=== PATIENT | male | born 1955 | race Caucasian/White ===

== ENCOUNTER 2016-02-27 15:15 | Emergency (ER) | payer MEDICARE ==
[~2016-02-27 15:15] MED LIST: AMN100C PO; ASPI-973 PO; ATOR20TA65 PO; BENZ1TAB7 PO; BENZ2AMP3 IJ; CARB1TAB14 PO; CHOL200025 PO; FLUO40CA12 PO; HYDR12.5 PO; LACT10SO27 PO; LORA1TAB PO; OXYB5TAB10 PO; PRAZ2CAP2 PO; PRIM50TA PO; TRAZ-118 PO; ZOLP10TA5 PO
[2016-02-27 15:24] VITALS: BP 139/80; PULSE 77; RESP 19; O2SAT 93
[2016-02-27 15:44] LABS: BASOPHILS % (AUTO) 0.6 % (0-3); EOSINOPHILS % (AUTO) 4.1 % (0-5); MONOCYTES % (AUTO) 16.5 % (4-12); Mean Corpuscular Hemoglobin 31.3 pg (27.0-35.0); NEUTROPHILS % (AUTO) 40.4 % (40-74); Platelet Count 286 bil/L (150-400)
[2016-02-27 16:57] VITALS: BP 131/79; PULSE 70; RESP 16; O2SAT 96
--- NOTE | 2016-02-27 19:01 | ED.REPORT ---
HPI-Seizure Date of Service Feb 27, 2016 ED Provider: Joey Molina MD 60 year old male with a history of seizures, Parkinson's, PTSD and bipolar disorder presents to the ER via EMS due to seizure that occurred just prior to arrival. IM Versed administered by medics in the field. Currently he states that he "feels heavy". Associated symptom of neck "tightness". Patient denies chest pain, and headache. He takes Ativan for his seizures. Nursing Notes Stated Complaint: SEIZURE Chief Complaint: Seizure Nursing Notes Reviewed: Yes Allergies: Coded Allergies: haloperidol (Verified Allergy, Severe, Extrapyramidal Symptoms, 09/08/15) diazepam (Verified Adverse Reaction, Intermediate, sedation at low doses. , 09/08/15) Scheduled Amantadine (Amantadine) 100 Mg Cap 200 MG PO DAILY Aspirin (Aspirin) 81 Mg Tabec 81 MG PO DAILY Atorvastatin Calcium (Atorvastatin Calcium) 20 Mg Tablet 20 MG PO HS Benztropine Mesylate (Benztropine Mesylate) 1 Mg Tablet 1 MG PO BID Carbidopa/Levodopa 25-100 mg (Carbidopa/Levodopa 25-100 mg) 1 Each Tablet 2 TAB PO TID Cholecalciferol (Vitamin D3) (Vitamin D3) 2,000 Unit Tablet 2,000 UNIT PO DAILY Fluoxetine (Prozac) 40 Mg Capsule 40 MG PO DAILY Hydrochlorothiazide (Hydrochlorothiazide) 12.5 Mg Capsule 12.5 MG PO DAILY Lactulose (Lactulose) 10 Gm/15 Ml Solution 10 GM PO DAILY Oxybutynin Chloride (Oxybutynin Chloride) 5 Mg Tablet 5 MG PO BID Prazosin (Prazosin) 2 Mg Capsule 6 MG PO HS Primidone (Primidone) 50 Mg Tablet 25 MG PO HS Trazodone (Trazodone) 100 Mg Tablet 200 MG PO HS Scheduled PRN Benztropine Mesylate (Cogentin Inj) 2 Mg/2 Ml Ampul 2 MG IJ BID PRN PRN For Spasm Lorazepam (Lorazepam) 1 Mg Tablet 1 MG PO BID PRN PRN For Restlessness Zolpidem (Zolpidem) 10 Mg Tablet 10 MG PO HS PRN PRN For Sleep General Time Seen by Provider: 18:44 Chief Complaint Chief Complaint: Seizure, generalized Seizure Anatomic Location: Generalized Hx Obtained From: Patient Arrived By: Ambulance Onset Occurred: Just prior to arrival Associated with: Denies: Headache Similar Sx Previous: Yes Past Medical History Past Medical History Notes: PCP: Dr. Palm Neurologist: Dr. Frazier Past Medical History Parkinson's Schizophrenia (Bipolar) PTSD Reports: COPD, Hypertension Past Surgical History Neck surgery Smoking History Former Smoker Social History Resides at the [facility] Alcohol Use: Denies alcohol use Drug Use: Denies drug use Other Social History: Local resident Ambulatory Status Independent Review of Systems Constitutional: Denies: Chills, Fever Respiratory: Denies: Non-productive cough, Shortness of breath Cardiovascular: Denies: Chest pain Musculoskeletal: Reports: Neck pain ("tightness") Neurologic: Reports: Seizure, Denies: Headache Complete sys rev & neg: except as marked. Physical Exam Initial Vital Signs Vital Signs (First) Date Time Temp Pulse Resp B/P Pulse Ox O2 Delivery O2 Flow Rate FiO2 02/27/16 15:24 36.4 77 19 139/80 93 Room Air 02/27/16 16:57 2 Initial VS: Reviewed Head / Eyes: Atraumatic, Normocephalic, PERRL (5mm) Abdomen / GI: Soft, Non-tender, No guarding, No rebound, No distention Extremities: Vascular intact, Neuro intact, No swelling, No tenderness Skin: Warm, Dry, No cyanosis General/Constitutional: Awake, Alert Neck: Supple, No meningismus, Full range of motion, No swelling, Non-tender Respiratory / Chest: Breath sounds NL, Breath sounds = bilat, No respiratory distress, No rales, No rhonchi, No wheezing Cardiovascular: Heart rate NL, Regular rhythm, Heart sounds NL, Peripheral circulation NL Neurologic: No sensory deficits Mental Status: Positive: Disoriented to place Symmetric face. Interpretation & Diagnostics Lab Results Interpretation Result Diagram: 02/27/16 1541 02/27/16 1541 Test 02/27/16 15:41 White Blood Count 10.9th/mm3 (3.8-10.1) Red Blood Count 4.86mil/mm3 (4.40-5.80) Hemoglobin 15.2g/dL (13.8-17.2) Hematocrit 44.7% (41.0-50.0) Mean Corpuscular Volume 92.0fL (81-100) Mean Corpuscular Hemoglobin 31.3pg (27.0-35.0) Mean Corpuscular Hemoglobin Concent 34.0% (32.0-37.0) Red Cell Distribution Width 14.0% (12.3-15.4) Platelet Count 286bil/L (150-400) Neutrophils (%) (Auto) 40.4% (40-74) Lymphocytes (%) (Auto) 38.0% (14-46) Monocytes (%) (Auto) 16.5% (4-12) Eosinophils (%) (Auto) 4.1% (0-5) Basophils (%) (Auto) 0.6% (0-3) Sodium Level 140mEq/L (134-144) Potassium Level 4.3mEq/L (3.5-5.2) Chloride Level 103mEq/L (97-108) Carbon Dioxide Level 20mmol/L (18-29) Blood Urea Nitrogen 10mg/dL (8-27) Creatinine 0.77mg/dL (0.76-1.27) Estimat Glomerular Filtration Rate 110mL/min (>59) Glucose Level 106mg/dL (60-99) Calcium Level 9.0mg/dL (8.5-10.1) Total Bilirubin 0.2mg/dL (0.0-1.2) Aspartate Amino Transf (AST/SGOT) 33U/L (0-50) Alanine Aminotransferase (ALT/SGPT) 20U/L (0-44) Alkaline Phosphatase 86U/L (25-160) Total Protein 7.2g/dL (6.4-8.4) Albumin 4.0g/dL (3.4-5.0) Valproic Acid (Depakene) Level 37ug/mL (50-125) Re-Eval/Medical Decision Med Decision/Clinical Course Even recent visits for abnormal movements and tardive dyskinesia, it is not clear to me that seizure is the diagnosis here. The patient does not have a seizure disorder as far as he knows nor do I find documentation of same in the chart. He was heavily medicated prior to arrival and has had no abnormal movements while here. His valproic acid level is low and therefore I have dosed him with a triple dose of Depakote ER and given 1 mg of Cogentin. I will recommend outpatient follow-up closely and more vigilant monitoring of his medication administration. Source of Hx: Old records Counseled Regarding: Diagnosis, Lab results, Need for follow-up, When/why to return to ED Discharge & Departure Impression: Primary Impression: Seizure Additional Impression: Tardive dyskinesia Disposition: Home Discharge Condition All VS Reviewed: Yes Condition: Stable Additional Instructions: No significant abnormalities are found after evaluation here in the emergency department tonight. With your history of tardive dyskinesia, I think it is exceedingly important that you take the Depakote as prescribed as well as the Cogentin prescribed. Go ahead and use the Ativan prescribed as needed. Follow up tomorrow or Thursday in the clinic for further evaluation to make sure that your medications are dosed properly. Return to the emergency department for uncontrolled symptoms. Referrals: Dayne Ayala (PCP) [place] Attestation Portions of this note were transcribed by Home Waters and Ole Tomlin. I, Dr. Molina, personally performed the history, physical exam and medical decision-making; I reviewed and confirmed the accuracy of the information in the transcribed note. Signed by: Bryson Yung, 02/26 and 20:35 copies to: Dayne Ayala Kirk H MD Feb 27, 2016 19:01 OLE TOMLIN Feb 27, 2016 20:06 Home Waters Feb 27, 2016 20:34
[2016-02-27 19:08] VITALS: BP 146/65; PULSE 72; RESP 18; O2SAT 95
[2016-02-27] MEDS ORDERED: Divalproex (QD) 250 mg ER24 Tablet PO ONE (19:10)
[2016-02-27 20:32] VITALS: BP 149/77; PULSE 94; RESP 20; O2SAT 94
== END 2016-02-27 21:00 | disposition home or self-care (01) ==
LOC: SED 15:15
DX: R56.9 Unspecified convulsions (principal); G24.01 Drug induced subacute dyskinesia; T42.4X5A Adverse effect of benzodiazepines, initial encounter; I10 Essential (primary) hypertension; G20 Parkinson's disease; F43.10 Post-traumatic stress disorder, unspecified; Z87.891 Personal history of nicotine dependence; Z79.82 Long term (current) use of aspirin; Z88.8 Allergy status to other drugs, medicaments and biological substances

== ENCOUNTER 2016-03-06 14:52 | Inpatient (IN) | payer MEDICARE ==
[~2016-03-06] VITALS: Ht 177.8 cm; Wt 96.6 kg
--- NOTE | 2016-03-06 14:57 | ED.REPORT ---
HPI-Altered Mental Status Date of Service Mar 06, 2016 ED Provider: Dr. Crabtree Pt is a 65 y/o male w/ a hx of seizures, Parkinson's, presenting to the ED via EMS due to altered mental status onset 0600 today. The [facility] and his roommate found him awake but unresponsive with seizure-like activity mumbling in bed since 0600. According to EMS, he was able to open his eyes but is not tracking and is muttering "word salad". His BP was 142 systolic , HR 96, respiration rate 20, and O2 sat 98% on room air, blood sugar 115. He appeared to be maintaining his airway. He was not given Ativan because he was intermittently responsive and medics were unsure if he was seizing. No personal history able to be obtained secondary to mental status. Nursing Notes Stated Complaint: UNRESPONSIVE Nursing Notes Reviewed: Yes Allergies: Coded Allergies: haloperidol (Verified Allergy, Severe, Extrapyramidal Symptoms, 09/08/15) diazepam (Verified Adverse Reaction, Intermediate, sedation at low doses. , 09/08/15) Scheduled Amantadine (Amantadine) 100 Mg Cap 200 MG PO DAILY Aspirin (Aspirin) 81 Mg Tabec 81 MG PO DAILY Atorvastatin Calcium (Atorvastatin Calcium) 20 Mg Tablet 20 MG PO HS Benztropine Mesylate (Benztropine Mesylate) 1 Mg Tablet 1 MG PO BID Carbidopa/Levodopa 25-100 mg (Carbidopa/Levodopa 25-100 mg) 1 Each Tablet 2 TAB PO TID Cholecalciferol (Vitamin D3) (Vitamin D3) 2,000 Unit Tablet 2,000 UNIT PO DAILY Fluoxetine (Prozac) 40 Mg Capsule 40 MG PO DAILY Hydrochlorothiazide (Hydrochlorothiazide) 12.5 Mg Capsule 12.5 MG PO DAILY Lactulose (Lactulose) 10 Gm/15 Ml Solution 10 GM PO DAILY Oxybutynin Chloride (Oxybutynin Chloride) 5 Mg Tablet 5 MG PO BID Prazosin (Prazosin) 2 Mg Capsule 6 MG PO HS Primidone (Primidone) 50 Mg Tablet 25 MG PO HS Trazodone (Trazodone) 100 Mg Tablet 200 MG PO HS Scheduled PRN Benztropine Mesylate (Cogentin Inj) 2 Mg/2 Ml Ampul 2 MG IJ BID PRN PRN For Spasm Lorazepam (Lorazepam) 1 Mg Tablet 1 MG PO BID PRN PRN For Restlessness Zolpidem (Zolpidem) 10 Mg Tablet 10 MG PO HS PRN PRN For Sleep General Time Seen by MD: 14:56 Chief Complaint Other (AMS) Hx Obtained From: EMS Unable to Obtain Hx: Patient condition, Mental status Arrived By: Ambulance Sudden in Onset?: Yes (unknown) Past Medical History Past Medical History Seizures Parkinson's Schizophrenia Bipolar disorder PTSD COPD Hypertension Past Surgical History Neck Smoking History Former Smoker Social History Resides at [facility] Alcohol Use: Denies alcohol use Drug Use: Denies drug use Other Social History: Local resident Ambulatory Status Independent Review of Systems Unable to Obtain ROS Patient condition, Mental status Physical Exam Physical Exam Notes: Exam limited due to unresponsive patient Initial Vital Signs Vital Signs (First) Date Time Temp Pulse Resp B/P Pulse Ox O2 Delivery O2 Flow Rate FiO2 03/06/16 15:18 37.1 89 19 151/103 99 Room Air Initial VS: Reviewed Extremities: Vascular intact, No swelling Skin: Warm, Dry, No cyanosis General/Constitutional: Awake Distress / Hydration: Positive: Dehydration moderate Head / Eyes: Atraumatic, Normocephalic, PERRL (4-5 mm bilat) Neck: Atraumatic, Supple, No meningismus, Full range of motion Respiratory / Chest: Atraumatic, Breath sounds NL, Breath sounds = bilat, No respiratory distress, No rales, No rhonchi, No wheezing, No retractions, No stridor, No chest tenderness, No chest wall deformity, No crepitus Cardiovascular: Regular rhythm, Heart sounds NL, No gallop, No murmurs, No rubs , Cap refill not delayed, Peripheral circulation NL Heart Rate / Rhythm: Positive: Tachycardia (mild) NEURO: Awake Tardive dyskinesia Eyes open to voice Abdomen: Atraumatic, Soft Tenderness/Guarding/Rebound: Positive: Tender diffuse Bowel Sounds / Distention: Positive: Distention mild Interpretation & Diagnostics Lab Results Interpretation Result Diagram: 03/06/16 1506 03/06/16 1506 Test 03/06/16 15:06 03/06/16 16:26 03/06/16 17:14 White Blood Count 14.2th/mm3 (3.8-10.1) Red Blood Count 5.52mil/mm3 (4.40-5.80) Hemoglobin 17.2g/dL (13.8-17.2) Hematocrit 49.0% (41.0-50.0) Mean Corpuscular Volume 88.8fL (81-100) Mean Corpuscular Hemoglobin 31.2pg (27.0-35.0) Mean Corpuscular Hemoglobin Concent 35.1% (32.0-37.0) Red Cell Distribution Width 14.3% (12.3-15.4) Platelet Count 335bil/L (150-400) Neutrophils (%) (Auto) 57.0% (40-74) Lymphocytes (%) (Auto) 24.9% (14-46) Monocytes (%) (Auto) 15.8% (4-12) Eosinophils (%) (Auto) 1.5% (0-5) Basophils (%) (Auto) 0.4% (0-3) Prothrombin Time 10.6sec (8.1-12.5) Prothromb Time International Ratio 0.99ratio Sodium Level 140mEq/L (134-144) Potassium Level 4.3mEq/L (3.5-5.2) Chloride Level 104mEq/L (97-108) Carbon Dioxide Level 20mmol/L (18-29) Blood Urea Nitrogen 10mg/dL (8-27) Creatinine 0.94mg/dL (0.76-1.27) Estimat Glomerular Filtration Rate 87mL/min (>59) Glucose Level 114mg/dL (60-99) Calcium Level 9.5mg/dL (8.5-10.1) Total Bilirubin 0.6mg/dL (0.0-1.2) Aspartate Amino Transf (AST/SGOT) 35U/L (0-50) Alanine Aminotransferase (ALT/SGPT) 22U/L (0-44) Alkaline Phosphatase 93U/L (25-160) Total Protein 7.7g/dL (6.4-8.4) Albumin 4.2g/dL (3.4-5.0) Hold Urine Received (Received) Ammonia 42ug/dL (18-53) Lab Results Interpretation: Urine tox: negative ECG Interpretation ECG Interpretation: Sinus rhythm rate 89 Abnormal R-wave progression, early transition Nonspecific T wave abnormalities, lateral leads Prolonged QT interval - QTc 558 Time: 15:12 Interpreted by: ED physician Normal ECG Interpretation: No acute ischemic changes X-Ray Chest Interpretation Chest Xray Interpretation: IMPRESSION: No acute cardiopulmonary disease. Dictated by: Markos Joseph RR Interpreted: Cecelia Billings MD on 03/06/2016 at 16:26 Transcribed by: KEITH on 03/06/2016 at 16:26 View: Portable, 1 view Interpretation / Wet Read by: Interpret - Radiologist CT Head Interpretation Impression: 1. No acute intracranial abnormality 2. Sinus disease Dictated by: Benson Plummer MD on 03/06/2016 at 15:43 Study: Head CT no contrast Interpretation / Wet Read by: Interpret - Radiologist CT Abd / Pelvis Interpretation IMPRESSION: 1. No acute intra-abdominal findings. Normal appendix. 2. Aortic atherosclerosis. Dictated by: Jeanine Pantoja M.D. on 03/06/2016 at 15:54 Approved by: Jeanine Pantoja M.D. on 03/06/2016 at 16:30 Study type: Abdominal CT IV contrast Interpretation / Wet Read by: Interpret - Radiologist Re-Eval/Medical Decision Med Decision/Clinical Course 60-year-old with seizures and tardive dyskinesia and parkinsonism presents confused and semi-responsive throughout the entire day, probably intermittently having seizures and in up postictal state. He is unable to walk and unable to care for himself at this point. I am loading him with Keppra while awaiting results of his primidone and phenobarbital levels. He is admitted to the med service observation status for further evaluation. Source of Hx: Old records, EMS, Friend Re-Evaluation/Progress : Time of Eval: 16:40 Re-Evaluation/Progress Note: Pt is sleeping comfortably. All imaging negative. Awaiting toxicology labs and UA. Counseled Regarding: Diagnosis, Lab results, Need for follow-up, When/why to return to ED Patient Discharge & Departure Impression: Primary Impression: Seizure Additional Impressions: Weakness Tardive dyskinesia Postictal state Disposition: Home Discharge Condition All VS Reviewed: Yes Condition: Stable Scribe Attestation Portions of this note were transcribed by Raul Montes. I, Dr. Crabtree personally performed the history, physical exam and medical decision-making; I reviewed and confirmed the accuracy of the information in the transcribed note. Signed by Bryson Sue, 03/06/16 - 1599 Tor Crabtree MD Mar 06, 2016 14:57 RAUL MONTES Mar 06, 2016 15:05
[2016-03-06] MEDS ORDERED: 0.9% Sodium Chloride 1,000 ML IV ONE (15:06)
[2016-03-06 15:15] LABS: BASOPHILS % (AUTO) 0.4 % (0-3); EOSINOPHILS % (AUTO) 1.5 % (0-5); MONOCYTES % (AUTO) 15.8 % (4-12); Mean Corpuscular Hemoglobin 31.2 pg (27.0-35.0); Mean Corpuscular Volume 88.8 fL (81-100); Platelet Count 335 bil/L (150-400)
[2016-03-06 15:18] VITALS: BP 151/103; PULSE 89; RESP 19; O2SAT 99
[2016-03-06] MEDS ORDERED: Ketamine 10 mg/mL 20 mL Inj ONE (15:25)
[2016-03-06] MEDS ORDERED: Ketamine 10 mg/mL 20 mL Inj IV ONE (15:25)
[2016-03-06 15:27] LABS: INR 0.99 ratio
[2016-03-06 16:09] VITALS: BP 129/88; PULSE 58; RESP 13; O2SAT 98
--- NOTE | 2016-03-06 16:26 | DRSVH ---
PROCEDURE: X-RAY CHEST ONE VIEW, PORTABLE ([id number]) INDICATIONS: SEIZURE TECHNIQUE: One view of the chest was acquired. COMPARISON: [facility], CR, XR CHEST 1VW (PORTABLE), 12/30/2015, 7:13. FINDINGS: Surgical changes and devices: Lower cervical spine fixation hardware incompletely visualized. Lungs and pleura: No pleural effusions or pneumothorax. Lungs are clear. Mediastinum: Mediastinal contours appear normal. Heart size is normal. Bones and chest wall: No suspicious bony lesions. Overlying soft tissues appear unremarkable. IMPRESSION: No acute cardiopulmonary disease. Dictated by: Markos Joseph [facility] Interpreted: Cecelia Billings MD on 03/06/2016 at 16:26 Transcribed by: KEITH on 03/06/2016 at 16:26 Approved by: Cecelia Billings MD, PhD on 03/06/2016 at 17:26
--- NOTE | 2016-03-06 16:32 | DRSVH ---
PROCEDURE: CT ABDOMEN AND PELVIS WITHOUT CONTRAST ([id number]) INDICATIONS: diffuse belly pain, decreased responsiveness TECHNIQUE: Noncontrast 5 mm thick sections acquired from the diaphragms to the symphysis. 5 mm coronal and sagi ttal reformats were then performed. For radiation dose reduction, the following was used: automated exposure control, adjustment of mA and/or kV according to patient size. COMPARISON: None. FINDINGS: Image quality: Excellent. ABDOMEN: Lung bases: Lung bases are clear. Heart size is normal. Solid organs: Liver and spleen are normal in size. Gallbladder is unremarkable. Pancreas is normal in contours. No adrenal nodules. Kidneys are normal in size, without hydronephrosis or nephrolithi asis. Peritoneum and bowel: Unenhanced bowel loops demonstrate normal wall thickness and caliber. The appe ndix is thin walled and gas filled. No free fluid or air. Nodes and vessels: No retroperitoneal or mesenteric adenopathy by size criteria. Aorta and inferior vena cava are normal in caliber. There are scattered atheromatous calcifications throughout the aor ta and iliac arteries bilaterally. Miscellaneous: No ventral hernias. PELVIS: Genitourinary: Bladder is decompressed and a Watson catheter is present. Miscellaneous: No inguinal hernias or adenopathy. Bones: No suspicious bony lesions. No vertebral body compression fractures. IMPRESSION: 1. No acute intra-abdominal findings. Normal appendix. 2. Aortic atherosclerosis. Dictated by: Jeanine Pantoja M.D. on 03/06/2016 at 15:54 Approved by: Jeanine Pantoja M.D. on 03/06/2016 at 16:30
[2016-03-06 16:37] VITALS: BP 146/94; PULSE 67; RESP 11; O2SAT 100
[2016-03-06 17:44] VITALS: BP 122/93; PULSE 91; RESP 16; O2SAT 98
[2016-03-06] MEDS ORDERED: levETIRAcetam Inj 1,000 MG in IV Premix 1 EACH IV ONE (19:35)
[2016-03-06] MEDS ORDERED: Ondansetron 2 mg/mL 2 mL Inj IVPUSH PRN (19:40)
[2016-03-06] MEDS ORDERED: Polyethylene Glycol (PEG) 17 Gm Powder PO PRN (19:40)
[2016-03-06] MEDS ORDERED: Alum-Mag Hydrox-Simeth 30 mL Suspension PO PRN (19:40)
[2016-03-06 19:56] LABS: APPEARANCE,URINE CLEAR (CLEAR,HAZY); COLOR,URINE YELLOW (YELLOW); PH,URINE 7.5 (5.0-8.0)
[2016-03-06 19:57] LABS: OCCULT BLOOD,URINE NEGATIVE (NEGATIVE); UROBILINOGEN,URINE NORMAL (NORMAL)
--- NOTE | 2016-03-06 20:40 | NUR ---
Admit Arrived floor via tech was able to transfer sba t bed ,report received from Lamar JANG RN dx is prolonged post ictal state after having a sz and apparently being out for 2hrs per report, currently is A&O x3 ,skin is good have copy of wound check from 01/23/describing healed BLE wounds. hear to assess currently NPO admission complete w/exception of med rec , sz pads placed
[2016-03-06 21:06] VITALS: BP 150/106; PULSE 94; RESP 18; O2SAT 97
--- NOTE | 2016-03-06 21:08 | PCM.HPMED ---
Subjective Date of Service Mar 06, 2016 Primary Provider: Admitting Physician: Primary Care Physician: Dayne Ayala Attending Physician: Chief Complaint: Unresponsive History of Present Illness: Darshan Horowitz is a 65 y/o male with Seizures, Parkinson's, presenting to the [facility] emergency department via EMS due to altered mental status onset 0600 today. The patient lives at [facility] and his roommate found him awake but unresponsive with seizure-like activity mumbling in bed since 0600. According to EMS, he was able to open his eyes but is not tracking and is muttering "word salad". He appeared to be maintaining his airway. He was not given Ativan because he was intermittently responsive and medics were unsure if he was seizing. Notes from the Clinic showed patient had called Dr Frazier to express concern about having frequent seizures lately. It was documented that patient stated he has not been taking his medications regularly. "I've been neglecting them". He reports taking Lorazepam 0.5mg and Depakote ER 250mg 1/2 tab 2x/day. He states his symptoms are muscle tension in his stomach and chest and weird noises coming out of his mouth. When speaking with pt he began to make choking noises. I asked if he was starting a seizure, he said yes. 911 called. ? seizure last approximately 15+ minutes. [facility] voices at [phone].\\ Case discussed with Dr Crabtree, patient still not at baseline from hours of close monitoring in the ED, Workup so far unremarkable. CT head negative. CT Abdomen is negative as well. Review of Systems: unable to be obtained due to confusion Allergies Coded Allergies: haloperidol (Verified Allergy, Severe, Extrapyramidal Symptoms, 09/08/15) diazepam (Verified Adverse Reaction, Intermediate, sedation at low doses. , 09/08/15) Home Medications From [facility], not yet confirmed Darshan Horowitz [id number] 01/24/2016 09:00 AM 02/11 Depakote ER Oral Tablet Extended Release 24 Hour 250 MG TAKE 1 TABLET BY MOUTH 2 TIMES EVERY DAY lorazepam 0.5 mg tablet take 0.5 - 1 tablet by ORAL route 2 times every day as needed for convulsions melatonin 3 mg tablet take 1 by Oral route at bedtime mirtazapine 15 mg tablet take 0.5 tablet by oral route every day before bedtime propranolol 20 mg tablet take 1 tablet by oral route every day ranitidine 150 mg tablet take 1 tablet by oral route 2 times every day trihexyphenidyl 2 mg tablet take 1 tablet by oral route three times daily PMH Schizophrenia with paranoia Parkinson disease Hyperlipidemia Hypertension Sleep Apnea Essential tremors Restless Leg syndrome COPD PTSD . Surgical History Cervical fusion Low back surgery Tonsillectomy Family History Father, at 82 from emphysema Social History Hx Alcohol Use: Yes (NONE IN ABOUT A YEAR) Hx Substance Use: No Hx Tobacco Use: Yes Smoking Status: Former Smoker Living Arrangement: Detention (lives in an Adult facility) Exam Vital Signs Vital Sign - Last Date Time Temp Pulse Resp B/P Pulse Ox O2 Delivery O2 Flow Rate FiO2 03/06/16 17:44 91 16 122/93 98 Room Air 03/06/16 15:18 37.1 Exam General: Alert, Oriented X3, Cooperative, No acute Distress. Keeps sticking his tongue out and moving his lips constantly Eyes: PERRLA, Scleral Anicteric Mouth: Mouth Normal, Mucous Membranes Moist/[place]. No tongue trauma noted Neck: Supple, no Thyromegaly, trachea central. Chest & Lungs: Clear to auscultation & percussion, No adventitious breath sounds, no crackles, no wheeze Cardiovascular: Normal S1, Normal S2, No Murmurs/Rubs/Gallops, Regular Rate/ Rhythm, (No JVD, no peripheral edema) Pulses: Radial (present and equal), Dorsalis Pedi (present and equal) Abdomen: Soft, Non-tender, Non-distended, Normoactive bowel tones. Musculoskeletal: Unremarkable. Normal range of motion, no swollen or erythematous joints Extremities: No edema, no cyanosis, no clubbing. Skin: No rashes. Warm and dry, no erythematous areas Neurological: Grossly neurologically intact, has generalized weakness, Normal Speech, Sensation Intact Lymphatic: Lymph nodes Cervical and Axillary not palpable. Lab and Diagnostics Labs Laboratory Tests Test 03/06/16 15:06 03/06/16 16:20 03/06/16 16:26 03/06/16 17:14 White Blood Count 14.2th/mm3 (3.8-10.1) Red Blood Count 5.52mil/mm3 (4.40-5.80) Hemoglobin 17.2g/dL (13.8-17.2) Hematocrit 49.0% (41.0-50.0) Mean Corpuscular Volume 88.8fL (81-100) Mean Corpuscular Hemoglobin 31.2pg (27.0-35.0) Mean Corpuscular Hemoglobin Concent 35.1% (32.0-37.0) Red Cell Distribution Width 14.3% (12.3-15.4) Platelet Count 335bil/L (150-400) Neutrophils (%) (Auto) 57.0% (40-74) Lymphocytes (%) (Auto) 24.9% (14-46) Monocytes (%) (Auto) 15.8% (4-12) Eosinophils (%) (Auto) 1.5% (0-5) Basophils (%) (Auto) 0.4% (0-3) Prothrombin Time 10.6sec (8.1-12.5) Prothromb Time International Ratio 0.99ratio Sodium Level 140mEq/L (134-144) Potassium Level 4.3mEq/L (3.5-5.2) Chloride Level 104mEq/L (97-108) Carbon Dioxide Level 20mmol/L (18-29) Blood Urea Nitrogen 10mg/dL (8-27) Creatinine 0.94mg/dL (0.76-1.27) Estimat Glomerular Filtration Rate 87mL/min (>59) Glucose Level 114mg/dL (60-99) Calcium Level 9.5mg/dL (8.5-10.1) Total Bilirubin 0.6mg/dL (0.0-1.2) Aspartate Amino Transf (AST/SGOT) 35U/L (0-50) Alanine Aminotransferase (ALT/SGPT) 22U/L (0-44) Alkaline Phosphatase 93U/L (25-160) Total Protein 7.7g/dL (6.4-8.4) Albumin 4.2g/dL (3.4-5.0) Hold Urine Received (Received) Ammonia 42ug/dL (18-53) Result Diagram: 03/06/16 1506 03/06/16 1506 X-Rays, CTs and MRIs X-RAY CHEST ONE VIEW, PORTABLE 03/06 IMPRESSION: No acute cardiopulmonary disease. Dictated by: Markos Joseph RRA Interpreted: Cecelia Billings MD on 03/06/2016 at 16:26 Transcribed by: KEITH on 03/06/2016 at 16:26 Approved by: Cecelia Billings MD, PhD on 03/06/2016 at 17:26 CT ABDOMEN AND PELVIS WITHOUT CONTRAST 03/06 IMPRESSION: 1. No acute intra-abdominal findings. Normal appendix. 2. Aortic atherosclerosis. Dictated by: Jeanine Pantoja M.D. on 03/06/2016 at 15:54 Approved by: Jeanine Pantoja M.D. on 03/06/2016 at 16:30 Assessment & Plan Darshan Horowitz is a 65 y/o male with Seizures, Parkinson's, presenting to the [facility] emergency department via EMS due to altered mental status. Work up so far including Imaging and labs showed cause is still unclear. Admitted for close monitoring of mental status tonight 1. Acute Encephalopathy. Present on admission Likely from post ictal state from seizure episodes. No evidence of infections including a normal urinalysis. CT head showed no bleeding or Stroke - monitor closely neurologically - nothing by mouth till more awake to avoid aspiration 2. Seizure disorder with possible seizure episodes. Present on admission Likely due to non compliance with medications. Patient may need help with medications administration, will have social worker palliative care look into this - continue seizure precaution with PRN Lorazepam for seizure episodes - continue Keppra - Valproic acid levels from 02/27/16 low at 37 - consider EEG tomorrow and Neurology consult in the morning 3. Parkinson's Disease - Previously on Sinemet, Benztropine and primidone. closely monitored by Dr Frazier, at our local Neurology clinic - Currently on Trihexyphenidyl 2 mg tid 4. Schizophrenia. Chronic presumed stable without any hallucinations currently - Acetaminophen as needed for mild pain/fever/headache - Bowel regimen as needed - Antiemetic as needed Patient is admitted under observation status with expected length of stay less than 2 midnights due to severity of presenting symptoms, risk of adverse event, and complexity of treatment plan. . Resuscitation Status: CPR: Attempt Resuscitation Chavez Schultz MD Mar 06, 2016 19:43
[2016-03-06] MEDS: 0.9% Sodium Chloride 1,000 ML IV SCH (21:16)
[2016-03-07 06:09] VITALS: BP 116/69; PULSE 71; RESP 18; O2SAT 96
[2016-03-07] MEDS ORDERED: DIVA250T2 PO (07:23)
[2016-03-07 07:35] LABS: BASOPHILS % (AUTO) 0.3 % (0-3); EOSINOPHILS % (AUTO) 2.2 % (0-5); MONOCYTES % (AUTO) 16.7 % (4-12); Mean Corpuscular Hemoglobin 31.5 pg (27.0-35.0); Mean Corpuscular Volume 92.4 fL (81-100); NEUTROPHILS % (AUTO) 52.2 % (40-74); Platelet Count 253 bil/L (150-400)
[2016-03-07] MEDS ORDERED: MELA3TAB35 PO (08:37)
[2016-03-07] MEDS ORDERED: LORA0.5T PO (08:37)
[2016-03-07] MEDS ORDERED: MIRT15TA6 PO (08:38)
[2016-03-07] MEDS ORDERED: PROP20TA5 PO (08:38)
[2016-03-07] MEDS ORDERED: TRIH2TAB2 PO (08:39)
[2016-03-07] MEDS ORDERED: RANI150C4 PO (08:39)
[2016-03-07] MEDS ORDERED: FLUO20CA25 PO (08:41)
[2016-03-07] MEDS: 0.9% Sodium Chloride 1,000 ML IV SCH (09:01)
[2016-03-07 10:32] VITALS: BP 89/60; PULSE 99; O2SAT 95
[2016-03-07 10:40] VITALS: BP 95/57; PULSE 90; O2SAT 95
[2016-03-07] MEDS ORDERED: MGPE IV ONE (10:45)
[2016-03-07] MEDS ORDERED: FOSPHENYTOIN IV ONE (10:45)
[2016-03-07] MEDS ORDERED: SODIUM CHLORIDE 0.9% IV ONE (10:45)
--- NOTE | 2016-03-07 11:05 | NUR ---
RAPID RESPONSE Pt with witnessed grand mal seizure starting at 10:20 this morning Rapid Response called and pt. positioned on Right side. MD notified, Oxygen delivered at 4L/NC. Eyes deviated down. Pt not responding to verbal stimuli. Blood Glucose 91. Ativan 2 mg given at 10:30 and 2 mg given again at 10:32. pt is not following commands. BP 89/60 with HR 90's SPO2 95%. Pt starting to respond to ativan, Seizures slowing down. Another Ativan 1 mg ordered but not delivered due to IV infiltrate. Seizures stopped at 10:38. Eyes now mid point. Post ictal. Pt transferred to CCU Upon transfer to CCU bed pt started to have another seizure that lasted about 1 1/2 min-2 min. pt again became postictal. IV access obtained. At 11:10 pt starting to respond to stimuli. BP 95/57. Pt now resting comfortably in CCU.
[2016-03-07 11:30] VITALS: BP 112/60; PULSE 74; RESP 15; O2SAT 97
[2016-03-07 12:38] LABS: Magnesium 1.9 mg/dL (1.6-2.6)
[2016-03-07] MEDS: Dextrose 5% 0.9% NaCl 1,000 ML IV SCH (13:13)
--- NOTE | 2016-03-07 15:18 | PCM.PNMED ---
Subjective Date of Service Mar 07, 2016 Subjective unable to obtain ROS 2ndry to patient having active seizure this am followed by post-ictal and sedated state. Exam Vital Signs Vital Sign - Last Date Time Temp Pulse Resp B/P Pulse Ox O2 Delivery O2 Flow Rate FiO2 03/07/16 11:30 Supplement Oxygen 03/07/16 11:30 36.7 74 15 112/60 97 4.00 Intake and Output 03/06/16 03/06/16 03/07/16 Cumulative From/Thru 15:00 23:00 07:00 03/06/16 15:18 - 03/07/16 06:09 Intake Total 1000 ml 200 ml 1200 ml Output Total 1000 ml 450 ml 1450 ml Balance 0 ml -250 ml -250 ml Intake Oral 200 ml 200 ml IV Total 1000 ml 1000 ml Output Urine Total 1000 ml 450 ml 1450 ml # Bowel Movements 1 1 Exam Rapid response called this am after patient found seizing soon after IV Keppra administered. Total 5mg IV Ativan given before patient finally slowly started to calm down after about 15 minutes of active seizure. Vitals including O2 sat were stable during this episode and airway patent and intact. patient lost peripheral IV access during last round of IV ativan. Dr. Frazier from Neuro consulted who recommended IV Dilantin. Patient transferred to ICU and orders for IV Dilantin relayed to pharmacy. Head: Normal Eyes: Scleral Anicteric Mouth: Mucous Membr Moist/[place] Chest & Lungs: Chest Wall Normal, Clear to auscultation & percussion Cardiovascular: Regular Rate/Rhythm Abdomen: Non-tender, Normoactive bowel tones, Soft Extremities: No cyanosis/clubbing/edma bilat IVs and Medications Medications Reviewed: Medications were reviewed in detail Lab and Diagnostics Result Diagram: 03/07/16 0700 03/07/16 1043 X-Rays, CTs and MRIs X-RAY CHEST ONE VIEW, PORTABLE 03/06 IMPRESSION: No acute cardiopulmonary disease. Dictated by: Markos Joseph [facility] Interpreted: Cecelia Billings MD on 03/06/2016 at 16:26 Transcribed by: KEITH on 03/06/2016 at 16:26 Approved by: Cecelia Billings MD, PhD on 03/06/2016 at 17:26 CT ABDOMEN AND PELVIS WITHOUT CONTRAST 03/06 IMPRESSION: 1. No acute intra-abdominal findings. Normal appendix. 2. Aortic atherosclerosis. Dictated by: Jeanine Pantoja M.D. on 03/06/2016 at 15:54 Approved by: Jeanine Pantoja M.D. on 03/06/2016 at 16:30 Assessment & Plan 65 y/o male with Seizures, Parkinson's, presenting to the [facility] emergency department via EMS due to altered mental status. 1. Acute Encephalopathy. Present on admission. ongoing - Likely from post ictal state from seizure episodes. - No evidence of infections including a normal urinalysis. - CT head showed no bleeding or Stroke - monitor closely neurologically - nothing by mouth till more awake to avoid aspiration - in addition to post ictal state current altered mental status also likely due sedation from Ativan 2. Seizure disorder with active and acute seizure - Likely due to non compliance with medications. Patient may need help with medications administration, will need social media project manager look into this - continue seizure precaution with PRN Lorazepam for seizure episodes - Neurology consulted this morning. will f/u w/ further recs by Dr. Frazier - 2gram of IV Fosphenytoin at 50mg/hr already ordered. Further antiepileptic medication per neurology recs - Valproic acid levels from 02/27/16 low at 37 3. Parkinson's Disease - Previously on Sinemet, Benztropine and primidone. - Currently on Trihexyphenidyl 2 mg tid 4. Schizophrenia. Chronic - presumed stable without any hallucinations reported on admission Dispo: patient transferred to ICU today for closer monitoring and treatment. d/ c likely in 2-3 days VTE Mechanical Devices: Intermittant Pneumatic CD Resuscitation Status: CPR: Attempt Resuscitation Time spent 35 min of critical care Willi De Los Santos Mar 07, 2016 15:18
[2016-03-07 16:00] VITALS: BP 100/74; PULSE 72; RESP 18; O2SAT 97
--- NOTE | 2016-03-07 16:54 | DRSVH ---
PROCEDURE: X-RAY PICC LINE PLACEMENT BY NURSE ([id number]) INDICATIONS: NEED PICC PER DO COMPARISON: None. FINDINGS: PICC was placed by the intravenous therapy team from the right side. Fluoroscopic spot fi lm demonstrates tip projected over the lower SVC. IMPRESSION: Tip of PICC projected over the lower SVC . Dictated by: Markos DOA Interpreted: Cecelia Billings MD on 03/07/2016 at 16:49 Transcribed by: KEITH on 03/07/2016 at 16:49 Approved by: Cecelia Billings MD, PhD on 03/07/2016 at 16:57
[2016-03-07] MEDS ORDERED: Sodium Chloride LOK Flush 10 mL Syringe IVFLUSH PRN (17:35)
--- NOTE | 2016-03-07 18:13 | NUR ---
Transfer... Received from [facility] at 11am. Pt was postictal on arrival. Has since been awake and conversant with mumbled speech, c/o thirst and requesting water. Has slept most of afternoon. Noted to have occasional involuntary head bobbing but pt will respond, open eyes and answer to my request throughout episode. Pt required PICC placement this afternoon, due to IV's infilltrating when dilantin given. Pt's mother reached by phone and she gave phone consent for the procedure. She is the only family contact he has and she relayed her inability to care for him and concern over the pt's living conditions at his half way house. [employer] notified and are following.
[2016-03-07 20:00] VITALS: BP 98/73; PULSE 64; RESP 18; O2SAT 97
--- NOTE | 2016-03-07 20:14 | DRSVH ---
PROCEDURE: CT BRAIN WITHOUT CONTRAST ([id number]) INDICATIONS: Seizures TECHNIQUE: Noncontrast 4.5 mm thick angled axial sections acquired from the foramen magnum to the vertex, with c oronal reformats. COMPARISON: None. FINDINGS: Image quality: Excellent. CSF spaces: Basal cisterns are patent. No extra-axial fluid collections. The ventricles are symmet betty in size and shape. Brain: No intracranial bleeds or masses. There is cerebral volume loss for age, with resultant vent ricular and sulcal prominence. There are periventricular and deep white matter chronic small vessel ischemic changes. There is intracranial internal carotid artery atherosclerosis. Skull and face: Calvarium and visualized facial bones appear intact, without suspicious lesions. Sinuses: Mild bilateral maxillary sinus mucosal thickening. Moderate left and mild right ethmoid air cell mucosal thickening. Visualized sinuses and mastoids are otherwise clear. IMPRESSION: No acute intracranial abnormality. Sinus disease. Dictated by: Benson Plummer M.D. on 03/07/2016 at 20:12 Approved by: Benson Plummer M.D. on 03/07/2016 at 20:12
[2016-03-07] MEDS: Divalproex (QD) 250 mg ER24 Tablet PO SCH (22:07)
[2016-03-08] VITALS (11 sets, daily range): BP systolic 92–138; BP diastolic 54–96; PULSE 66–86; RESP 14–19; O2SAT 93–99
--- NOTE | 2016-03-08 01:31 | NUR ---
NEURO pt drowsy, asleep most of the night, pt lightly snores, pt awakens to voice or when nursing staff enters the room, pt opens eyes to verbal stimuli, pupils 6mm bilaterally, pupils react to light bilaterally, pt tracks, pt has delayed, mumbled speech, dentures are out, pt able to smile, tongue midline, pt Dr. FrazierUngehv-drmejjaqbwz-lt's baseline contains head bobbing and tremors to his hands, pt has tardive dyskinesia per report--oral assessment consistent with this diagnosis, pt oriented to self and year, pt thought he was in the doctors office, able to make needs known, occasionally tells a joke, kirt, able to help with turning in bed, no seizure activity seen, seizure pads on bed, Dr. Frazier aware of head ct results and home meds ordered, remeron placed on hold per md due to pt being so drowsy, will pass on to day shift rn about possibly reordering in am if pt more awake, pharmacy states they do not have trihexyphenidyl (ordered to start in am) pharmacy states they will notify md in am about not having this med, will pass on to day shift rn, med on apr in best way to flag staff to get clarification, scd's on, ivf per orders, right picc intact, kurtis sips h20, no choking noted, good uop per f/c, denies n/v, no bm, tele- sb/st, denies cp, bp low normal, afebrile ls-clear/decreased, sats on two liters o2 per nc=mid to upper 90's, see ccu flow sheet, cont monitoring, plan: pt on home meds, monitor for any seizures,
[2016-03-08 04:03] LABS: BASOPHILS % (AUTO) 0.4 % (0-3); EOSINOPHILS % (AUTO) 6.3 % (0-5); MONOCYTES % (AUTO) 17.2 % (4-12); Mean Corpuscular Hemoglobin 30.8 pg (27.0-35.0); Mean Corpuscular Volume 93.3 fL (81-100); NEUTROPHILS % (AUTO) 50.3 % (40-74); Platelet Count 224 bil/L (150-400)
[2016-03-08 04:08] LABS: Magnesium 1.9 mg/dL (1.6-2.6); Phosphorus 3.3 mg/dL (2.5-4.9)
[2016-03-08] MEDS: Dextrose 5% 0.9% NaCl 1,000 ML IV SCH (04:45)
[2016-03-08] MEDS: Divalproex (QD) 250 mg ER24 Tablet PO SCH ×2 (07:33→19:58)
--- NOTE | 2016-03-08 08:11 | PCM.PNMED ---
Subjective Date of Service Mar 08, 2016 Subjective No more seizures overnight. Patient a little bit confused about where he is, denies chest pain, dyspnea, nausea vomiting Exam Vital Signs Vital Sign - Last Date Time Temp Pulse Resp B/P Pulse Ox O2 Delivery O2 Flow Rate FiO2 03/08/16 07:15 37.0 72 14 114/82 94 Room Air 03/08/16 04:00 2.00 Intake and Output 03/07/16 03/07/16 03/08/16 Cumulative From/Thru 15:00 23:00 07:00 03/06/16 15:18 - 03/08/16 05:51 Intake Total 261 ml 1237 ml 2698 ml Output Total 850 ml 1300 ml 3600 ml Balance -589 ml -63 ml -902 ml Intake Oral 360 ml 560 ml IV Total 261 ml 877 ml 2138 ml Output Urine Total 850 ml 1300 ml 3600 ml # Bowel Movements 0 1 Exam Gen.- A+ O 3 no apparent distress. Thin male lying in bed with a tremor Eyes- open conjunctiva clear, pupils equal nonicteric Mouth- oral mucosa moist, no exudate ENT- ears normal, nose normal Neck- supple/trach midline CVS- RRR no murmur or gallop Lungs CTA GI- NABS/NT soft Musc- moving 4 no obvious deformity Neuro- cranial nerves II through XII intact to gross examination, nonfocal, tremor Skin- warm and dry, no rashes/lesions/wounds noted Psych- pleasant and appropriate, Lab and Diagnostics Depakote 37 02/26 LFTs normal, ammonia 42 03/08 Result Diagram: 03/08/16 0320 03/08/16 0320 X-Rays, CTs and MRIs CT head no contrast 03/07 IMPRESSION: No acute intracranial abnormality. Sinus disease. Dictated by: Benson Plummer M.D. on 03/07/2016 at 20:12 X-RAY CHEST ONE VIEW, PORTABLE 03/06 IMPRESSION: No acute cardiopulmonary disease. Dictated by: Markos GENTILE Interpreted: Cecelia Billings MD on 03/06/2016 at 16:26 CT ABDOMEN AND PELVIS WITHOUT CONTRAST 03/06 1. No acute intra-abdominal findings. Normal appendix. 2. Aortic atherosclerosis. Dictated by: Jeanine Pantoja M.D. on 03/06/2016 at 15:54 12-lead ECG Personally/concurrently reviewed by Esequiel 03/08 . Sinus rhythm rate 89, QTC 558 ms confirmed by QT interval correction calculation * Low voltage, extremity leads . Abnormal R-wave progression, early transition * Nonspecific repol abnormality, diffuse leads . Prolonged QT interval * No previous study for comparison Cardiac Echo Impressions Echo 10/11/14 Interpretation Summary The left ventricle is normal in size, wall thickness, and systolic function without any focal wall motion abnormalities. The ejection fraction is estimated to be 55-60%. The interatrial septum is intact with no evidence for an atrial septal defect. Injection of contrast documented no interatrial shunt. There is no obvious cardiac source of embolus noted on this transthoracic echocardiogram. Follow-up with a DINO is suggested if cardiac source is still suspected. Dictated by Jessi Additional Diagnostics PICC line inserted 03/06 Assessment & Plan 65 y/o male with Seizures, Parkinson's, presenting to the [facility] emergency department via EMS due to altered mental status. Patient's Depakote level was low 02/26, his neurologist called his pharmacy and found it. At least Cogentin had not been filled since September 2015 so there is a question of compliance. Patient had prolonged seizures and was loaded with fosphenytoin 03/07 transferred to ICU and remained stable overnight was seen by Dr. Frazier his neurologist and cleared for transfer out of ICU. All meds are being resumed. Would be good if social work could make arrangements so that we could have somebody visiting this patient to verify medication compliance. Prolonged QT-pharmacy please review medications will need to be careful about this. Since they have been no arrhythmias and this seems to be chronic I am not going to continue monitoring this patient on telemetry. Acute Encephalopathy. - Likely from post ictal state from seizure episodes. - No evidence of infections including a normal urinalysis. CT head showed no bleeding or Stroke 03/08. Neurologically the patient been stable overnight and his neurologist Dr. Frazier tells me he is at his baseline level. 02/28 Seizure disorder with active and acute seizure- Likely due to non compliance with medications. Patient may need help with medications administration, will need delinquency prevention social worker look into this - continue seizure precaution with PRN Lorazepam for seizure episodes. Fosphenytoin 2gram loaded 03/07 no further seizures.Valproic acid levels from low at 37 Parkinson's Disease- Previously on Sinemet, Benztropine, primidone, Trihexyphenidyl 2 mg tid Schizophrenia. Chronic- presumed stable without any hallucinations reported on admission Prophylaxis-none indicated patient is ambulatory and does not need anything GI Disposition-full code from home Patient transferring out of the ICU back to the floor for observation, social work to make arrangements so patient can have more supervision of medication compliance, probable discharge home 03/09 or 03/10 depending on what arrangements can be made and whether there are any further events. Medically complex patient I am meeting for the first time 03/08 transferring out of ICU status after which could be argue was status epilepticus 03/07. I was not present therefore I cannot verify. VTE Mechanical Devices: Intermittant Pneumatic CD Resuscitation Status: CPR: Attempt Resuscitation Marlon Iraheta MD Mar 08, 2016 08:11
--- NOTE | 2016-03-08 09:59 | NUR ---
Case Management: IMM given and explained to pt at 09:45. Tasha OREILLY RN
--- NOTE | 2016-03-08 12:00 | NUR ---
Social Work: Initial Assessment Late Entry from 03/07/16 Data & Assessment: EMR Reviewed. See Initial Assessment. Patient was transferred to ICU due to seizure before this SW was able to meet him. SW spoke with patient's mother, Shalini Solorio [phone], via phone and completed assessment with her. Patient's PCP is listed as Dayne Ayala but patient mother reported that he is no longer the patient's physician. Patient's mother was unable to recall the patient's physician's name. Patient insurance is [employer]. Patient's does not have VA or LTC benefits. Patient mother states that patient lives at [facility] and pays $500 a month. Patient mother can not recall if the patient has been to a SNF or if he has had HH in the past. Patient's mother reports that he does not have any DME and patient is independent with ADL's at baseline. Patient's mother states that she does not want him to return because he leaves there alone when he wants and she feels that is unsafe because the patient may have a seizure. Patient mother stated that she did not have anywhere for the patient to go because she live in a shelter facility her self. EMMANUELLE notified patient's mother that [employer] would be contacted to apply for Medicaid for the patient and once that is complete the patient could apply for MIN. It is likely that the patient will discharge back to [facility] with HH (if the facility will allow HH). SW will continue to follow. Plan:It is likely that the patient will discharge back to [facility] with HH (if the facility will allow HH to come in). SW will continue to follow. Gary Marin LMSW, DENISE Addendum: 03/08/16 at 1219 by GARY AMATO Amended: Links added.
--- NOTE | 2016-03-08 12:02 | NUR ---
Neuros... Pt remains stable and no seizure activity noted. Is oriented and appropriate in conversation. Seen by MD and has been made PCC status.
--- NOTE | 2016-03-08 14:57 | CONS ---
[address] [address] CONSULTATION REPORT PATIENT: FLAQUITO BIGGS : 1955 MR#: [id number] ADMIT: 03/06/2016 JOB ID: [id number] DATE OF SERVICE: 03/07/2016 NEUROLOGY CONSULTATION: REQUESTING PHYSICIAN: Willi De Los Santos MD CHIEF COMPLAINT: Seizure. HISTORY OF PRESENT ILLNESS: The patient is a pleasant 60-year-old gentleman with multiple medical problems including tardive dyskinesias followed by me as an outpatient. Reportedly has noted an increasing frequency of spells thought to be secondary to tardive dyskinesia who was originally going to see me today, however ended up going to the emergency department due to altered mental status. He lives at a halfway. Roommate found him awake but unresponsive with reportedly seizure-like activity staring and mumbling in bed. According to EMS, he was able to open his eyes but was not tracking and was muttering word salad. Vital signs appeared within normal limits. Blood sugar was 115. He also has a history of quite prominent drug-induced parkinsonism with prominent dyskinesias, for which benztropine and Artane were started, however based on above information, it is not clear that he has been taking these medications. Ropinirole was tried and was found to be ineffective. Pramipexole was minimally effective. There have been multiple changes to his medications over the past two years. He has a history of lifelong neuroleptics use and due to the severity of his psychiatric disease, has continued on these medications up until recently. He did try Artane in the past. Reportedly it made him feel more off balance at night and more shaky during the day. However, as he had been started on benztropine and noted that it did not appear to be as effective, we did discuss in my last visit with him on November 15, 2015 switching from benztropine to Artane. He reported dry mouth which he attributed to benztropine. He was concerned about Artane due to a history of dizziness and a feeling of imbalance. We had discussed stopping benztropine and starting Artane. It appears, at this point, that he has not been taking either of those medications at least based on what I can find out from the pharmacy. My concern is that his dyskinesias likely have worsened secondary to stopping both of these anticholinergic agents. He would benefit from restarting benztropine as Artane may be associated with lowering seizure threshold and in the past was associated with dizziness. I would at least consider trying the benztropine again and treating the symptoms of dry mouth as needed with Biotene or Zylimelts. It is unclear if these events are truly seizures or if they are severe episodes of dyskinesias. However, based on review of the chart, it does appear that he did have a generalized tonic-clonic seizure that lasted for over 1 minute which prompted the use of lorazepam as well as a loading dose of fosphenytoin to break suspected status epilepticus. Dyskinesias are characterized by frequent nonpurposeful movements. However, dyskinesias are not associated with generalized tonic-clonic movements which would be suspicious for a possible seizure. It does appear that the Depakote which was started primarily for mood control may have been masking an underlying ictal propensity, and in this case, I would consider checking a trough level and increasing Depakote as needed to a therapeutic level for treatment of suspected seizure disorder. At some point an EEG may also be helpful. ALLERGIES: To HALOPERIDOL and DIAZEPAM. Those allergies were extrapyramidal symptoms and sedation respectively. MEDICATIONS: His scheduled medications have included: 1. Depakote 250 mg b.i.d. 2. Lorazepam 0.5 mg, taking 0.5-1 tablet by oral route up to twice in one day. 3. Melatonin 3 mg at bedtime. 4. Mirtazapine 7.5 mg at bedtime. 5. Propranolol 20 mg daily. 6. Ranitidine 150 mg b.i.d. 7. Benztropine 1 mg b.i.d. 8. Trihexyphenidyl 2 mg 3 times daily. I did contact his pharmacy, [facility], in [place] and reportedly he had not filled his benztropine since September and he has not been taking Artane according to the pharmacy. He was noted to have a generalized tonic-clonic seizure and was given lorazepam as well as loaded with IV fosphenytoin. The seizure was noted to last for over 1 minute. Valproic acid levels from February 27, 2016 were 37 which is low. He was given a total of 2 g of IV fosphenytoin which infused at a maximum rate of 50 mg/hour. He does appear to be mildly sedated. However, no seizure activity. LABORATORY STUDIES: WBC 10.8, hemoglobin 14.1, hematocrit 41.4, platelets of 253. Chemistries: Sodium 140, potassium 4.1, chloride 109, bicarbonate 18, BUN 11, creatinine 0.76 and glucose 116. LFTs were within normal limits. Total protein was 6.0. Coags: PT was 10.6, INR was 0.99. Urinalysis: Occasional urine epithelial cells, otherwise completely negative. REVIEW OF SYSTEMS: A complete review of systems could not be performed due to the patient's mental status. He does appears to be postictal and drowsy. PAST MEDICAL HISTORY: Remarkable for: 1. Schizoaffective disorder. 2. Bipolar disorder. 3. Posttraumatic stress disorder. 4. Chronic obstructive pulmonary disease. 5. Hypertension. 6. Neuroleptic-induced parkinsonism 7. Chronic sinusitis 8. Tardive dyskinesia. 9. History of neck pain. 10. Dermatitis. 11. Insomnia. 12. Restless legs syndrome. 13. Obstructive sleep apnea. 14. Hypertension. 15. Xerostomia. 16. Hyperlipidemia. PAST SURGICAL HISTORY: 1. He underwent a laminectomy on his lower back. 2. Excision of skin cancer. 3. He also underwent a reported neck surgery. 4. He does have a history of urinary urgency. FAMILY HISTORY: Remarkable for periodic leg movement disorder in his father, a brother with alcoholism, a history of congestive heart failure in his father. His mother has hypertension. SOCIAL HISTORY: He lives in a halfway. No tobacco, alcohol or drugs. He is disabled secondary to schizoaffective disorder. His primary care provider is Dr. Dayne Ayala. He also reports a history of an allergy to TEMAZEPAM. Reportedly it worsened his tremors. PHYSICAL EXAMINATION: Temperature 36.5, pulse 72, respiratory rate 18, blood pressure 100/74, pulse oximetry 97% on 4 L nasal cannula oxygen. In general, he does appear sedated. However, opens his eyes to command and does follow some simple commands. Pupils are equal, round and reactive. Extraocular movements are intact. Negative Kernig. Negative Brudzinski. Neck is supple. Chest is clear to auscultation. Heart: Regular rate and rhythm. Abdomen: Soft, nondistended, nontender. Extremities: No cyanosis, clubbing or edema. Deep tendon reflexes were symmetrical. Muscle strength: He is moving all four limbs spontaneously. Sensation: He withdraws to noxious stimuli. Face appeared symmetrical. Coordination could not be assessed due to sedation. Gait could not be assessed due to sedation. IMPRESSION: 1. Generalized tonic-clonic seizure. 2. Severe tardive dyskinesia. 3. Drug-induced parkinsonism secondary to longstanding history of psychotropic drugs used for treatment of schizoaffective disorder, dyskinesias and restless leg syndrome. RECOMMENDATIONS: 1. Restart benztropine. 2. Check trough level of Depakote, and if Depakote level is low, consider increasing Depakote dose by 250 mg in the evening and rechecking a level in the morning. Seizure precautions. Work-up for new onset seizure. I recommend obtaining an imaging study such as a computed tomography scan of his head without contrast to exclude any other etiology for a generalized tonic-clonic seizure including cortical processes. Based on the labwork and physical examination (negative Kernig and negative Brudzinski), an infectious etiology appears unlikely. 3. I would also restart all his medications with the exception of any sedating medications such as melatonin or mirtazapine. Lorazepam to be given as needed for seizure IV. 4. Continue close neurologic monitoring and seizure precautions. Thank you, again, Dr. De Los Santos, for allowing me to participate in the care of this patient. Please feel free to contact me with any questions or concerns. DOLORESD
--- NOTE | 2016-03-08 16:27 | NUR ---
Seizure.. Pt while taking a nap noted to have seizure like jerking, unresponsive to voice and eyes were deviated slightly down. Pt turned to side, airway and ambu bag at bedside. Given 1 mg of IV Ativan and jerking slowed down. Total seizure time lasted around 10 minutes and pt then awakened to voice and was tracking to name and answering questions appropriately. Dr Iraheta and Karin notified. Pt will received stat IV depacote. Of note.. the seizure today was similiar to seizure noted yesterday, occurring after pt had been amb in [place] with PT. Right Of Way Agent has been in contact with pt's mother re his status and concerns re D/C.
--- NOTE | 2016-03-08 16:30 | NUR ---
Social Work: Continued Discharge Planning D: Pt's EMR reviewed; pt had another seizure today and remains in PCC status. Pt was ambulating with physical therapy and was able to walk approximately 400 feet however is impulsive and very unsteady. JUSTICE PROFESSOR discussed this with PT who agrees pt is not an candidate for skilled rehab however requires more assistance and supervision than he currently receives at home. Pt lives at the [facility], a [facility] in [place]. Pt's primary insurance is [employer]. It does not appear pt has active DSHS. JUSTICE PROFESSOR spoke with pt's mother to discuss possibly applying for DSHS with the pt. She is in agreement with this and would like [facility] to meet with the pt at bedside on Thursday. Pt's mother states that she cannot come to the hospital directly as she is blind and cannot drive. She would like [facility] to call her while they are completing assessment if additional information is needed. JUSTICE PROFESSOR left message for [facility] requesting that they screen pt for Medicaid and assist him with an application. If pt qualifies for Medicaid, an expedited MIN referral would be helpful to the pt. A: Pt who lives in a [facility] in [place]. P: Evolving; JUSTICE PROFESSOR to follow up with [facility] on Thursday to confirm they can see the pt. Pt to likely have to discharge back to the [facility] unless pt and/or mother have the ability to pay privately for a higher level of care. RAMON Morris
[2016-03-08] MEDS ORDERED: levETIRAcetam 500 mg/100 mL NS IV ONE ×2 (17:35)
[2016-03-09 03:22] VITALS: BP 116/85; PULSE 65; RESP 21; O2SAT 93
[2016-03-09 05:33] LABS: Mean Corpuscular Hemoglobin 31.1 pg (27.0-35.0); Mean Corpuscular Volume 92.7 fL (81-100)
[2016-03-09 08:00] VITALS: BP 154/98; PULSE 74; PULSE 76; RESP 16; O2SAT 97
[2016-03-09] MEDS: Divalproex (QD) 250 mg ER24 Tablet PO SCH (08:17)
[2016-03-09 09:59] VITALS: PULSE 72
[2016-03-09 13:04] VITALS: BP 154/91; PULSE 79; RESP 20; O2SAT 96
--- NOTE | 2016-03-09 15:05 | NUR ---
Mentation/Neuros.. pt remains oriented and appropriate. Is somewhat impulsive when needing to void. Was able to amb to BR with assist for a shower. Remains unsteady on feet and high falls risk. Bed alarm is engaged. Has had no seizure activity this shift. Mother updated over phone.
[2016-03-09] MEDS: Sodium Chloride LOK Flush 10 mL Syringe IVFLUSH PRN (15:22)
[2016-03-09 15:31] VITALS: BP 120/84; PULSE 75; RESP 13; O2SAT 96
--- NOTE | 2016-03-09 17:18 | NUR ---
Transfer.. Pt has been changed to floor care status. Will tx to 3006 with belongings. Report called to Kailee LEE.
--- NOTE | 2016-03-09 17:41 | NUR ---
[place] [facility] [place] [facility] Pt arrived to unit at 1730. Pt situated in room. Dinner ordered. Pt appears comfortable. Bed in low position, call light in reach, will continue to monitor.
[2016-03-09 20:23] VITALS: BP 138/84; PULSE 75; RESP 18; O2SAT 96
[2016-03-10 04:25] VITALS: BP 134/92; PULSE 70; RESP 18; O2SAT 96
--- NOTE | 2016-03-10 04:38 | NUR ---
Seizure Pt had 2-3minutes of jerking seizure. Pt positioned on his side, Ambu bag and suction equipment ready ready at bedside. Ativan 1mg administered IV. Pt is conscious but not able to speak, seizure calmed down after 2-3 minutes. When asked if he remembers that he just had a seizure, pt states nods. VS taken and stable, MD notified and no new orders. Will continue to monitor.
[2016-03-10 05:10] LABS: BASOPHILS % (AUTO) 0.4 % (0-3); EOSINOPHILS % (AUTO) 6.1 % (0-5); MONOCYTES % (AUTO) 17.3 % (4-12); Mean Corpuscular Hemoglobin 31.1 pg (27.0-35.0); Mean Corpuscular Volume 91.5 fL (81-100); NEUTROPHILS % (AUTO) 46.6 % (40-74); Platelet Count 237 bil/L (150-400)
[2016-03-10] MEDS: Sodium Chloride LOK Flush 10 mL Syringe IVFLUSH PRN (08:09)
--- NOTE | 2016-03-10 09:02 | NUR ---
NESTOR signed. RAMON Corral
--- NOTE | 2016-03-10 11:11 | DRSVH ---
CORRECTED PATIENT FIRST NAME SPELLING AND MR NUMBER ON 03/10/16 PROCEDURE: CT BRAIN WITHOUT CONTRAST ([id number]) INDICATIONS: seizure, prolonged postictal state TECHNIQUE: Noncontrast 4.5 mm thick angled axial sections acquired from the foramen magnum to the vertex, with c oronal reformats. COMPARISON: None. FINDINGS: Image quality: Excellent. CSF spaces: Basal cisterns are patent. No extra-axial fluid collections. The ventricles are symmet betty in size and shape. Brain: No intracranial bleeds or masses. There is cerebral volume loss for age, with resultant vent ricular and sulcal prominence. There are periventricular and deep white matter chronic small vessel ischemic changes. There is intracranial internal carotid artery atherosclerosis. Skull and face: Calvarium and visualized facial bones appear intact, without suspicious lesions. Sinuses: Mastoids are clear. There is moderate bilateral maxillary and ethmoid air cell mucosal thick ening. Small amount of bilateral sphenoid sinus fluid is present. Frontal sinuses are clear. IMPRESSION: 1. No acute intracranial abnormality. 2. Sinus disease. Dictated by: Benson Plummer M.D. on 03/06/2016 at 15:43 Approved by: Benson Plummer M.D. on 03/06/2016 at 15:44
[2016-03-10 13:59] VITALS: BP 150/97; PULSE 72; RESP 18; O2SAT 96
--- NOTE | 2016-03-10 15:39 | PCM.PNMED ---
Subjective Date of Service Mar 10, 2016 Brian Sexton was sitting comfortably in bed this morning. He denies any symptoms and has no complaints. He is tolerating his soft diet well. Reports he feels much better and has not had a seizure episode. Exam Vital Signs Vital Sign - Last Date Time Temp Pulse Resp B/P Pulse Ox O2 Delivery O2 Flow Rate FiO2 03/10/16 04:25 36.7 70 18 134/92 96 Room Air 03/08/16 04:00 2.00 Intake and Output 03/09/16 03/09/16 03/10/16 Cumulative From/Thru 15:00 23:00 07:00 03/06/16 15:18 - 03/10/16 06:21 Intake Total 650 ml 200 ml 6318 ml Output Total 1550 ml 925 ml 95075 ml Balance -900 ml -725 ml -4722 ml Intake Oral 650 ml 200 ml 3510 ml IV Total 2808 ml Output Urine Total 1550 ml 925 ml 46138 ml # Voids 1 1 # Bowel Movements 1 Exam General: Alert, Oriented X3, Cooperative, No acute Distress. Eyes: PERRLA, Scleral Anicteric Mouth: Mouth Normal, Mucous Membranes Moist/[place]. Repetitive involuntary motion of tongue Neck: Supple, no Thyromegaly, trachea central. Chest & Lungs: CTAB, No adventitious breath sounds, no crackles, no wheeze Cardiovascular: Normal S1, Normal S2, No Murmurs/Rubs/Gallops, Regular Rate/ Rhythm, (No JVD, no peripheral edema) Abdomen: Soft, Non-tender, Non-distended, Normoactive bowel tones. Musculoskeletal: Unremarkable. Normal range of motion, no swollen or erythematous joints Extremities: No edema, no cyanosis, no clubbing. Skin: No rashes. Warm and dry, no erythematous areas Neurological: Grossly neurologically intact, has generalized weakness, Normal Speech, Sensation Intact IVs and Medications Medications Reviewed: Medications were reviewed in detail Lab and Diagnostics Result Diagram: 03/10/1644903/10/16 045 X-Rays, CTs and MRIs CT head no contrast 03/07 IMPRESSION: No acute intracranial abnormality. Sinus disease. Dictated by: Benson Plummer M.D. on 03/07/2016 at 20:12 X-RAY CHEST ONE VIEW, PORTABLE 03/06 IMPRESSION: No acute cardiopulmonary disease. Dictated by: Markos Joseph RRA Interpreted: Cecelia Billings MD on 03/06/2016 at 16:26 CT ABDOMEN AND PELVIS WITHOUT CONTRAST 03/06 1. No acute intra-abdominal findings. Normal appendix. 2. Aortic atherosclerosis. Dictated by: Jeanine Pantoja M.D. on 03/06/2016 at 15:54 12-lead ECG Personally/concurrently reviewed by Esequiel 03/08 . Sinus rhythm rate 89, QTC 558 ms confirmed by QT interval correction calculation * Low voltage, extremity leads . Abnormal R-wave progression, early transition * Nonspecific repol abnormality, diffuse leads . Prolonged QT interval * No previous study for comparison Cardiac Echo Impressions Echo 10/11/14 Interpretation Summary The left ventricle is normal in size, wall thickness, and systolic function without any focal wall motion abnormalities. The ejection fraction is estimated to be 55-60%. The interatrial septum is intact with no evidence for an atrial septal defect. Injection of contrast documented no interatrial shunt. There is no obvious cardiac source of embolus noted on this transthoracic echocardiogram. Follow-up with a DINO is suggested if cardiac source is still suspected. Dictated by Jessi Additional Diagnostics PICC line inserted 03/06 Assessment & Plan Darshan Horowitz is a 65 y/o male with Seizures, Parkinson's, presenting to the [facility] emergency department via EMS due to altered mental status. Work up so far including Imaging and labs showed cause is still unclear. Admitted for close monitoring of mental status tonight Acute Encephalopathy. Present on admission. ongoing - Likely from post ictal state from seizure episodes. Possibly also due to sedation from Ativan initially. - No evidence of infections including a normal urinalysis. - CT head showed no bleeding or Stroke - Stepped down to [facility] on 03/09 - Advancing diet as tolerated - Improved, patient with normal mentation today Seizure disorder with active and acute seizure, POA - Likely due to non compliance with medications. Patient may need help with medications administration, will need social insurance adviser look into this - continue seizure precaution with PRN Lorazepam for seizure episodes - Neurology consulted this morning. will f/u w/ further recs by Dr. Frazier - 2gram of IV Fosphenytoin at 50mg/hr already ordered. Further antiepileptic medication per neurology recs - Valproic acid levels from 02/27/16 low at 37. Levels were therapeutic on 03/10. - Consider removing seizure threshold lowering medications Prolonged QT interval, POA -Avoid Qt prolonging medications if possible Parkinson's Disease, POA - Previously on Sinemet, Benztropine and primidone. - Currently on Trihexyphenidyl 2 mg tid Schizophrenia. Chronic, POA - presumed stable without any hallucinations reported on admission - Consider outpatient Psych follow up Pain Evaluation: Adequate Pain Control VTE Mechanical Devices: Intermittant Pneumatic CD Resuscitation Status: CPR: Attempt Resuscitation Time spent 25 minutes Attending Statement I have seen and evaluated patient at bedside in addition to directly supervised care provided by resident physician. I agree with above documentation. Asad Bardales DO Mar 10, 2016 07:46 Darius Caro DO Mar 11, 2016 08:19 - Consider removing seizure threshold lowering medications Prolonged QT interval, POA -Avoid Qt prolonging medications if possible Parkinson's Disease, POA - Previously on Sinemet, Benztropine and primidone. - Currently on Trihexyphenidyl 2 mg tid Schizophrenia. Chronic, POA - presumed stable without any hallucinations reported on admission - Consider outpatient Psych follow up Pain Evaluation: Adequate Pain Control VTE Mechanical Devices: Intermittant Pneumatic CD Resuscitation Status: CPR: Attempt Resuscitation Asad Bardales DO Mar 10, 2016 07:46
--- NOTE | 2016-03-10 15:56 | NUR ---
Mentation and Activity Confusion this AM. Reports that he "lost the night " and couldn't remember the day. Frequent reorientation. Mostly forgetful. Quite busy this afternoon with walking and searching belongings. No seizure activity noted. Seizure pads in place at this time.
--- NOTE | 2016-03-10 16:08 | NUR ---
Social Work-continued d/c planning: Data:EMR reviewed. Pt is on day 4 of hospitalization for seizures per H&P. Pt is several days out from discharge. SW followed up with [facility] to see if they had seen pt today. No noted dictated. SW called [facility] and left message requesting a return call to discuss pt. PT continues to recommend [facility] With and 01/09 care. Pt resides at [facility]. SW received call from pt's mother Toñito to discuss, SW attempted to call her back, no answer. SW to follow up again tomorrow. Assessment:Pt who is independent at baseline. Plan:SW to follow up with pt and mother regarding options. SW has left message with [facility] to determine if they can see pt to complete TRANG application. SW will continue to follow. RAMON Corral
[2016-03-10 20:43] VITALS: BP 105/65; PULSE 75; RESP 18; O2SAT 95
[2016-03-11 04:31] LABS: BASOPHILS % (AUTO) 0.3 % (0-3); EOSINOPHILS % (AUTO) 3.2 % (0-5); MONOCYTES % (AUTO) 15.7 % (4-12); Mean Corpuscular Hemoglobin 31.3 pg (27.0-35.0); Mean Corpuscular Volume 91.7 fL (81-100); NEUTROPHILS % (AUTO) 57.3 % (40-74); Platelet Count 209 bil/L (150-400)
--- NOTE | 2016-03-11 04:38 | NUR ---
Lack of Seizure Activity Pt resting throughout shift, no apparent seizure activity this HS. VSS, no telemetry; pt using urinal and BSC for output.
[2016-03-11 05:22] VITALS: BP 113/77; PULSE 75; RESP 20; O2SAT 98
[2016-03-11 10:19] VITALS: BP 136/83; PULSE 71; RESP 18; O2SAT 98
[2016-03-11 10:58] LABS: APPEARANCE,URINE HAZY (CLEAR,HAZY); COLOR,URINE STRAW (YELLOW); OCCULT BLOOD,URINE NEGATIVE (NEGATIVE); UROBILINOGEN,URINE NORMAL (NORMAL)
--- NOTE | 2016-03-11 11:57 | NUR ---
Ambulate w/Nsg; PT 2x/week Pt released to ambulate w/nsg w/FWW SBA 2-3x/day as pt tolerates. PT will cont to see 2x/week to progress AD and to assess Tinetti as per outcomes.
--- NOTE | 2016-03-11 14:16 | PCM.PNMED ---
Subjective Date of Service Mar 11, 2016 Subjective Darshan is doing well this morning. He is eating breakfast during this exam. He reports he slept well last night. He feels much better overall but does report some decrease in urine output and pain with urination. Denies any flank pain or fevers. Exam Vital Signs Vital Sign - Last Date Time Temp Pulse Resp B/P Pulse Ox O2 Delivery O2 Flow Rate FiO2 03/11/16 05:22 36.9 75 20 113/77 98 Room Air 03/08/16 04:00 2.00 Intake and Output 03/10/16 03/10/16 03/11/16 Cumulative From/Thru 15:00 23:00 07:00 03/06/16 15:18 - 03/11/16 06:49 Intake Total 1522 ml 200 ml 8040 ml Output Total 935 ml 475 ml 74846 ml Balance 587 ml -275 ml -4410 ml Intake Oral 1522 ml 200 ml 5232 ml IV Total 2808 ml Output Urine Total 935 ml 475 ml 94174 ml # Voids 1 1 3 # Bowel Movements 1 2 Exam General: Alert, Oriented X3, Cooperative, No acute Distress. Eyes: PERRLA, Scleral Anicteric Mouth: Mouth Normal, Mucous Membranes Moist/[place]. Repetitive involuntary motion of tongue Chest & Lungs: CTAB, No adventitious breath sounds, no crackles, no wheeze Cardiovascular: RRR, no m/r/c noted Abdomen: Soft, Non-tender, Non-distended, Normoactive bowel tones. Musculoskeletal: No flank pain Extremities: No edema, no cyanosis, no clubbing. Skin: No rashes. Warm and dry, no erythematous areas Neurological: Grossly neurologically intact, has generalized weakness, Normal Speech, Sensation Intact IVs and Medications Medications Reviewed: Medications were reviewed in detail Lab and Diagnostics Result Diagram: 03/11/1641403/11/16414 X-Rays, CTs and MRIs CT head no contrast 03/07 IMPRESSION: No acute intracranial abnormality. Sinus disease. Dictated by: Benson Plummer M.D. on 03/07/2016 at 20:12 X-RAY CHEST ONE VIEW, PORTABLE 03/06 IMPRESSION: No acute cardiopulmonary disease. Dictated by: Markos Joseph RRA Interpreted: Cecelia Billings MD on 03/06/2016 at 16:26 CT ABDOMEN AND PELVIS WITHOUT CONTRAST 03/06 1. No acute intra-abdominal findings. Normal appendix. 2. Aortic atherosclerosis. Dictated by: Jeanine Pantoja M.D. on 03/06/2016 at 15:54 12-lead ECG Personally/concurrently reviewed by Esequiel 03/08 . Sinus rhythm rate 89, QTC 558 ms confirmed by QT interval correction calculation * Low voltage, extremity leads . Abnormal R-wave progression, early transition * Nonspecific repol abnormality, diffuse leads . Prolonged QT interval * No previous study for comparison Cardiac Echo Impressions Echo 10/11/14 Interpretation Summary The left ventricle is normal in size, wall thickness, and systolic function without any focal wall motion abnormalities. The ejection fraction is estimated to be 55-60%. The interatrial septum is intact with no evidence for an atrial septal defect. Injection of contrast documented no interatrial shunt. There is no obvious cardiac source of embolus noted on this transthoracic echocardiogram. Follow-up with a DINO is suggested if cardiac source is still suspected. Dictated by Jessi Additional Diagnostics PICC line inserted 03/06 Assessment & Plan Darshan Horowitz is a 65 y/o male with Seizures, Parkinson's, presenting to the [facility] emergency department via EMS due to altered mental status. Work up so far including Imaging and labs showed cause is still unclear. Admitted for close monitoring of mental status tonight Acute Encephalopathy. Present on admission. ongoing - Likely from post ictal state from seizure episodes. Possibly also due to sedation from Ativan initially. - No evidence of infections including a normal urinalysis. - CT head showed no bleeding or Stroke - Ste[place] [facility] [place] - Advancing diet as tolerated - Improved, patient with normal mentation today Seizure disorder with active and acute seizure, POA - Likely due to non compliance with medications. Patient may need help with medications administration, will need director social welfare look into this - continue seizure precaution with PRN Lorazepam for seizure episodes - Neurology consulted this morning. will f/u w/ further recs by Dr. Frazier - 2gram of IV Fosphenytoin at 50mg/hr already ordered. Further antiepileptic medication per neurology recs - Valproic acid levels from 02/27/16 low at 37. Levels were therapeutic on 03/10. Will check another Valproic acid level in the AM. Will decrease Depakote to BID per Neurology recs. - Consider removing seizure threshold lowering medications - Mirtazapine d/c. Reports of Dysuria, acute Will obtain UA for further analysis. Prolonged QT interval, POA -Avoid Qt prolonging medications if possible Parkinson's Disease, POA - Previously on Sinemet, Benztropine and primidone. - Currently on Trihexyphenidyl 2 mg tid Schizophrenia. Chronic, POA - presumed stable without any hallucinations reported on admission - Consider outpatient Psych follow up Dispo: Likely discharge tomorrow if stable. Pain Evaluation: Adequate Pain Control VTE Mechanical Devices: Intermittant Pneumatic CD Resuscitation Status: CPR: Attempt Resuscitation Time spent 20 minutes Attending Statement I have seen and evaluated patient at bedside in addition to directly supervising care provided by resident physician. I agree with above documentation. Asad Bardales DO Mar 11, 2016 07:41 Darius Caro DO Mar 11, 2016 14:53
[2016-03-11 14:34] VITALS: BP 114/74; PULSE 70; RESP 18; O2SAT 94
--- NOTE | 2016-03-11 15:34 | NUR ---
Neuro- Patient alert, oriented and appropriate. Complained of generalized discomfort "from head to toe", and Tylenol given. Patient ambulated in hallway with walker and physical. Tolerated activity well. Patient gets up urgently to go into the bathroom to void. Steady on feet. No seizure activity noted. Spoke with patient's mother today and she voiced concern about patient's discharge. patient financial services coordinator notified.
--- NOTE | 2016-03-11 15:44 | NUR ---
Social Work-readiness for discharge: Data:EMR reviewed. Pt is on day 5 of hospitalization for seizures per H&P. Pt is not medically stable, anticipate tomorrow. PT continues to recommend [facility] with HH services. SW explained to PT that pt does not live in [facility], [facility] Pt is ambulating 400ft with Fww. SW followed up with [facility] and spoke with them. They will be up to see pt later today to complete application. SW met with pt at bedside, SW role explained. Pt confirms that he has been living at [facility] and is not sure if he wants to return there. SW discussed alternative options, staying with mother, paying for hotel, etc and pt declined all these stating he would prefer to return back to [facility]. Pt does not qualify for SNF with insurance and pt is not able to pay privately for this. Pt informed SW that he feels like he is back at his normal baseline mentation and mobility. SW discussed use of Fww and pt is agreeable this. SW requested UR specialist work on getting pt a walker delivered from [employer]. SW checked in about pt's current mental delmy, pt denies any suicidal ideation or homicidal ideation. SW explained that prison care planning, completing expedited referral after [facility] sees pt can be started here, but pt will not be able to remain in the hospital for this to be completed. Pt is agreeable. SW received a call from pt's mother Shalini. SW explained the above information to mother. Pt's mother is upset that pt would [facility]. SW explained that pt is back at baseline and is able to ambulate. SW explained to mother that [facility] is going to see pt to complete Medicaid application and once this gets completed expedited referral can be sent in, but pt will not be able to remain in hospital until alternative housing found. SW offered options to pt's mother the same as pt and she declined all options. SW to follow up with mother again tomorrow. SW will continue to follow. Assessment:[facility] Plan:Pt to likely discharge back to [facility] when medically stable. UR specialist working on getting pt setup FWW. SW has requested that [facility] come and see pt to complete Medicaid application. Once this has been completed, expedited referral can be sent in. Pt does not qualify for SNF placement, pt unable to pay for alternative housing options. SW will continue to follow. RAMON Corral
--- NOTE | 2016-03-11 15:51 | NUR ---
Faxed walker script to [facility] per [facility], asked for this to be delivered to hospital and patient is being discharged tomorrow. Updated [facility]
--- NOTE | 2016-03-11 20:05 | CONS ---
[address] [address] CONSULTATION REPORT PATIENT: FLAQUITO BIGGS : 1955 MR#: [id number] ADMIT: 03/06/2016 JOB ID: [id number] DATE OF SERVICE: 03/11/2016 SUBJECTIVE: The patient reports that he had a brief seizure this morning. Last Depakote level was therapeutic at 65. In light of this, I do recommend addition of Keppra 500 mg b.i.d. Reviewed side effects which may include sedation and the risk of agitation and the development of anger with the patient in detail. He is agreeable to go ahead with adding Keppra. It appears at this point that he did have a breakthrough seizure this morning lasting less than 15 minutes. This is based on what he tells me. Recommend another valproic acid level tomorrow morning and I will order this. IMPRESSION: Generalized tonic-clonic seizures likely secondary to localization-related seizure disorder. 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 RECOMMENDATIONS: Continue benztropine. Check a trough level of Depakote. Add Keppra 500 mg twice daily. Continued close neurologic monitoring and seizure precautions. If there is no more seizure activity overnight and tomorrow morning, then agreeable to discharge back to home. May benefit from blister packs to assist with compliance. Will order labs for tomorrow morning. Thank you, Dr. Bardales, for allowing me to participate in the care of your patient. Please feel free to contact me with any questions or concerns.
[2016-03-11] MEDS: Divalproex DR 500 MG, Divalproex DR 250 MG PO SCH ×2 (20:09)
[2016-03-11] MEDS: Sodium Chloride LOK Flush 10 mL Syringe IVFLUSH PRN (20:10)
--- NOTE | 2016-03-11 20:20 | NUR ---
Activity Pt up to BR x2 with 1 per SBA using FWW. Pt has a steady gait and slight shuffle with ambulation. Urinal offered for usage, but the Pt took the urinal into the BR and used it in there. Denies shortness of breath, chest pain, and discomfort. The Pt tolerated the activity without distress or shortness of breath.
[2016-03-11 21:04] VITALS: BP 124/87; PULSE 86; RESP 18; O2SAT 98
[2016-03-11] MEDS: levETIRAcetam 500 mg Tablet PO SCH (22:46)
[2016-03-12 04:46] VITALS: BP 122/86; PULSE 87; RESP 18; O2SAT 98
[2016-03-12 06:34] LABS: BASOPHILS % (AUTO) 0.2 % (0-3); EOSINOPHILS % (AUTO) 1.5 % (0-5); MONOCYTES % (AUTO) 16.1 % (4-12); Mean Corpuscular Hemoglobin 31.6 pg (27.0-35.0); Mean Corpuscular Volume 90.9 fL (81-100); NEUTROPHILS % (AUTO) 65.4 % (40-74); Platelet Count 282 bil/L (150-400)
[2016-03-12] MEDS: levETIRAcetam 500 mg Tablet PO SCH ×2 (08:10→20:03)
[2016-03-12] MEDS: Divalproex DR 500 MG, Divalproex DR 250 MG PO SCH ×4 (08:11→20:03)
[2016-03-12 08:24] VITALS: BP 125/82; PULSE 88; RESP 18; O2SAT 97
--- NOTE | 2016-03-12 10:22 | NUR ---
NESTOR signed. RAMON Corral
--- NOTE | 2016-03-12 10:24 | PCM.PNMED ---
Subjective Date of Service Mar 12, 2016 Subjective Darshan has been seizure free for the past few days. His Depakote level is therapeutic. Denies any fevers, increased tremors, sob, or cp. He is complaining of increased dysuria. He states that this has been worsening since they removed his Watson. Denies any flank pain or incontinence. Exam Vital Signs Vital Sign - Last Date Time Temp Pulse Resp B/P Pulse Ox O2 Delivery O2 Flow Rate FiO2 03/12/16 04:46 36.3 87 18 122/86 98 Room Air 03/08/16 04:00 2.00 Intake and Output 03/11/16 03/11/16 03/12/16 Cumulative From/Thru 15:00 23:00 07:00 03/06/16 15:18 - 03/12/16 06:04 Intake Total 1652 ml 518 ml 71891 ml Output Total 1450 ml 775 ml 07449 ml Balance 202 ml -257 ml -4465 ml Intake Oral 1652 ml 518 ml 7402 ml IV Total 2808 ml Output Urine Total 1450 ml 775 ml 71439 ml # Voids 3 # Bowel Movements 0 2 Exam General: Alert, Oriented X3, Cooperative, No acute Distress. Eyes: PERRLA, Scleral Anicteric Mouth: Mouth Normal, Mucous Membranes Moist/[place]. Repetitive involuntary motion of tongue Chest & Lungs: CTAB, No adventitious breath sounds, no crackles, no wheeze Cardiovascular: RRR, no m/r/c noted Abdomen: Soft, Non-tender, Non-distended, Normoactive bowel tones Musculoskeletal: No flank pain Extremities: No edema, no cyanosis, no clubbing. Skin: No rashes. Warm and dry, no erythematous areas Neurological: Grossly neurologically intact, has generalized weakness, Normal Speech, Sensation Intact IVs and Medications Medications Reviewed: Medications were reviewed in detail Lab and Diagnostics Result Diagram: 03/12/16 0552 03/11/16 0415 X-Rays, CTs and MRIs CT head no contrast 03/07 IMPRESSION: No acute intracranial abnormality. Sinus disease. Dictated by: Benson Plummer M.D. on 03/07/2016 at 20:12 X-RAY CHEST ONE VIEW, PORTABLE 03/06 IMPRESSION: No acute cardiopulmonary disease. Dictated by: Markos Joseph RRA Interpreted: eCcelia Billings MD on 03/06/2016 at 16:26 CT ABDOMEN AND PELVIS WITHOUT CONTRAST 03/06 1. No acute intra-abdominal findings. Normal appendix. 2. Aortic atherosclerosis. Dictated by: Jeanine Pantoja M.D. on 03/06/2016 at 15:54 12-lead ECG Personally/concurrently reviewed by Esequiel 03/08 . Sinus rhythm rate 89, QTC 558 ms confirmed by QT interval correction calculation * Low voltage, extremity leads . Abnormal R-wave progression, early transition * Nonspecific repol abnormality, diffuse leads . Prolonged QT interval * No previous study for comparison Cardiac Echo Impressions Echo 10/11/14 Interpretation Summary The left ventricle is normal in size, wall thickness, and systolic function without any focal wall motion abnormalities. The ejection fraction is estimated to be 55-60%. The interatrial septum is intact with no evidence for an atrial septal defect. Injection of contrast documented no interatrial shunt. There is no obvious cardiac source of embolus noted on this transthoracic echocardiogram. Follow-up with a DINO is suggested if cardiac source is still suspected. Dictated by Jessi Additional Diagnostics PICC line inserted 03/06 Assessment & Plan Darshan Horowitz is a 65 y/o male with Seizures, Parkinson's, presenting to the [facility] emergency department via EMS due to altered mental status. Work up so far including Imaging and labs showed cause is still unclear. Admitted for close monitoring of mental status tonight Acute Encephalopathy. Present on admission. ongoing - Likely from post ictal state from seizure episodes. Possibly also due to sedation from Ativan initially. - No evidence of infections including a normal urinalysis. - CT head showed no bleeding or Stroke - Stepped down to [facility] [place] 03/09 - Advancing diet as tolerated - Improved, patient with normal mentation today Seizure disorder with active and acute seizure, POA - Likely due to non compliance with medications. Patient may need help with medications administration, will need social services manager look into this - continue seizure precaution with PRN Lorazepam for seizure episodes - Neurology consulted this morning. will f/u w/ further recs by Dr. Frazier - 2gram of IV Fosphenytoin at 50mg/hr already ordered. Further antiepileptic medication per neurology recs - Valproic acid levels from 02/27/16 low at 37. Levels were therapeutic on .. Will decrease Depakote to BID per Neurology recs. Depakote level 73 on 03/12. - Dr. Frazier also added on Keppra 500mg BID. - Consider removing seizure threshold lowering medications - Mirtazapine d/c. Likely UTI, acute, not POA Possibly related to Catheter usage early on in admission, also a complicated UTI in a male. Preliminary cultures suspicious for Enterococci Will initiate IV abx therapy today while we await sensitivities Prolonged QT interval, POA -Avoid Qt prolonging medications if possible Parkinson's Disease, POA - Previously on Sinemet, Benztropine and primidone. - Currently on Trihexyphenidyl 2 mg tid Schizophrenia. Chronic, POA - presumed stable without any hallucinations reported on admission - Consider outpatient Psych follow up Dispo: Likely discharge tomorrow if stable. Pain Evaluation: Adequate Pain Control VTE Mechanical Devices: Intermittant Pneumatic CD Resuscitation Status: CPR: Attempt Resuscitation Time spent 30 minutes Attending Statement I have seen and evaluated patient at bedside, in addition to directly supervising care provided by resident physician. I agree with above documentation. Asad Bardales DO Mar 12, 2016 06:54 Darius Caro DO Mar 13, 2016 07:29
[2016-03-12] MEDS ORDERED: Cefepime 2,000 mg/100 mL D5W Minibag Plus IV ONE ×2 (13:00)
[2016-03-12] MEDS ORDERED: 0.9% Sodium Chloride 250 ML ONE (13:56)
[2016-03-12 14:07] VITALS: BP 103/71; PULSE 80; RESP 16; O2SAT 97
--- NOTE | 2016-03-12 15:53 | NUR ---
Social Work-continued d/c planning: Data:EMR Reviewed. Pt is on day 6 of hospitalization for GH MCR per H&P. Pt is not medically stable, anticipate 1-2 more days. PT has cleared pt for home, ambulating 400ft SBA with Fww. UR specialist working on Fww through [employer]. SW spoke with [facility] who has completed Medicaid application, but pt has spenddown. SW spoke with [facility], who states they do not know how much his spenddown would be. Pt and mother would like to live in alternative living situation, but pt is agreeable to returning to [facility] at discharge. Alternative options have been discussed hotel,long term, etc and pt would prefer to return. SW has explained all of this to pt's mother and also explained pt's insurance will not cover SNF. SW faxed in Expedited referral to the state to assist with [employer] planning post hospitalization. Pt and mother have been updated. SW will continue to follow. Assessment:Pt who is independent at baseline. Plan:Pt to discharge back to [facility] when medically stable. UR specialist working on getting Fww through [employer] for pt. [facility] has completed Medicaid application, Expedited referral has been sent in for [employer] planning post hospitalization. Pt does not qualify for SNF placement, pt unable to pay for alternative housing options. SW will continue to follow. RAMON Corral
--- NOTE | 2016-03-12 19:23 | NUR ---
shift note Pleasant pt, at times impulsive and forgets to use the call light. Bed alarms on for safety. Gait observed to be unsteady. Reminder provided to use FWW. Pt had 1 delivered today. Up to chair for meals. Great appetite! 3 lumen PICC in ANITA patent. Pt tolerated IV abx well. Bed in low position, sz pads in place, call light in reach.
[2016-03-12 20:36] VITALS: BP 109/68; PULSE 89; RESP 18; O2SAT 96
[2016-03-13 04:47] VITALS: BP 118/77; PULSE 72; RESP 18; O2SAT 97
[2016-03-13 05:03] LABS: BASOPHILS % (AUTO) 0.3 % (0-3); MONOCYTES % (AUTO) 18.4 % (4-12); Mean Corpuscular Hemoglobin 31.2 pg (27.0-35.0); Mean Corpuscular Volume 92.1 fL (81-100); NEUTROPHILS % (AUTO) 63.6 % (40-74); Platelet Count 230 bil/L (150-400)
[2016-03-13] MEDS ORDERED: Cefepime Inj 2,000 MG in Dextrose 5% Minibag Plus 100 ML IV ONE (08:00)
[2016-03-13] MEDS: levETIRAcetam 500 mg Tablet PO SCH (08:14)
[2016-03-13] MEDS: Divalproex DR 500 MG, Divalproex DR 250 MG PO SCH ×2 (08:14)
[2016-03-13] MEDS ORDERED: Phenazopyridine 97.5 mg Tablet PO PRN (10:05)
[2016-03-13] MEDS ORDERED: KEP500TA PO (10:09)
--- NOTE | 2016-03-13 10:20 | PCM.DIMED ---
Discharge Instructions Date of Service Mar 13, 2016 Dates of Hospitalization Mar 06, 2016 at 20:18 Discharge Diagnosis Discharge Diagnosis Acute Encephalopathy. Present on admission. Resolved with improved seizure control. Seizure disorder with active and acute seizure, POA: Medication changes as follows on recommendation from Neurologist, Dayne Alvarez: - Depakote increased to 750mg by mouth, two times per day - Keppra *New medication* 500mg by mouth, two times per day. UTI, complicated - Treated with IV antibiotics initially in hospital, discharged with prescription for complete course of Macrobid 100mg by mouth two times daily for 5 days. - Pyridium also prescribed to treat pain with urination, likely associated with infection and recent Watson catheterization. Prolonged QT interval, POA -Avoid Qt prolonging medications when possible. Stable through hospital stay. Parkinson's Disease, POA - Currently on Trihexyphenidyl 2 mg tid. Also appears stable though resting tremor still present. Schizophrenia. Chronic, POA - Consider outpatient Psych follow up Diet No restrictions Activity No restrictions Call your provider Fever or Chills, Other (excessive sedation/solmnolence ) Patient Instructions Follow-up Provider: Dayne Ayala Follow-up with PCP in: 1 week Darius Caro DO Mar 13, 2016 10:20
[2016-03-13] MEDS ORDERED: DIVA250T2 PO (10:21)
--- NOTE | 2016-03-13 10:29 | PCM.DC.MED ---
Discharge Summary Date of Service Mar 13, 2016 Dates of Hospitalization Date of Hospital Admission Mar 06, 2016 at 20:18 Date of Discharge: Mar 13, 2016 Providers: Admitting Physician: Chavez Schultz MD Primary Care Physician: Dayne Ayala Attending Physician: Chavez Schultz MD Diagnosis at Time of Discharge Diagnosis at Time of Discharge Acute Encephalopathy. Present on admission. Resolved with improved seizure control. Seizure disorder with active and acute seizure, POA: Medication changes as follows on recommendation from Neurologist, Dayne Alvarez: - Depakote increased to 750mg by mouth, two times per day - Keppra *New medication* 500mg by mouth, two times per day. UTI, complicated - Treated with IV antibiotics initially in hospital, discharged with prescription for complete course of Macrobid 100mg by mouth two times daily for 5 days. - Pyridium also prescribed to treat pain with urination, likely associated with infection and recent Yin catheterization. Prolonged QT interval, POA -Avoid Qt prolonging medications when possible. Stable through hospital stay. Parkinson's Disease, POA - Currently on Trihexyphenidyl 2 mg tid. Also appears stable though resting tremor still present. Schizophrenia. Chronic, POA - Consider outpatient Psych follow up Consultations Neurology, Dr Dayne Frazier. Procedures XRay, CTs & MRIs CT head no contrast 03/07 IMPRESSION: No acute intracranial abnormality. Sinus disease. Dictated by: Benson Plummer M.D. on 03/07/2016 at 20:12 X-RAY CHEST ONE VIEW, PORTABLE 03/06 IMPRESSION: No acute cardiopulmonary disease. Dictated by: Markos Joseph RRA Interpreted: Cecelia Billings MD on 03/06/2016 at 16:26 CT ABDOMEN AND PELVIS WITHOUT CONTRAST 03/06 1. No acute intra-abdominal findings. Normal appendix. 2. Aortic atherosclerosis. Dictated by: Jeanine Pantoja M.D. on 03/06/2016 at 15:54 ECG 12 Lead Personally/concurrently reviewed by Esequiel 03/08 . Sinus rhythm rate 89, QTC 558 ms confirmed by QT interval correction calculation * Low voltage, extremity leads . Abnormal R-wave progression, early transition * Nonspecific repol abnormality, diffuse leads . Prolonged QT interval * No previous study for comparison Cardiac Echo Impression Echo 10/11/14 Interpretation Summary The left ventricle is normal in size, wall thickness, and systolic function without any focal wall motion abnormalities. The ejection fraction is estimated to be 55-60%. The interatrial septum is intact with no evidence for an atrial septal defect. Injection of contrast documented no interatrial shunt. There is no obvious cardiac source of embolus noted on this transthoracic echocardiogram. Follow-up with a DINO is suggested if cardiac source is still suspected. Dictated by [facility] PICC line inserted 03/06 Brief History As per admission H&P by Dr. Mesa, "Darshan Horowitz is a 65 y/o male with Seizures, Parkinson's, presenting to the [facility] emergency department via EMS due to altered mental status onset 0600 today. The patient lives at [facility] and his roommate found him awake but unresponsive with seizure-like activity mumbling in bed since 0600. According to EMS, he was able to open his eyes but is not tracking and is muttering "word salad". He appeared to be maintaining his airway. He was not given Ativan because he was intermittently responsive and medics were unsure if he was seizing. Notes from the Clinic showed patient had called Dr Frazier to express concern about having frequent seizures lately. It was documented that patient stated he has not been taking his medications regularly. "I've been neglecting them". He reports taking Lorazepam 0.5mg and Depakote ER 250mg 1/2 tab 2x/day. He states his symptoms are muscle tension in his stomach and chest and weird noises coming out of his mouth. When speaking with pt he began to make choking noises. I asked if he was starting a seizure, he said yes. 911 called. ? seizure last approximately 15+ minutes. [facility] voices at [id number].\\ Case discussed with Dr Crabtree, patient still not at baseline from hours of close monitoring in the ED, Workup so far unremarkable. CT head negative. CT Abdomen is negative as well. " Hospital Course Acute Encephalopathy. Present on admission. Resolved with improved seizure control. Given pt's baseline impairment due to numerous comorbidities and sedating medication for seizure, possible blister pack for medications or at least pill case would certainly be useful to assist with medication compliance and appropriate dosing. Seizure disorder with active and acute seizure, POA:It was thought part of relapse of seizure activity due to medication oncomplinace, however pt's Depakote levels remained low even following resumption, and pt additionally noted continued break through sezure activities for a few day following admission. This prompted further Medication changes as follows on recommendation from Neurologist, Dayne Alvarez: - Depakote increased to 750mg by mouth, two times per day - Keppra *New medication* 500mg by mouth, two times per day Which he was eventually discharged on. Plan to FU with PCP within 1 week of DC to review medication changes. And when possible with neurologist Dr Frazier. Ad this may be some time, more routine Depakote level testing by PCP is recommended should pt require further medication titration. Dr Frazier would be available by phone to provide further recommendation. . UTI, complicated - Noted due to rise in wbc count on day#3 of hospitalization. otherwise asymptomatic. Likely influenced by yin placement on admission. -Treated with IV antibiotics initially in hospital, discharged with prescription for complete course of Macrobid 100mg by mouth two times daily for 5 days. - Pyridium also prescribed to treat pain with urination, likely associated with infection and recent Yin catheterization. Prolonged QT interval, POA -Avoid Qt prolonging medications when possible. Stable through hospital stay. Parkinson's Disease, POA - Currently on Trihexyphenidyl 2 mg tid. Also appears stable though resting tremor still present. Schizophrenia. Chronic, POA - Consider outpatient Psych follow up Exam Vital Signs (Last) Date Time Temp Pulse Resp B/P Pulse Ox O2 Delivery O2 Flow Rate FiO2 03/13/16 04:47 37.1 72 18 118/77 97 Room Air 03/08/16 04:00 2.00 Test 03/06/16 15:06 03/06/16 16:26 03/06/16 17:14 03/07/16 10:45 Prothrombin Time 10.6sec (8.1-12.5) Prothromb Time International Ratio 0.99ratio Hold Urine Received (Received) Ammonia 42ug/dL (18-53) Hold Purple Top Tube Received (Received) Hold Blue Top Tube Received (Received) Hold Red Top Tube Received (Received) Hold [place] Top Tube Received (Received) Hold Hernandez Top Tube Received (Received) Test 03/08/16 03:20 03/10/16 04:50 03/11/16 10:28 03/12/16 05:00 Phosphorus Level 3.3mg/dL (2.5-4.9) Magnesium Level 1.9mg/dL (1.6-2.6) Total Bilirubin 0.2mg/dL (0.0-1.2) Aspartate Amino Transf (AST/SGOT) 22U/L (0-50) Alanine Aminotransferase (ALT/SGPT) 16U/L (0-44) Alkaline Phosphatase 78U/L (25-160) Total Protein 6.2g/dL (6.4-8.4) Albumin 3.5g/dL (3.4-5.0) Urine Color Straw (YELLOW) Urine Appearance Hazy (CLEAR,HAZY) Urine pH 7.0 (5.0-8.0) Urine Specific [place] 1.010 (1.003-1.035) Urine Protein Negativemg/dL (NEG,TRACE) Urine Glucose (UA) Negativemg/dL (NEGATIVE) Urine Ketones Negativemg/dL (NEGATIVE) Urine Occult Blood Negative (NEGATIVE) Urine Nitrite Negative (NEGATIVE) Urine Bilirubin Negative (NEGATIVE) Urine Urobilinogen Normalmg/dL (NORMAL) Urine Leukocyte Esterase Small (NEGATIVE) Urine RBC 0-2/hpf (0-2) Urine WBC 0-5/hpf (0-5) Urine Epithelial Cells Occasional/hpf (NONE-MOD) Urine Crystals None seen (NONE SEEN) Urine Bacteria Many/hpf (NONE-FEW) Urine Hyaline Casts None/lpf (NONE) Urine Granular Casts None seen (NONE SEEN) Urine Waxy Casts None seen (NONE SEEN) Urine Red Blood Cell Casts None seen (NONE SEEN) Urine White Blood Cell Casts None seen (NONE SEEN) Urine Mucus None seen (None Seen) Urine Trichomonas None seen (NONE SEEN) Urine Yeast None (NONE SEEN) Urinalysis Comment None Urine Culture Reflexed Indicated Valproic Acid (Depakene) Level 73ug/mL (50-125) Test 03/13/16 04:45 White Blood Count 16.3th/mm3 (3.8-10.1) Red Blood Count 4.55mil/mm3 (4.40-5.80) Hemoglobin 14.2g/dL (13.8-17.2) Hematocrit 41.9% (41.0-50.0) Mean Corpuscular Volume 92.1fL (81-100) Mean Corpuscular Hemoglobin 31.2pg (27.0-35.0) Mean Corpuscular Hemoglobin Concent 33.9% (32.0-37.0) Red Cell Distribution Width 14.4% (12.3-15.4) Platelet Count 230bil/L (150-400) Neutrophils (%) (Auto) 63.6% (40-74) Lymphocytes (%) (Auto) 15.2% (14-46) Monocytes (%) (Auto) 18.4% (4-12) Eosinophils (%) (Auto) 2.0% (0-5) Basophils (%) (Auto) 0.3% (0-3) Sodium Level 136mEq/L (134-144) Potassium Level 5.6mEq/L (3.5-5.2) Chloride Level 100mEq/L (97-108) Carbon Dioxide Level 24mmol/L (18-29) Blood Urea Nitrogen 11mg/dL (8-27) Creatinine 0.67mg/dL (0.76-1.27) Estimat Glomerular Filtration Rate 129mL/min (>59) Glucose Level 104mg/dL (60-99) Calcium Level 7.0mg/dL (8.5-10.1) General: Alert, Oriented X3, Cooperative, No Acute Distress Eyes: PERRLA Mouth: Mucous Membr Moist/[place], Other (chronic stable TD) Chest & Lungs: Chest Wall Normal Cardiovascular: Exam Unremarkable Abdomen: Non-tender Extremities: No cyanosis/clubbing/edma bilat Neurological: Grossly Neurologically Intact, Other (mild stable resting tremor of B/L UE. ) Discharge Medications Discharge Medications Benztropine Mesylate (Benztropine Mesylate) 1 Mg Tablet 1 MG PO BID (Reported) Divalproex ER (Depakote ER) 250 Mg Tablet 750 MG PO BID *DAILY USE ONLY* Swallowed whole without chewing to avoid local irritation of the mouth and throat. Prescribed by: DARIUS CARO DO Fluoxetine (Fluoxetine) 20 Mg Capsule 60 MG PO HS (Reported) Levetiracetam (Keppra) 500 Mg Tablet 500 MG PO BID Prescribed by: DARIUS CARO DO Melatonin (Melatonin) 3 Mg Tablet 3 MG PO HS (Reported) Mirtazapine (Mirtazapine) 15 Mg Tablet 7.5 MG PO HS (Reported) Propranolol HCl (Propranolol HCl) 20 Mg Tablet 20 MG PO DAILY (Reported) Ranitidine (Ranitidine) 150 Mg Capsule 150 MG PO BID (Reported) Trihexyphenidyl (Trihexyphenidyl) 2 Mg Tablet 2 MG PO TID (Reported) As needed Lorazepam (Lorazepam) 0.5 Mg Tablet 0.5-1 MG PO BID PRN PRN For Seizure ( Reported) Followup Plan Disposition: Home to retirement house. Consider possible assisted living facility in future. Discharge Diet: No restrictions Discharge Activity: No restrictions Follow-up Provider: Dayne Ayala Follow-up with PCP in: 1 week Time spent 45 minutes copies to: Dayne Ayala Vital Signs Vital Sign - Last Date Time Temp Pulse Resp B/P Pulse Ox O2 Delivery O2 Flow Rate FiO2 03/13/16 04:47 37.1 72 18 118/77 97 Room Air 03/08/16 04:00 2.00 Intake and Output 03/12/16 03/12/16 03/13/16 Cumulative From/Thru 15:00 23:00 07:00 03/06/16 15:18 - 03/13/16 04:19 Intake Total 1168 ml 79541 ml Output Total 1525 ml 60902 ml Balance -357 ml -4822 ml Intake Oral 1050 ml 8452 ml IV Total 118 ml 2926 ml Output Urine Total 1525 ml 60187 ml # Voids 3 # Bowel Movements 2 4 Lab and Diagnostics Result Diagram: 03/13/16 0445 03/13/16 0445 Darius Caro DO Mar 13, 2016 10:29
[2016-03-13 10:50] VITALS: BP 115/74; PULSE 71; RESP 20; O2SAT 98
--- NOTE | 2016-03-13 12:09 | NUR ---
Social Work: Discharge Data: Pt is on day 7 of hospitalization. EMR reviewed. D/C orders are in. MOLD INJECTOR spoke with pt this morning regarding transportation. Pt states he will call his mother and MOLD INJECTOR assisted him with dialing her phone number, there was no answer, pt left a message. MOLD INJECTOR followed up with pt who states his mother has not yet called. Pt states he usually uses [employer] and has his debit card. Pt requested MOLD INJECTOR call [employer] to set up transportation. MOLD INJECTOR called [employer] and requested they tile picker pt at main entrance of hospital at 12:45pm. No further d/c planning needs at this time. MOLD INJECTOR will continue to follow if needs arise. Assessment: Pt from [facility]. Plan: Pt will d/c to [facility] today via taxi at 12:45pm. No further d/c planning needs at this time. MOLD INJECTOR will continue to follow if needs arise. RAMON Lancaster
[2016-03-13] MEDS ORDERED: NITR100 PO (12:25)
--- NOTE | 2016-03-13 12:58 | NUR ---
Discharge Pt d/c back to adult family home via [facility] by DAVID and christopher and cab at 1241. PICC d/c by TOWN CLERK prior to leaving. pt denied pain. All personal belongings left with pt, including FWW. Discharge information provided, with emphasis on medications and compliance.
== END 2016-03-13 12:46 | disposition home or self-care (01) | DRG 100 ==
LOC: SED 14:52 → EDUNIT# 14:52 → MOC 20:18 → OBSVTOIN 20:18 → MOC 20:40 → CCU 03-07 10:40 → PCC 03-08 10:14 → MPC 03-09 17:34
PROVIDERS: ADMIT Hospitalist; ATTEND Hospitalist
DX: G40.909 Epilepsy, unspecified, not intractable, without status epilepticus (principal); G93.40 Encephalopathy, unspecified; N39.0 Urinary tract infection, site not specified; G20 Parkinson's disease; F20.9 Schizophrenia, unspecified; J44.9 Chronic obstructive pulmonary disease, unspecified; F43.10 Post-traumatic stress disorder, unspecified; I10 Essential (primary) hypertension; Z91.19 Patient's noncompliance with other medical treatment and regimen; Z79.82 Long term (current) use of aspirin; F31.9 Bipolar disorder, unspecified; G25.81 Restless legs syndrome

== ENCOUNTER 2016-03-16 15:22 | Inpatient (IN) | payer MEDICARE ==
[2016-03-16] VITALS (8 sets, daily range): BP systolic 124–156; BP diastolic 72–91; PULSE 74–88; RESP 14–20; O2SAT 92–98
[~2016-03-16] VITALS: Ht 175.3 cm; Wt 93.4 kg
[~2016-03-16 15:22] MED LIST changes: -AMN100C PO; -ASPI-973 PO; -ATOR20TA65 PO; -BENZ2AMP3 IJ; -CARB1TAB14 PO; -CHOL200025 PO; +DIVA250T2 PO; +FLUO20CA25 PO; -FLUO40CA12 PO; -HYDR12.5 PO; +KEP500TA PO; -LACT10SO27 PO; +LORA0.5T PO; -LORA1TAB PO; +MELA3TAB35 PO; +MIRT15TA6 PO; +NITR100 PO; -OXYB5TAB10 PO; -PRAZ2CAP2 PO; -PRIM50TA PO; +PROP20TA5 PO; +RANI150C4 PO; -TRAZ-118 PO; +TRIH2TAB2 PO; -ZOLP10TA5 PO
--- NOTE | 2016-03-16 15:25 | ED.REPORT ---
HPI-Altered Mental Status Date of Service Mar 16, 2016 ED Provider: Dr. Joey Molina M.D. A 60 year old male with a medical history including seizures, Parkinson's, bipolar disorder, COPD, and hypertension presents to the ED via EMS with altered mental status onset just prior to arrival. The patient was speaking with his mother on the phone when she became concerned for his mental status and called paramedics. EMS found the patient laying on his bed, minimally responsive but moving his mouth and tongue repetitively. His pupils were equal and reactive, he was breathing regularly, and his vital signs were normal. He was given 50 Benadryl en route. The patient lives in a residential home that works as a transitional house. He presents responsive to voice but unable to speak. The patient nods yes when asked if he is in pain. He has his prescriptions with him but his Divalproex bottle is empty and there is an unfilled prescription in his folder. The bottle indicates he should have run out of medication on 01/29/16. His bottle of Cogentin is full and appears unused but was filled in 08/24. The patient was admitted to the hospital for one week on 03/06/16 when he presented with similar symptoms and was diagnosed with acute encephalopathy, existing seizure disorder, and a UTI. Nursing Notes Stated Complaint: ALTERED MENTAL STATUS Nursing Notes Reviewed: Yes Allergies: Coded Allergies: haloperidol (Verified Allergy, Severe, Extrapyramidal Symptoms, 09/08/15) diazepam (Verified Adverse Reaction, Intermediate, sedation at low doses. , 09/08/15) Scheduled Benztropine Mesylate (Benztropine Mesylate) 1 Mg Tablet 1 MG PO BID Divalproex ER (Depakote ER) 250 Mg Tablet 750 MG PO BID *DAILY USE ONLY* Swallowed whole without chewing to avoid local irritation of the mouth and throat. Fluoxetine (Fluoxetine) 20 Mg Capsule 60 MG PO HS Levetiracetam (Keppra) 500 Mg Tablet 500 MG PO BID Melatonin (Melatonin) 3 Mg Tablet 3 MG PO HS Mirtazapine (Mirtazapine) 15 Mg Tablet 7.5 MG PO HS Nitrofurantoin Monohyd/M-Cryst (MacroBid) 100 Mg Capsule 100 MG PO BID Propranolol HCl (Propranolol HCl) 20 Mg Tablet 20 MG PO DAILY Ranitidine (Ranitidine) 150 Mg Capsule 150 MG PO BID Trihexyphenidyl (Trihexyphenidyl) 2 Mg Tablet 2 MG PO TID Scheduled PRN Lorazepam (Lorazepam) 0.5 Mg Tablet 0.5-1 MG PO BID PRN PRN For Seizure General Time Seen by MD: 15:25 Transferred From: [facility] Chief Complaint Decreased alertness, Decreased responsiveness Hx Obtained From: Patient, EMS Arrived By: Ambulance Sudden in Onset?: No Onset Occurred: Just prior to arrival Symptom Duration: Since onset Associated with: Denies: Fever Pertinent Negative: Relieved by nothing Related History: Reports Hypertension, Reports Recent illness Recent Healthcare: Recent doctor visit, Recent hospitalization Similar Sx Previous: Yes Past Medical History Past Medical History Notes: PCP: Dr. Palm Neurologist: Dr. Frazier Past Medical History Seizures Parkinson's Schizophrenia Bipolar disorder PTSD COPD Hypertension Hyperlipidemia Sleep Apnea Essential tremors Restless Leg syndrome Past Surgical History Cervical fusion Low back surgery Tonsillectomy Family History Father, at 82 from emphysema Smoking History Former Smoker Social History Resides at [facility] Alcohol Use: Denies alcohol use Drug Use: Denies drug use Other Social History: Local resident Ambulatory Status Independent Review of Systems Unable to Obtain ROS Patient condition, Mental status Physical Exam Initial Vital Signs Vital Signs (First) Date Time Temp Pulse Resp B/P Pulse Ox O2 Delivery O2 Flow Rate FiO2 03/16/16 15:35 36.7 87 14 156/91 98 Room Air Initial VS: Reviewed ENT: Conjunctiva normal, No scleral icterus Skin: Warm, Dry Alertness: Positive: Responds to verb stimuli GENERAL/CONSTITUTIONAL: Unable to speak but follows commands Patient presents with tongue thrusting, grunting sounds, and repeated puffing of lips Head / Eyes: Atraumatic, Normocephalic, EOMI Respiratory / Chest: Breath sounds NL, Breath sounds = bilat, No respiratory distress Cardiovascular: Heart rate NL, Regular rhythm, Heart sounds NL Mental Status: Positive: Responds to verbal stim Focal Weakness: Positive: Upper extremity bilat NEUROLOGIC: Obeys commands to squeeze fists and move eyes but is unable to speak Constant tongue thrusting, grunting sounds, and repeated puffing of lips Lower Extremity / Pelvis / MS: Vascular intact (Strong pedal pulses), No edema Interpretation & Diagnostics Lab Results Interpretation Result Diagram: 03/16/16 1540 03/16/16 1540 Test 03/16/16 15:40 03/16/16 16:00 White Blood Count 9.1th/mm3 (3.8-10.1) Red Blood Count 5.23mil/mm3 (4.40-5.80) Hemoglobin 16.1g/dL (13.8-17.2) Hematocrit 48.2% (41.0-50.0) Mean Corpuscular Volume 92.2fL (81-100) Mean Corpuscular Hemoglobin 30.8pg (27.0-35.0) Mean Corpuscular Hemoglobin Concent 33.4% (32.0-37.0) Red Cell Distribution Width 13.7% (12.3-15.4) Platelet Count 362bil/L (150-400) Neutrophils (%) (Auto) 49.5% (40-74) Lymphocytes (%) (Auto) 31.4% (14-46) Monocytes (%) (Auto) 14.6% (4-12) Eosinophils (%) (Auto) 2.6% (0-5) Basophils (%) (Auto) 0.8% (0-3) Sodium Level 144mEq/L (134-144) Potassium Level 4.9mEq/L (3.5-5.2) Chloride Level 103mEq/L (97-108) Carbon Dioxide Level 22mmol/L (18-29) Blood Urea Nitrogen 15mg/dL (8-27) Creatinine 0.67mg/dL (0.76-1.27) Estimat Glomerular Filtration Rate 129mL/min (>59) Glucose Level 99mg/dL (60-99) Calcium Level 9.2mg/dL (8.5-10.1) Total Bilirubin 0.2mg/dL (0.0-1.2) Aspartate Amino Transf (AST/SGOT) 33U/L (0-50) Alanine Aminotransferase (ALT/SGPT) 16U/L (0-44) Alkaline Phosphatase 108U/L (25-160) Total Protein 8.0g/dL (6.4-8.4) Albumin 4.0g/dL (3.4-5.0) Urine Color Yellow (YELLOW) Urine Appearance Hazy (CLEAR,HAZY) Urine pH 5.5 (5.0-8.0) Urine Specific [place] 1.031 (1.003-1.035) Urine Protein Negativemg/dL (NEG,TRACE) Urine Glucose (UA) Negativemg/dL (NEGATIVE) Urine Ketones 15mg/dL (NEGATIVE) Urine Occult Blood Trace (NEGATIVE) Urine Nitrite Negative (NEGATIVE) Urine Bilirubin Negative (NEGATIVE) Urine Urobilinogen Normalmg/dL (NORMAL) Urine Leukocyte Esterase Negative (NEGATIVE) Urine RBC 0-2/hpf (0-2) Urine WBC 6-10/hpf (0-5) Urine Epithelial Cells Few/hpf (NONE-MOD) Urine Crystals None seen (NONE SEEN) Urine Bacteria Few/hpf (NONE-FEW) Urine Hyaline Casts None/lpf (NONE) Urine Granular Casts None seen (NONE SEEN) Urine Waxy Casts None seen (NONE SEEN) Urine Red Blood Cell Casts None seen (NONE SEEN) Urine White Blood Cell Casts None seen (NONE SEEN) Urine Mucus Present (None Seen) Urine Trichomonas None seen (NONE SEEN) Urine Yeast None (NONE SEEN) Urinalysis Comment None Urine Culture Reflexed Indicated Re-Eval/Medical Decision Source of Hx: Old records Re-Evaluation/Progress : Time of Eval: 15:45 Patient Status: Condition improved Re-Evaluation/Progress Note: Patient's status is unchanged. He remains nonverbal. His presentation is essentially identical to the presentation a couple of weeks ago. No detailed images are obtained in as much as these were obtained just 2 weeks ago. Consultation #1: Referral / Consult Name: Dayne Frazier MD Consulted With: Neurology Call Returned at: 16:26 Metal Stamping Machine Operator: Will see patient (Will Consult), Agrees with eval, Agrees with plan Consultation #2: Referral / Consult Name: Dequan Alas MD Consulted With: Hospitalist Call Returned at: 17:02 Metal Stamping Machine Operator: Agrees with eval, Agrees with plan, Accepts admit Counseled Regarding: Diagnosis, Need for admission Patient Discharge & Departure Impression: Primary Impression: Decreased level of consciousness Additional Impressions: Tardive dyskinesia Epilepsy Epilepsy type: unspecified Intractability: not intractable Status epilepticus: without status epilepticus Qualified Code: G40.909 - Epilepsy, unspecified, not intractable, without status epilepticus Disposition: ADMITTED TO HOSPITAL Discharge Condition All VS Reviewed: Yes Condition: Stable Referrals: Dayne Ayala (PCP) Scribe Attestation Portions of this note were transcribed by Maureen Holcomb. I, Dr. Molina, personally performed the history, physical exam, and medical decision-making; I reviewed and confirmed the accuracy of the information in the transcribed note. Signed by: Bryson Davis, 03/16/2016, 17:03 copies to: Dayne Ayala Kirk H MD Mar 16, 2016 15:25 MAUREEN HOLCOMB Mar 16, 2016 15:58
[2016-03-16] MEDS ORDERED: levETIRAcetam Inj 1,000 MG in IV Premix 1 EACH IV ONE (15:55)
[2016-03-16 16:03] LABS: BASOPHILS % (AUTO) 0.8 % (0-3); EOSINOPHILS % (AUTO) 2.6 % (0-5); MONOCYTES % (AUTO) 14.6 % (4-12); Mean Corpuscular Hemoglobin 30.8 pg (27.0-35.0); Mean Corpuscular Volume 92.2 fL (81-100); NEUTROPHILS % (AUTO) 49.5 % (40-74); Platelet Count 362 bil/L (150-400)
[2016-03-16 16:42] LABS: APPEARANCE,URINE HAZY (CLEAR,HAZY); COLOR,URINE YELLOW (YELLOW); OCCULT BLOOD,URINE TRACE (NEGATIVE); PH,URINE 5.5 (5.0-8.0)
[2016-03-16 16:43] LABS: UROBILINOGEN,URINE NORMAL (NORMAL)
[2016-03-16] MEDS ORDERED: Ondansetron 2 mg/mL 2 mL Inj IVPUSH PRN (16:50)
[2016-03-16] MEDS ORDERED: Ampicillin-Sulbactam Inj 1,500 MG in 0.9% Sodium Chloride 50 ML IV ONE (17:25)
--- NOTE | 2016-03-16 17:27 | PCM.HPMED ---
Subjective Date of Service Mar 16, 2016 Primary Provider: Admitting Physician: Dequan Alas MD Primary Care Physician: Dayne Ayala Attending Physician: Dequan Alas MD Chief Complaint: incoherent on phone w/ mother HISTORY was OBTAINED FROM PATIENT / MEDITECH NOTES History of present illness 60-year-old male from adult family home, did not refill his seizure medications (all paper scripts still in [facility] discharge folder) AFTER last admission 03/06/2016 -03/13/2016 and found on bed, brought in today after he was incoherently slurring speech and crying on the phone to his mother who had her correction home call EMS. EMS noted chewing/oral repetitive movements, s/p benadryl. ER doctor spoke with neurologist/Karin who recommended resuming benztropine for the tardive dyskinesia but while responsive and nods with abdominal tenderness per ER doctor , not safe to swallow, then loaded w/ keppra IV. In the ER, Keppra, 156/91, 90% room air, 36.7, urine tox screen positive for barbiturates, negative for others negative for benzo, urine output 800 mL, straight cath 400 mL, normal saline 250cc In the mensah, incoherent, attempts to talk especially when told that his mother is on the phone, ongoing repetitive oral movements not regular rhythm. 03/13/2016 -- discharged w/ Acute Encephalopathy, Resolved with improved seizure control. macrobid for enterococcus UTI-cipro/pcn vanco sensitive - attributed to yin related, - Depakote increased to 750mg by mouth, two times per day - Keppra *New medication* 500mg by mouth, two times per day All these scripts are in his discharge folder that EMS brought concurrent resting tremor - parkinsonian symptoms per mother, not parkinson's per [place] evaluation, treated w/ Trihexyphenidyl 2 mg tid. Schizophrenia. Chronic, -outpatient Psych follow up considered at that time Review of Systems -unable to converse coherently PMHx PCP: Dr. Palm Neurologist: Dr. Frazier Seizures Parkinsonian symptoms Schizophrenia Bipolar disorder PTSD COPD/pneumonia/hiatal hernia GERD Hypertension Hyperlipidemia Sleep Apnea Essential tremors Restless Leg syndrome/arthritis/back injury/ Cervical fusion Low back surgery Tonsillectomy Family History Father, at 82 from emphysema Social History Resides at [facility] Former Smoker MEDICATIONS Benztropine Mesylate (Benztropine Mesylate) 1 Mg Tablet 1 MG PO BID Divalproex ER (Depakote ER) 250 Mg Tablet 750 MG PO BID *DAILY USE ONLY* Swallowed whole without chewing to avoid local irritation of the mouth and throat. Fluoxetine (Fluoxetine) 20 Mg Capsule 60 MG PO HS Levetiracetam (Keppra) 500 Mg Tablet 500 MG PO BID Melatonin (Melatonin) 3 Mg Tablet 3 MG PO HS Mirtazapine (Mirtazapine) 15 Mg Tablet 7.5 MG PO HS Nitrofurantoin Monohyd/M-Cryst (MacroBid) 100 Mg Capsule 100 MG PO BID Propranolol HCl (Propranolol HCl) 20 Mg Tablet 20 MG PO DAILY Ranitidine (Ranitidine) 150 Mg Capsule 150 MG PO BID Trihexyphenidyl (Trihexyphenidyl) 2 Mg Tablet 2 MG PO TID Scheduled PRN Lorazepam (Lorazepam) 0.5 Mg Tablet 0.5-1 MG PO BID PRN PRN For Seizure Allergies Coded Allergies: haloperidol (Verified Allergy, Severe, Extrapyramidal Symptoms, 09/08/15) diazepam (Verified Adverse Reaction, Intermediate, sedation at low doses. , 09/08/15) PMH Social History Hx Alcohol Use: Yes (NONE IN ABOUT A YEAR) Hx Substance Use: No Hx Tobacco Use: Yes Smoking Status: Former Smoker Exam Vital Signs Vital Sign - Last Date Time Temp Pulse Resp B/P Pulse Ox O2 Delivery O2 Flow Rate FiO2 03/16/16 17:07 78 16 135/80 92 Room Air 03/16/16 15:35 36.7 Lab and Diagnostics Labs Exam on admission NAD comfortable NC/AT no icterus no injected eyes PERRL /no pharyngeal lesions/ no oral lesions / hearing intact Supple neck CTAB equal chest rise / no accessory muscle use // no rrw RRR S1 S2 / no mrg / 2+ radial pulses Soft nt nd + BS no hepatosplenomegaly No edema no cyanosis no ecchymosis of lower extremities No rash / no jaundice COATES-fingers, not to pain, attempts to communicate, opens mouth easily w/ passive assistance, oral dyskinesia, attempts to open eyes reflexes upper and lower intact symmetrical UA negative nitrite and negative leukocyte Estrace negative yeast Urine culture pending LFTnormal Imaging CT head today PROCEDURE: CT BRAIN WITHOUT CONTRAST ([id number]) INDICATIONS: 60-year-old male with tardive dyskinesia. TECHNIQUE: Noncontrast 4.5 mm thick angled axial sections acquired from the foramen magnum to the vertex, with coronal reformats. COMPARISON: [facility], CT, CT BRAIN WO CON, 03/07/2016, 19:59. [facility], CT, CT BRAIN WO CON, 03/06/2016, 15:30. [facility], CT, CT BRAIN WO CON, 12/30/2015, 7:28. FINDINGS: Image quality: Excellent. CSF spaces: Basal cisterns are patent. No extra-axial fluid collections. Ventricles are normal in size and shape. Brain: No midline shift. No intracranial masses or hemorrhage. Gutierrez-white matter interface is normal. Skull and face: Calvarium and visualized facial bones are intact, without suspicious lesions. Sinuses: Mild bilateral maxillary sinus mucosal thickening is unchanged. There is persistent moderate ethmoid sinus mucosal thickening. Mastoids appear clear. IMPRESSION: No acute intracranial abnormalities. Findings suggestive of maxillary and ethmoid sinusitis. 03/07/16 PROCEDURE: CT BRAIN WITHOUT CONTRAST ([id number]) INDICATIONS: Seizures TECHNIQUE: Noncontrast 4.5 mm thick angled axial sections acquired from the foramen magnum to the vertex, with coronal reformats. COMPARISON: None. FINDINGS: Image quality: Excellent. CSF spaces: Basal cisterns are patent. No extra-axial fluid collections. The ventricles are symmetric in size and shape. Brain: No intracranial bleeds or masses. There is cerebral volume loss for age , with resultant ventricular and sulcal prominence. There are periventricular and deep white matter chronic small vessel ischemic changes. There is intracranial internal carotid artery atherosclerosis. Skull and face: Calvarium and visualized facial bones appear intact, without suspicious lesions. Sinuses: Mild bilateral maxillary sinus mucosal thickening. Moderate left and mild right ethmoid air cell mucosal thickening. Visualized sinuses and mastoids are otherwise clear. IMPRESSION: No acute intracranial abnormality. Sinus disease. 03/06/2016 PROCEDURE: CT ABDOMEN AND PELVIS WITHOUT CONTRAST ([id number]) INDICATIONS: diffuse belly pain, decreased responsiveness TECHNIQUE: Noncontrast 5 mm thick sections acquired from the diaphragms to the symphysis. 5 mm coronal and sagittal reformats were then performed. For radiation dose reduction, the following was used: automated exposure control, adjustment of mA and/or kV according to patient size. COMPARISON: None. FINDINGS: Image quality: Excellent. ABDOMEN: Lung bases: Lung bases are clear. Heart size is normal. Solid organs: Liver and spleen are normal in size. Gallbladder is unremarkable. Pancreas is normal in contours. No adrenal nodules. Kidneys are normal in size, without hydronephrosis or nephrolithiasis. Peritoneum and bowel: Unenhanced bowel loops demonstrate normal wall thickness and caliber. The appendix is thin walled and gas filled. No free fluid or air. Nodes and vessels: No retroperitoneal or mesenteric adenopathy by size criteria. Aorta and inferior vena cava are normal in caliber. There are scattered atheromatous calcifications throughout the aorta and iliac arteries bilaterally. Miscellaneous: No ventral hernias. PELVIS: Genitourinary: Bladder is decompressed and a Yin catheter is present. Miscellaneous: No inguinal hernias or adenopathy. Bones: No suspicious bony lesions. No vertebral body compression fractures. IMPRESSION: 1. No acute intra-abdominal findings. Normal appendix. 2. Aortic atherosclerosis. Result Diagram: 03/16/16 1540 03/16/16 1540 Assessment & Plan Active issues and reason for admission Encephalopathy, recurrent, contributory non-compliance of seizure meds, ongoing tardive dyskinesia of mouth, respiratory alkalosis --loaded w/ keppra in ER x 1 and now w/ fosphenytoin load x 1 now, Dr Frazier to visit tomorrow - call prn, did not add maintenance doses yet --B12 pending Keppra/VPA levels pending --no metabolic acidosis, pending CPK/Trop I to eval rhabdomyolysis/WA contributing --pending salycylate --Utox + barbituates in ER only Tardive dyskinesia --resume benztropine when able to safely take POs known UTI enterococcus, macrobid 03/13/2016 on discharge and persistent sinusitis --start unasyn, no quinolone due to previously known prolonged QT --ocean spray and flonase Chronic issues known prior to admission, present on admission Seizures Parkinsonian symptoms Essential tremors Restless Leg syndrome/arthritis /back injury Schizophrenia Bipolar disorder PTSD COPD/pneumonia Sleep Apnea hiatal hernia GERD Hypertension Hyperlipidemia Cervical fusion Low back surgery --PPI IV, hold home PO meds Diet npo banana bag, per mother no recent EtOH use DVT prophylaxis lovenox Code full Disposition inpt Assessment and plan were discussed with mother, unable to assist, his children appear to not be involved, he apparently can't afford rides nor care for himself by taking his medications, attempt SNF placement Dequan Alas MD Mar 16, 2016 17:27
--- NOTE | 2016-03-16 18:27 | NUR ---
admitted to room 1008 from ER obtunded pt arrived per stretcher, responding to persistent voice, with nods and eye opening but not verbally, nodded that he did not know where he was, VSS, no sz activity noted
[2016-03-16] MEDS ORDERED: Valproate Sodium Inj 1,000 MG in Dextrose 5% 100 ML IV ONE (19:55)
[2016-03-16] MEDS: Ampicillin-Sulbactam Inj 1,500 MG in 0.9% Sodium Chloride 50 ML IV SCH (20:05)
[2016-03-16] MEDS ORDERED: MGPE IV ONE (20:10)
[2016-03-16] MEDS ORDERED: FOSPHENYTOIN IV ONE (20:10)
[2016-03-16] MEDS ORDERED: SODIUM CHLORIDE 0.9% IV ONE (20:10)
[2016-03-16] MEDS: Dextrose 5% 0.45% NaCl 1,000 ML IV SCH (20:41)
--- NOTE | 2016-03-16 20:56 | DRSVH ---
PROCEDURE: CT BRAIN WITHOUT CONTRAST ([id number]) INDICATIONS: 60-year-old male with tardive dyskinesia. TECHNIQUE: Noncontrast 4.5 mm thick angled axial sections acquired from the foramen magnum to the vertex, with c oronal reformats. COMPARISON: [facility], CT, CT BRAIN WO CON, 03/07/2016, 19:59. [facility], CT, CT BRAIN WO CON, 03/06/2016, 15:30. [facility], CT, CT BRAIN WO CON, 12/30/2015, 7:28 . FINDINGS: Image quality: Excellent. CSF spaces: Basal cisterns are patent. No extra-axial fluid collections. Ventricles are normal in size and shape. Brain: No midline shift. No intracranial masses or hemorrhage. Gutierrez-white matter interface is norm al. Skull and face: Calvarium and visualized facial bones are intact, without suspicious lesions. Sinuses: Mild bilateral maxillary sinus mucosal thickening is unchanged. There is persistent moderate ethmoid sinus mucosal thickening. Mastoids appear clear. IMPRESSION: No acute intracranial abnormalities. Findings suggestive of maxillary and ethmoid sinusitis. Dictated by: David Conn M.D. on 03/16/2016 at 20:51 Approved by: David Conn M.D. on 03/16/2016 at 20:55
--- NOTE | 2016-03-16 21:26 | ABG ---
DateTimeAnalyzed 21:21:00 -_ pH ____7.541 - 7.350 7.450 pCO2 ___19.1__ -mmHg 35.0 45.0 pO2 103 -mmHg 69.0 116 HCO3- ___16.4__ -mmol/L 22.0 26.0 ABE ___-3.5__ -mmol/L -2.0 2.0 tHb ___15.3__ -g/dL O2Hb ___96.7__ -% COHb ____1.0__ -% MetHb ____0.9__ -% sO2 ___98.6__ -% 25.0 FIO2 ___21.0__ -% Drawn By MD - Date/Time Notified____ 21:26:00 -_ Notified By MD - Notified Whom RN - B 739 -mmHg tO2 ___20.9__ -Vol% Selvin test N/A -
[2016-03-16] MEDS ORDERED: Multivitamin w/Vit K Inj 10 ML, Thiamine Inj 100 MG, Folic Acid Inj 1 MG, Magnesium Sul... IV ONE ×5 (21:46)
--- NOTE | 2016-03-16 21:51 | NUR ---
RESP; ABGS done and called to Dr. Alas by Conchis Root.
[2016-03-16 22:57] LABS: Creatine Kinase 40 U/L (21-232)
--- NOTE | 2016-03-16 23:05 | NUR ---
NEURO; dr. perez in short time ago and talked to pt telling him his mom had called to see how he was doing and pt started crying. Opening eyes and mumbles unable to understand pt. Room air. 97% 02 sat. R.T. aware of Cpap order and deemed it not necessary for cpap at this time.
[2016-03-16] MEDS: Fluticasone 0.05% 15 Spray/2 Gm 16 Gm Nasal Spray NASAL SCH (23:59)
[2016-03-17] VITALS (8 sets, daily range): BP systolic 124–149; BP diastolic 78–91; PULSE 71–99; RESP 18–22; O2SAT 97–99
--- NOTE | 2016-03-17 00:07 | NUR ---
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 Opens eyes and trying to focus on talker. Delmer.
--- NOTE | 2016-03-17 02:34 | NUR ---
NEURO/: moving arms in air and talking to himself. Repositioned to right side. Pt asleep at this time. In and out cath was done in e.r. Pt bladder scanned at h.s., no urinary retention noted.
[2016-03-17] MEDS: Sodium Chloride NAS 45 mL Spray NASAL SCH ×5 (02:59→23:16)
[2016-03-17] MEDS: Ampicillin-Sulbactam Inj 1,500 MG in 0.9% Sodium Chloride 50 ML IV SCH ×4 (02:59→23:21)
[2016-03-17] MEDS: Dextrose 5% 0.45% NaCl 1,000 ML IV SCH ×2 (03:45→23:12)
--- NOTE | 2016-03-17 05:09 | NUR ---
; pt bladder scanned- >900cc. Dr. Malhotra "shereen paged"
--- NOTE | 2016-03-17 05:29 | NUR ---
; in and out cath done with 600cc clear hcristoph urine obtained. Addendum: 03/17/16 at 0621 by ANDRADE GORDILLO RN Resp; continuous pulse ox on- 98 to 100% on room air.
--- NOTE | 2016-03-17 08:01 | NUR ---
responding verbally some asked if he had back pain, he nodded and repeated "Yes, back pain". He indicated he did not know where he was, He also got out "tell me what's wrong with me". Difficulty speaking due to severe tardive dyskinesia
[2016-03-17] MEDS ORDERED: VALPROATE SODIUM IV SCH (08:30)
[2016-03-17] MEDS ORDERED: DEXTROSE 5% IV SCH (08:30)
--- NOTE | 2016-03-17 10:22 | NUR ---
Evaluation completed. Please go to "Notes" then click on "Assessments and Notes" (bottom left corner of screen). Then select appropriate discipline tab on top of screen.
[2016-03-17] MEDS: Benztropine 1 mg/mL 2 mL Inj IM SCH ×2 (11:05→23:17)
[2016-03-17] MEDS: Pantoprazole 4 mg/mL 10 mL Inj IVPUSH SCH ×2 (11:23→16:12)
[2016-03-17] MEDS: Fluticasone 0.05% 15 Spray/2 Gm 16 Gm Nasal Spray NASAL SCH (11:24)
--- NOTE | 2016-03-17 12:54 | PCM.PNMED ---
Subjective Date of Service Mar 17, 2016 Subjective Patient has significant tardive dyskinesia which interfered communication greatly patient is oriented at least x2, denied headache, dizziness Patient seems to have some understanding of current status No additional seizure activity reported overnight Patient was loaded with Keppra and Dilantin Exam Vital Signs Vital Sign - Last Date Time Temp Pulse Resp B/P Pulse Ox O2 Delivery O2 Flow Rate FiO2 03/17/16 11:03 90 03/17/16 10:07 36.9 18 149/90 99 Room Air Intake and Output 03/16/16 03/16/16 03/17/16 Cumulative From/Thru 15:00 23:00 07:00 03/16/16 16:08 - 03/17/16 06:42 Intake Total 500 ml 769 ml 1269 ml Output Total 800 ml 600 ml 1400 ml Balance -300 ml 169 ml -131 ml Intake Oral 0 ml 0 ml 0 ml IV Total 500 ml 769 ml 1269 ml Output Urine Total 800 ml 600 ml 1400 ml # Bowel Movements 0 0 Exam NAD, comfortably laying down on the bed no JVD, MMM, no LAD RRR, nl s1, s2 no mrg CTAB, no w,c S,ND,NT,normoactive BS+ warm, no edema, pulses 2 Neuro:followed simple commands, AAOx2, persistent involuntary lip/tongue movement, PERRLA, EOMI, symmetric face, no uvulae tongue deviation, able shrug shoulders equally able rotate neck equally on both sides IVs and Medications Medications Reviewed: Medications were reviewed in detail Lab and Diagnostics Result Diagram: 03/16/16 1540 03/16/16 1540 Assessment & Plan Active issues and reason for admission Encephalopathy, recurrent, contributory non-compliance of seizure meds, ongoing tardive dyskinesia of mouth, respiratory alkalosis, --VPA level suggestive of non-compliance --loaded w/ keppra in ER x 1 and now w/ fosphenytoin load x 1 now, appreciate Dr Frazier input on AEDs, -continue keppra 500mg iv bid for now Tardive dyskinesia, POA, from previous long standing anti-psychotics, unclear currently this has worsened from baseline, significantly limit oral intake, failed s/s test today. -will continue [id number] bid IM, we will transition to oral once patient can tolerate -try ativan 0.5mg iv tid for now -appreciate neuro input known UTI enterococcus, macrobid 03/13/2016 on discharge and persistent sinusitis --continue unasyn, no quinolone due to previously known prolonged QT --ocean spray and flonase Chronic issues known prior to admission, present on admission Seizures Parkinsonian symptoms Essential tremors Restless Leg syndrome/arthritis /back injury Schizophrenia Bipolar disorder PTSD COPD/pneumonia Sleep Apnea hiatal hernia GERD Hypertension Hyperlipidemia Cervical fusion Low back surgery --PPI IV, hold home PO meds Diet npo banana bag, per mother no recent EtOH use DVT prophylaxis lovenox Code full Disposition likely SNF, PT ordered, [employer] Devices: Intermittant Pneumatic CD Time spent 35 minutes Annamarie Cardenas MD Mar 17, 2016 12:54
--- NOTE | 2016-03-17 14:31 | NUR ---
Evaluation completed. Please go to "Notes" then click on "Assessments and Notes" (bottom left corner of screen). Then select appropriate discipline tab on top of screen.
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
--- NOTE | 2016-03-17 16:40 | NUR ---
pt much improved after receiving IV Keppra, Ativan and IM Cogentin within 1-2 hours pt improved dramatically. He is able to converse, he is much calmer, involuntary movement is decreased, he hasn't had any further coughing fits since this am either. Pt has sitter because he got out of bed twice, disregarding his IV and SCDs and was drinking water out of the tap. IV did not get dislodged
--- NOTE | 2016-03-17 18:42 | NUR ---
Case Management: Message left with Mom (earlier today) regarding SANTOS. I went to see if Mom with patient--she was not. I did write my name and number down so Sitter will call me if Mom arrives. Gissel Najera RN
[2016-03-17] MEDS: DEXTROSE 5% IV SCH (23:22)
[2016-03-17] MEDS: VALPROATE SODIUM IV SCH (23:22)
--- NOTE | 2016-03-18 00:05 | CONS ---
[address] [address] CONSULTATION REPORT PATIENT: FLAQUITO BIGGS : 1955 MR#: [id number] ADMIT: 03/16/2016 JOB ID: [id number] DATE OF SERVICE: 03/17/2016 REQUESTING PROVIDER: Joey Molina MD CHIEF COMPLAINT: Seizure. HISTORY OF PRESENTING ILLNESS: The patient is a very pleasant, 60-year-old man, with multiple medical problems, including tardive dyskinesia, atypical Parkinsonism and localization-related seizure disorder, who presented to the emergency department after a breakthrough seizure. He lives in a residential home and it works as a transitional home. It appears that he was not able to fill his Depakote, and his Depakote bottle is empty and there is an unfilled prescription in his folder. He had a bottle of Cogentin that also appeared to have been unfilled. ALLERGIES: HALOPERIDOL and DIAZEPAM. MEDICATIONS: Include: 1. Benztropine 1 mg p.o. b.i.d. 2. Depakote 750 mg p.o. b.i.d. 3. Fluoxetine 60 mg p.o. q.h.s. 4. Levetiracetam 500 mg p.o. b.i.d. 5. Melatonin 3 mg p.o. q.h.s. 6. Mirtazapine 7.5 mg p.o. q.h.s. 7. Nitrofurantoin 100 mg p.o. b.i.d. He was completing a course of this for a recent urinary tract infection. 8. Propranolol 20 mg p.o. daily. 9. Ranitidine 150 mg p.o. b.i.d. 10. He was prescribed trihexyphenidyl as an outpatient. However, it appears that he has not started on this medication. 11. He also has lorazepam 0.5-1 mg p.o. b.i.d. p.r.n. PAST MEDICAL HISTORY: As noted above. Restless legs syndrome, essential tremor, sleep apnea, hyperlipidemia, hypertension, chronic obstructive pulmonary disease, chronic stress disorder, bipolar disorder, schizoaffective disorder, atypical Parkinson's, and localization-related seizure disorder. PAST SURGICAL HISTORY: Of cervical fusion, low back surgery and tonsillectomy. FAMILY HISTORY: No neurological disorders. SOCIAL HISTORY: No tobacco, alcohol, or drugs. He resides at [facility]. REVIEW OF SYSTEMS: A complete review of systems was performed and was remarkable for above-noted. It appears that he was unable to take his medications when he to his home. In the emergency department, he was loaded with IV Keppra 1 g. He was noted then to have suspected seizure activity and was loaded with IV fosphenytoin. His medications were switched to IV and IM, and he is noted today to be much improved. He was noted to be conversant. Did appear to be mildly confused. DIAGNOSTIC STUDIES: A CT of his head was performed, which demonstrated no acute intracranial abnormalities. Findings suggestive of maxillary and ethmoid sinusitis. LABORATORY STUDIES: WBC of 9.1, hemoglobin 16.1, hematocrit 48.2, and platelets of 362. Sodium 144, potassium 4.9, chloride 103, bicarb 22, BUN was 15, creatinine was 0.67, glucose was 99. LFTs were within normal limits. Urinalysis, few urine bacteria, trace occult blood, otherwise unremarkable. Few urine epithelial cells. Valproic acid level 5. PHYSICAL EXAMINATION: Temperature 37.4 pulse of 80, respiratory rate of 22, blood pressure 124/79, pulse oximetry 97% on room air. General: He is a well-developed, well-nourished man, in mild acute distress. Head: Normocephalic, atraumatic. Neck: Supple. No carotid bruits were auscultated. Negative Kernig. Negative Brudzinski. Chest: Clear to auscultation. Heart: Regular rate and rhythm. Abdomen: Soft, nondistended, nontender. Extremities: No cyanosis, clubbing, or edema. NEUROLOGIC EXAMINATION: He is awake, alert, and oriented x2. No aphasia. He has prominent tardive dyskinesias. Cranial nerves: Pupils equal, round, reactive to light. Extraocular movements were smooth and conjugate, with no evidence of nystagmus. Face appeared symmetrical. Facial sensation was intact to light touch and temperature. Auditory sensation was intact to finger rub. Palatal elevation was symmetrical. Tongue was midline. Sternocleidomastoid and trapezii are 5/5 bilaterally. There are prominent tardive dyskinetic movements which are continuous. Motor: Normal tone and bulk. Muscle strength 5/5 throughout. Sensation intact to light touch and temperature. Deep tendon reflexes 2+ and symmetrical. Plantars flexor bilaterally. Coordination: [id number] was intact bilaterally with no evidence of nystagmus. Gait was deferred. IMPRESSION: Suspect a breakthrough seizure secondary to noncompliance. RECOMMENDATIONS: Recommend IV Depakote 750 mg b.i.d., then switching to oral when he can tolerate oral medications. Check a Depakote level tomorrow morning. Continue Keppra 500 mg b.i.d. Once he is able to switch to oral, I would switch all of his medications back to oral. I would also recommend social work involvement regarding issues of placement and compliance with medications. I do recommend that he continue on levetiracetam 500 mg b.i.d. and Depakote 750 mg b.i.d., as well as benztropine 1 mg b.i.d., lorazepam 0.5 mg every 8 hours as needed for severe tardive dyskinesias. I recommend titration of valproic acid as needed until goal of a therapeutic range is reached. Keppra levels do take some time to come back and are a send out, and Keppra may be ingested as needed. I also recommend obtaining an electroencephalogram. I will continue to follow. Thank you, again, Dr. Molina, for consulting me and allowing me to participate in the care of your patient. Please feel free to contact me with any questions or concerns. Continue seizure precautions. Although he does appear mildly confused, he was then directed and able to relate a history and review of systems for me. He may also benefit from a gradual titration upwards in 0.5 mg increments every week of his Cogentin, up to a goal dose of 3 mg b.i.d. as tolerated. In the meantime, continue lorazepam 0.5 mg t.i.d.
--- NOTE | 2016-03-18 01:29 | NUR ---
Activity Patient was behaving and responding appropriately during shift. Answered questions regarding physical assessment. Patient stated he was tired and wanted to rest. VSS. Call light within reach. Care continues.
[2016-03-18 05:40] LABS: BASOPHILS % (AUTO) 0.8 % (0-3); EOSINOPHILS % (AUTO) 1.8 % (0-5); MONOCYTES % (AUTO) 16.8 % (4-12); Mean Corpuscular Hemoglobin 31.6 pg (27.0-35.0); NEUTROPHILS % (AUTO) 52.4 % (40-74); Platelet Count 351 bil/L (150-400)
[2016-03-18 06:09] LABS: Magnesium 1.9 mg/dL (1.6-2.6); Phosphorus 2.7 mg/dL (2.5-4.9)
[2016-03-18] MEDS: Ampicillin-Sulbactam Inj 1,500 MG in 0.9% Sodium Chloride 50 ML IV SCH ×4 (06:10→23:17)
[2016-03-18] MEDS: Sodium Chloride NAS 45 mL Spray NASAL SCH ×4 (06:30→21:05)
[2016-03-18 06:42] VITALS: BP 123/82; PULSE 75; RESP 20; O2SAT 98
[2016-03-18] MEDS: Pantoprazole 4 mg/mL 10 mL Inj IVPUSH SCH ×2 (08:48→17:34)
[2016-03-18] MEDS: Benztropine 1 mg/mL 2 mL Inj IM SCH (08:55)
[2016-03-18 09:30] VITALS: PULSE 67
--- NOTE | 2016-03-18 11:03 | NUR ---
Ambulate w/Nsg Pt is released to ambulate w/nsg w/FWW 2-3x/day as pt tolerates. PT will cont to see 2x/day for progression of AD as indicated by outcomes.
--- NOTE | 2016-03-18 11:07 | NUR ---
Called and spoke with Brenda Tomlinson CM at [facility] and spoke with her about patient, PT is now signing off and patient can ambulate with nursing. Patient walked 300+ feet, patient will not meet skilled need. Updated TEMPLATE CLERK
--- NOTE | 2016-03-18 11:17 | NUR ---
Ayoagement - IMM explained and signed by patient. Alla OREILLY-RN
[2016-03-18] MEDS: VALPROATE SODIUM IV SCH (11:27)
[2016-03-18] MEDS: DEXTROSE 5% IV SCH (11:27)
[2016-03-18] MEDS: Fluticasone 0.05% 15 Spray/2 Gm 16 Gm Nasal Spray NASAL SCH (11:31)
[2016-03-18] MEDS: Dextrose 5% 0.45% NaCl 1,000 ML IV SCH (11:33)
--- NOTE | 2016-03-18 11:56 | PCM.PNMED ---
Subjective Date of Service Mar 18, 2016 Subjective Patient is alert and oriented 3 Patient does not remember what happened at his [facility] Patient did remember he was not able to move his legs or arms EEG ordered by Dr. henderson, added valproic acid Patient shows significantly less tardive dyskinesia on benztropine, ativan pt agrees that he needs higher level of care, SW to assess SNF for dispo Exam Vital Signs Vital Sign - Last Date Time Temp Pulse Resp B/P Pulse Ox O2 Delivery O2 Flow Rate FiO2 03/18/16 10:51 Room Air 03/18/16 09:30 67 03/18/16 06:42 36.7 20 123/82 98 Intake and Output 03/17/16 03/17/16 03/18/16 Cumulative From/Thru 14:59 22:59 06:59 03/16/16 16:08 - 03/18/16 06:57 Intake Total 0 ml 2452 ml 3721 ml Output Total 2 ml 550 ml 1952 ml Balance -2 ml 1902 ml 1769 ml Intake Oral 0 ml 0 ml 0 ml IV Total 2452 ml 3721 ml Output Urine Total 2 ml 550 ml 1952 ml # Voids 2 2 # Bowel Movements 0 0 Exam NAD, comfortably laying down on the bed no JVD, MMM, no LAD RRR, nl s1, s2 no mrg CTAB, no w,c S,ND,NT,normoactive BS+ warm, no edema, pulses 2/2 Neuro:AAOx3, ambulate with normal gait, persistent involuntary lip/tongue movement, less than prior day. PERRLA, EOMI, symmetric face, no uvulae tongue deviation, able shrug shoulders equally able rotate neck equally on both sides IVs and Medications Medications Reviewed: Medications were reviewed in detail Lab and Diagnostics Result Diagram: 03/18/16 0500 03/18/16 0500 Assessment & Plan Active issues and reason for admission #Encephalopathy, recurrent, suspecting breakthough seizure due to non- compliance of AEDs, ongoing tardive dyskinesia also contribute to limited oral intake, VPA level suggestive of non-compliance -greatly appreciate Dr Henderson input on management --loaded w/ keppra in ER x 1 and now w/ fosphenytoin load x 1 now -continue keppra 500mg iv bid, added VPA 750mg bid iv, switch to po once pt can tolerate -d/c when therapeutic VPA level achieved, daily level #Tardive dyskinesia, POA, from previous long standing anti-psychotics, significantly limit oral intake, failed s/s test on admission, responding to current tx -continue [id number] bid IM, we will transition to oral once patient can tolerate, plan is to slowly increment target dose to 3mg bid, increase 0.5mg weekly per -continue ativan 0.5mg iv tid, switch to oral soon -appreciate neuro input #known UTI enterococcus, macrobid 03/13/2016 on discharge and persistent sinusitis --continue unasyn, no quinolone due to previously known prolonged QT --ocean spray and flonase Chronic issues known prior to admission, present on admission Seizures Parkinsonian symptoms Essential tremors Restless Leg syndrome/arthritis /back injury Schizophrenia Bipolar disorder PTSD COPD/pneumonia Sleep Apnea hiatal hernia GERD Hypertension Hyperlipidemia Cervical fusion Low back surgery --PPI IV, hold home PO meds Diet npo banana bag, per mother no recent EtOH use DVT prophylaxis lovenox Code full Disposition likely SNF in 1-2days, VTE Mechanical Devices: Intermittant Pneumatic CD Time spent 35 minutes Annamarie Cardenas MD Mar 18, 2016 11:56
[2016-03-18 13:27] VITALS: BP 110/65; PULSE 79; RESP 18; O2SAT 96
--- NOTE | 2016-03-18 13:45 | PROCED ---
[address] [address] EEG PATIENT: FLAQUITO BIGGS : 1955 MR#: [id number] ADMIT: 03/16/2016 JOB ID: [id number] DATE: 03/18/2016 HISTORY: The patient is a 60-year-old man with a history of tardive dyskinesia, atypical Parkinson's and transient spells as well as generalized tonic-clonic seizures. TECHNICAL DESCRIPTION: This digital EEG was recorded using 25 scalp and ear, and two EKG electrodes. It was reviewed in bipolar and referential montages following reformatting of the 10-20 International Electrode Placement System. During the recording, the patient was noted to be awake, drowsy, and asleep. The background was composed of an 8.5 hertz, 10-20 microvolt symmetrical and reactive posterior dominant rhythm that attenuated with eye opening. The rest of the background was composed of low voltage faster frequencies. There was abundant frontally predominant beta which appeared bilaterally throughout this recording. The tongue and lip movements demonstrated no electrocortical correlation. There were no focal, lateralized or epileptiform discharges noted. There were no seizures seen. There was abundant myogenic movement artifact. Hyperventilation was not performed. Photic stimulation from 1-30 hertz did not elicit any photic driving response. Sleep was characterized by the attenuation of the alpha rhythm and the appearance of symmetrical vertex waves, heralding stage 1 of sleep. This is followed by the development of symmetrical sleep spindles heralding stage 2 of sleep. He did appear restless throughout this study except when asleep. The EKG rhythm strip revealed a heart rate of 60-80 beats per minute with no apparent arrhythmias. IMPRESSION: This EEG performed in the awake, drowsy, and asleep states is abnormal. The frontally predominant bilateral beta activity is suggestive of medication effect. The rest of this electroencephalogram was within normal limits. Clinical correlation is advised. MTDD
--- NOTE | 2016-03-18 14:16 | NUR ---
Social Work Initial Assessment: SW met with patient at bedside to discuss discharge plan. Patient is a 60 year old male admitted inpatient on 03/16/16 for decreased LOC, Tardive dyskinesia. Patient payer as [employer]. Patient PCP as MD Ayala. Patient resides at the [facility], . Patient's does not have VA or LTC benefits. Patient denied any previous HHC or SNF history. Patient uses no DME at facility and independent at baseline. Patient denied AD at this time. SW discussed discharge options with patient as a result to increased ambulation with therapy today. Patient aware of inabilities to attend SNF as [employer] will not cover expense. Patient aware and in agreement to discharge back to [facility] with HHC services. HHC choice list offered. Patient states having no HHC preference, choice as [facility]. SW to obtain face to face. SW provided access to [facility]. MIN referral initiated to patient behalf upon previous admission. EMMANUELLE contacted [facility], and spoke to rep who states that patient still being reviewed by pan tank worker and caregiver has yet to be assigned. SW left message for pan tank worker advising them to expedite case if appropriate. EMMANUELLE contacted and left voice mail message for [facility] admissions rep Asim to discuss return with HHC and MIN services at discharge tomorrow. SW to follow. PLAN: Return to the [facility] via [facility] and [facility] for medication management and caregiver support at facility. EMMANUELLE to follow. Mark NAVARRO Addendum: 03/18/16 at 1431 by DAVID AMATO Amended: Links added.
--- NOTE | 2016-03-18 18:28 | NUR ---
PO intake P: Pt previously NPO d/t Tardive Dyskinesia and unsafe swallow. Continues to have dry mouth from frequent licking/lip movement. Pt more alert and oriented today, better communication with staff and requesting to eat. I: Speech performed follow up swallow eval. Diet advanced to pureed 1:1 feed (observation) with nectar thick sips. All pills to be crushed and given in applesauce or pudding. E: Pt had strong PO intake with lunch and dinner and was never witnessed to choke or struggle with a swallow. IV medications transitioned to PO as appropriate.
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
[2016-03-18 19:49] VITALS: BP 110/71; PULSE 63; RESP 17; O2SAT 96
[2016-03-18] MEDS ORDERED: LORazepam 0.5 mg Tablet PO SCH (20:30)
[2016-03-18] MEDS: levETIRAcetam 500 mg Tablet PO SCH (21:04)
--- NOTE | 2016-03-19 03:13 | NUR ---
Neuro Pt alert and appropriately oriented, communicating clearly. Able to take all meds safely, crushed in ice cream. No evidence of aspiration. Observed sleeping most of night, seizure pads in place. Hourly rounding ongoing.
[2016-03-19] MEDS: Dextrose 5% 0.45% NaCl 1,000 ML IV SCH ×2 (04:16→17:42)
[2016-03-19] MEDS: Ampicillin-Sulbactam Inj 1,500 MG in 0.9% Sodium Chloride 50 ML IV SCH (05:08)
[2016-03-19 05:31] VITALS: BP 104/69; PULSE 58; RESP 17; O2SAT 97
[2016-03-19] MEDS: Sodium Chloride NAS 45 mL Spray NASAL SCH ×4 (06:26→21:32)
[2016-03-19] MEDS: Pantoprazole 4 mg/mL 10 mL Inj IVPUSH SCH ×2 (06:26→17:42)
[2016-03-19 06:27] LABS: BASOPHILS % (AUTO) 0.9 % (0-3); EOSINOPHILS % (AUTO) 7.2 % (0-5); MONOCYTES % (AUTO) 16.1 % (4-12); Mean Corpuscular Hemoglobin 31.4 pg (27.0-35.0); Mean Corpuscular Volume 91.7 fL (81-100); NEUTROPHILS % (AUTO) 41.7 % (40-74); Platelet Count 356 bil/L (150-400)
[2016-03-19 06:52] LABS: Magnesium 1.9 mg/dL (1.6-2.6)
[2016-03-19 09:39] VITALS: BP 112/78; PULSE 72; RESP 12; O2SAT 97
[2016-03-19] MEDS: levETIRAcetam 500 mg Tablet PO SCH ×2 (09:45→21:31)
[2016-03-19] MEDS: Fluticasone 0.05% 15 Spray/2 Gm 16 Gm Nasal Spray NASAL SCH (09:48)
[2016-03-19] MEDS ORDERED: Divalproex (QD) 500 mg ER24 Tablet PO SCH (10:05)
--- NOTE | 2016-03-19 11:20 | PCM.PNMED ---
Subjective Date of Service Mar 19, 2016 Subjective No overnight event Patient is so calm, pleasant, alert and oriented Exam Vital Signs Vital Sign - Last Date Time Temp Pulse Resp B/P Pulse Ox O2 Delivery O2 Flow Rate FiO2 03/19/16 09:39 36.9 72 12 112/78 97 Room Air Intake and Output 03/18/16 03/18/16 03/19/16 Cumulative From/Thru 15:00 23:00 07:00 03/16/16 16:08 - 03/19/16 06:24 Intake Total 1490 ml 1177 ml 6388 ml Output Total 600 ml 600 ml 3152 ml Balance 890 ml 577 ml 3236 ml Intake Oral 476 ml 200 ml 676 ml IV Total 1014 ml 977 ml 5712 ml Output Urine Total 600 ml 600 ml 3152 ml # Voids 2 # Bowel Movements 1 1 Exam NAD, comfortably laying down on the bed no JVD, MMM, no LAD RRR, nl s1, s2 no mrg CTAB, no w,c S,ND,NT,normoactive BS+ warm, no edema, pulses 03/13 Neuro:AAOx3, ambulate with normal gait, persistent involuntary lip/tongue movement, less than prior day. PERRLA, EOMI, symmetric face, no uvulae tongue deviation, able shrug shoulders equally able rotate neck equally on both sides IVs and Medications Medications Reviewed: Medications were reviewed in detail Lab and Diagnostics Result Diagram: 03/19/16 0553 03/19/16 0553 Assessment & Plan Active issues and reason for admission #Encephalopathy, recurrent, suspecting breakthough seizure due to non- compliance of AEDs, ongoing tardive dyskinesia also contribute to limited oral intake, VPA level suggestive of non-compliance -pt remained neurologically intact, oriented at baseline -greatly appreciate Dr Frazier input on management --loaded w/ keppra in ER x 1 and now w/ fosphenytoin load x 1 now -continue keppra 500mg bid, added VPA 750mg bid iv, switch to po yesterday, increase to 750 tid given subtx level. -d/c when therapeutic VPA level achieved, daily level #Tardive dyskinesia, POA, from previous long standing anti-psychotics, significantly limit oral intake, failed s/s test on admission, responding to current tx -continue [id number] bid IM, plan is to slowly increment target dose to 3mg bid, increase 0.5mg weekly per -switched ativan 0.5mg iv tid to clonazepam 0.5mg tid -appreciate neuro input #known UTI enterococcus, macrobid 03/13/2016 on dischage, repeat UCX negative. -started unasyn on adm, stop today given UCX result. #nasal sinusitis, continue ocean spray and flonase Chronic issues known prior to admission, present on admission Seizures Parkinsonian symptoms Essential tremors Restless Leg syndrome/arthritis /back injury Schizophrenia Bipolar disorder PTSD, pt currently denied active SI/HI, defer inpatient psychiatric eval COPD/pneumonia Sleep Apnea hiatal hernia GERD Hypertension Hyperlipidemia Cervical fusion Low back surgery --PPI IV, hold home PO meds Diet advance as tolerate per s/s eval DVT prophylaxis lovenox Code full Disposition likely back to his [facility] with additional support due to insurance per , will keep him one more day given VPA level. VTE Mechanical Devices: Intermittant Pneumatic CD Time spent 35 minutes Annamarie Cardenas MD Mar 19, 2016 11:20
[2016-03-19 14:36] VITALS: BP 121/75; PULSE 68; RESP 18; O2SAT 97
[2016-03-19] MEDS: Divalproex Sprinkles 125 mg ER12 Capsule PO SCH ×2 (15:10→21:31)
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
--- NOTE | 2016-03-19 19:16 | NUR ---
Neuro/Activity Assumed pt care at approx 1515. Pt communicating well. alert and oriented x3. Up to chair for dinner via SBA. No s/s of anxiety. Bed down and locked call light w/in reach
[2016-03-19 19:46] VITALS: BP 110/67; PULSE 61; RESP 17; O2SAT 98
[2016-03-20 04:42] VITALS: BP 136/66; PULSE 60; RESP 18; O2SAT 95
[2016-03-20 05:23] LABS: BASOPHILS % (AUTO) 0.8 % (0-3); EOSINOPHILS % (AUTO) 6.8 % (0-5); MONOCYTES % (AUTO) 16.2 % (4-12); Mean Corpuscular Hemoglobin 30.9 pg (27.0-35.0); Mean Corpuscular Volume 93.1 fL (81-100); NEUTROPHILS % (AUTO) 39.4 % (40-74); Platelet Count 351 bil/L (150-400)
--- NOTE | 2016-03-20 05:26 | NUR ---
Activity IV patent and infusing D5 1/2NS at 75 ml/h. Chronic pain 05/19 pt declines PRN medication- no chest pain or SOB. Pt on room air- pt has very active tardive dyskinesia and cpap refused. Pt utilizes urinal and calls appropriately. Seizure pads in place. Care continues
--- NOTE | 2016-03-20 05:29 | NUR ---
Missing Dentures/Hearing aids Pt Mother called for an update, mentioned that he has dentures & hearing aids & eyeglasses that she paid for, she is unsure if they came with him to the hospital or are at his previous residence. She was informed that we document all belongings on admit and do not have these items here. Although none accompanied him, our form was not signed due to his mental status on admit.
[2016-03-20 06:48] LABS: Phosphorus 3.3 mg/dL (2.5-4.9)
[2016-03-20] MEDS: Fluticasone 0.05% 15 Spray/2 Gm 16 Gm Nasal Spray NASAL SCH (08:08)
[2016-03-20] MEDS: Divalproex Sprinkles 125 mg ER12 Capsule PO SCH ×3 (08:09→21:26)
[2016-03-20] MEDS: Sodium Chloride NAS 45 mL Spray NASAL SCH ×4 (08:10→21:30)
[2016-03-20] MEDS: levETIRAcetam 500 mg Tablet PO SCH ×2 (08:11→21:20)
[2016-03-20] MEDS: Pantoprazole 4 mg/mL 10 mL Inj IVPUSH SCH ×2 (08:12→16:48)
[2016-03-20 10:28] VITALS: BP 111/72; PULSE 73; RESP 12; O2SAT 96
--- NOTE | 2016-03-20 10:29 | NUR ---
Spoke with Brenda Tomlinson Cm at [facility] [phone], asked for further review of transfer to SNF. Patient is ready and UR RN addressed more needs than PT to CM at [facility] yesterday. Brenda is forwarding this to her MD for review. Updated PRIMARY THERAPIST Addendum: 03/20/16 at 1348 by LEATHA MARTINEZ CM Patient has been formally denied for Assisted, Brenda was delivering this message to patient. Updated PRIMARY THERAPIST
[2016-03-20 12:09] VITALS: BP 114/80; PULSE 61; RESP 16; O2SAT 97
--- NOTE | 2016-03-20 12:09 | PCM.PNMED ---
Subjective Date of Service Mar 20, 2016 Subjective No overnight event Exam Vital Signs Vital Sign - Last Date Time Temp Pulse Resp B/P Pulse Ox O2 Delivery O2 Flow Rate FiO2 03/20/16 10:28 36.8 73 12 111/72 96 Room Air Intake and Output 03/19/16 03/19/16 03/20/16 Cumulative From/Thru 15:00 23:00 07:00 03/16/16 16:08 - 03/20/16 05:16 Intake Total 1728 ml 200 ml 8316 ml Output Total 930 ml 4082 ml Balance 1728 ml -730 ml 4234 ml Intake Oral 880 ml 200 ml 1756 ml IV Total 848 ml 6560 ml Output Urine Total 930 ml 4082 ml # Voids 2 2 6 # Bowel Movements 2 0 3 Exam NAD, comfortably laying down on the bed no JVD, MMM, no LAD RRR, nl s1, s2 no mrg CTAB, no w,c S,ND,NT,normoactive BS+ warm, no edema, pulses 2/2 Neuro:AAOx3, ambulate with normal gait, persistent involuntary lip/tongue movement, less than prior day. PERRLA, EOMI, symmetric face, no uvulae tongue deviation, able shrug shoulders equally able rotate neck equally on both sides IVs and Medications Medications Reviewed: Medications were reviewed in detail Lab and Diagnostics Result Diagram: 03/20/1644203/20/16442 Assessment & Plan Active issues and reason for admission #Encephalopathy, recurrent, suspecting breakthough seizure due to non- compliance of AEDs, ongoing tardive dyskinesia also contribute to limited oral intake, VPA level suggestive of non-compliance -pt remained neurologically intact, oriented at baseline -greatly appreciate Dr Frazier input on management --loaded w/ keppra in ER x 1 and now w/ fosphenytoin load x 1 now -continue keppra 500mg bid, added VPA 750mg bid iv, switch to po yesterday, increase to 750 tid given subtx level, will load one more 750mg dose per -d/c when therapeutic VPA level achieved, daily level, expect to be in good level tomorrow. #Tardive dyskinesia, POA, from previous long standing anti-psychotics, significantly limit oral intake, failed s/s test on admission, responding to current tx -continue [id number] bid IM, plan is to slowly increment target dose to 3mg bid, increase 0.5mg weekly per -switched ativan 0.5mg iv tid to clonazepam 0.5mg tid -appreciate neuro input #known UTI enterococcus, macrobid 03/13/2016 on dischage, repeat UCX negative. -started unasyn on adm, stop today given UCX result. #nasal sinusitis, continue ocean spray and flonase Chronic issues known prior to admission, present on admission Seizures Parkinsonian symptoms Essential tremors Restless Leg syndrome/arthritis /back injury Schizophrenia Bipolar disorder PTSD, pt currently denied active SI/HI, defer inpatient psychiatric eval COPD/pneumonia Sleep Apnea hiatal hernia GERD Hypertension Hyperlipidemia Cervical fusion Low back surgery --PPI IV, hold home PO meds Diet advance as tolerate per s/s eval DVT prophylaxis lovenox Code full Disposition likely back to his [facility] with additional support due to insurance per , will keep him one more day given VPA level. VTE Mechanical Devices: Intermittant Pneumatic CD Time spent 35 minutes Annamarie Cardenas MD Mar 20, 2016 12:09
[2016-03-20] MEDS ORDERED: Divalproex Sprinkles 125 mg ER12 Capsule PO ONE (14:35)
--- NOTE | 2016-03-20 14:37 | NUR ---
Social Work Continued Discharge Planning: In attempt to find SNF placement for patient, patient denied by [facility] at this time. [facility] swing bed not in network with [facility] Medicare for acceptance. Patient aware of above denial. Plan remains as return to [facility], . Patient able to return back to [facility] upon discharge with arrangements of [facility] services via [facility]. SW has in place for [facility] Rn for medication management, social services, PT, and ST services. Access provided and face to face provided to [facility] rep Daniel. SW spoke to MIN Chow, [phone] who to follow patient at [facility] for caregiver services/AFH placement. Patient in agreement to plan. No other needs identified at this time. SW to follow PLAN: Return back to [facility] with [facility] services and MIN for caregiver services at facility. Patient denied by [facility] for SNF placement Mark NAVARRO
--- NOTE | 2016-03-20 19:15 | NUR ---
Pain, Tardive Dyskinesia Patient states that he continues to have some baseline pain this shift, declines any pain medication. Patient continues to exhibit tardive dyskinesia, with movement in the face and tongue. Patient using urinal to void, care is ongoing.
[2016-03-20 19:43] VITALS: BP 105/67; PULSE 62; RESP 20; O2SAT 96
[2016-03-21 00:11] VITALS: BP 121/78; PULSE 62; RESP 20; O2SAT 98
[2016-03-21 04:40] VITALS: BP 128/82; PULSE 61; RESP 20; O2SAT 94
[2016-03-21 05:28] LABS: BASOPHILS % (AUTO) 0.6 % (0-3); EOSINOPHILS % (AUTO) 5.3 % (0-5); MONOCYTES % (AUTO) 17.5 % (4-12); Mean Corpuscular Hemoglobin 31.2 pg (27.0-35.0); Mean Corpuscular Volume 92.4 fL (81-100); NEUTROPHILS % (AUTO) 41.1 % (40-74); Platelet Count 407 bil/L (150-400)
[2016-03-21 05:49] LABS: Phosphorus 3.3 mg/dL (2.5-4.9)
--- NOTE | 2016-03-21 05:51 | NUR ---
Activity Pt aroused from sleep and is slow to form sentences (r/t tardive dyskinesia), difficulty speaking but can anser Y/N. Nods 'Y' to feeling SOB and put on 1L nc w/CPOX; SaO2 at 98%. Within 10 minutes he is better able to communicate, not completely to baseline (AOx3) until 2330. Pt has chronic pain of neck/back rated 4/10, declines PRN medication. Saline lock patent. Po meds given in ice cream, this RN observed student nurse performing these duties. No further SOB or increase in pain or discomfort this shift, pt uses urinal and calls appropriately. Care continues Mother (Shalini) called regarding placement in retirement care VS fpc, insurance appeals, and her inability to oversee his healthcare (due to her reduced vision), also Aunt Izabela's unwillingness to take on this role.
[2016-03-21] MEDS: Sodium Chloride NAS 45 mL Spray NASAL SCH ×3 (06:12→14:59)
[2016-03-21] MEDS ORDERED: DIVA125C10 PO ×2 (07:27→08:21)
[2016-03-21] MEDS ORDERED: KEP500TA PO ×2 (07:27→08:21)
[2016-03-21] MEDS ORDERED: KLO5T PO ×2 (07:27→08:21)
[2016-03-21] MEDS ORDERED: BENZ1TAB7 PO ×2 (07:27→08:21)
[2016-03-21] MEDS: Pantoprazole 4 mg/mL 10 mL Inj IVPUSH SCH (08:26)
[2016-03-21] MEDS: Fluticasone 0.05% 15 Spray/2 Gm 16 Gm Nasal Spray NASAL SCH (08:27)
[2016-03-21] MEDS: Divalproex Sprinkles 125 mg ER12 Capsule PO SCH ×2 (08:29→14:59)
[2016-03-21] MEDS: levETIRAcetam 500 mg Tablet PO SCH (08:30)
--- NOTE | 2016-03-21 08:34 | PCM.DIMED ---
Discharge Instructions Date of Service Mar 21, 2016 Dates of Hospitalization Mar 16, 2016 at 16:53 Discharge Diagnosis Discharge Diagnosis Acute encephalopathy due to postictal after breakthrough seizure in the setting of med-noncompliance Devere tardive dyskinesia Intolerability of diet and medication due to severe tardive dyskinesia Medication Instructions take Cogentin 2mg twice a day take Clonazepam 0.5mg three times a day take Keppra 500mg twice a day take Depakote Sprinkles 750mg three times a day Instruction for childcare worker If your lip movement not controlled, you can increase Cogentin to 2.5mg twice a day for a week up to 3mg twice a day in a week after. You can also increase Clonazepam to 1mg three times per day. Please avoid rapid increment if patients experience drowsiness or confusion. Further adjustment will be made by Neurology clinic in the future. Diet No restrictions Activity No restrictions Patient Instructions You were hospitalized with confusion, possibly after seizure, found to have severe with oral movement. He remained stable with new anti-seizure medicine regimen. Instruction for caregiver> Please follow medicine instruction as above Please note that patient's oral intake and medication is paramount to prevent future seizure, please control oral movement from tardive dyskinesia so that pt can continue to be compliant to his diet and medication. Please note pt was only safe for puree diet, reassess for general diet only if pt seems more tolerable in the future Follow-up plan Please follow up with in 2weeks for further medication adjustment Follow-up Provider: Dayne Frazier MD Follow-up with PCP in: 2 weeks Annamarie Cardenas MD Mar 21, 2016 08:33
--- NOTE | 2016-03-21 11:29 | NUR ---
Arranged [employer] for 1230 cone picker at the main entrance. Spoke with THERAPEUTIC RECREATION DIRECTOR linen supervisor and she approved us to comp taxi for ride back to [facility] in [place].
--- NOTE | 2016-03-21 15:11 | NUR ---
Social Work Discharge: In attempt to find SNF placement for patient, patient denied by [facility] at this time. [facility] [place] [facility] Medicare for acceptance. Patient aware of above denial. Plan remains as return to [facility], . SW spoke to [facility] rep Sneha who states that patient accepted back upon discharge. SW advised admissions rep that arrangements of HHC services via [facility] in place. SW spoke to [facility] rep Daniel who was made aware. SW has in place for [facility] Rn for medication management, social sciences chair, PT, and ST services. SW spoke to [facility] rep Geraldo, [phone] who to follow patient at [facility] for caregiver services/AFH placement. Assessment to take place on Thursday. Patient in agreement to plan. UR specialist coordinated transport home via [employer] at 4:15pm. EMMANUELLE contacted [facility], [phone] and spoke to rep Yelitza who states that [facility] aware of case and patient case reference number as [id number]. Yelitza states that [facility]PS has communicated with [facility] and aware of placement concerns. APS to follow up after [facility] eval at the [facility] to determine if placement options able to be arranged for patient for an AFH. APS to step in and facilitate placement options with [facility] in the community. If patient readmitted SW please refer to [facility] reference number. No other needs identified at this time. PLAN: Return back to [facility] with [facility] services and [facility] for caregiver services at facility. [facility]PS aware. Patient denied by [facility] for SNF placement Mark NAVARRO
--- NOTE | 2016-03-21 15:58 | PCM.DC.MED ---
Discharge Summary Date of Service Mar 21, 2016 Dates of Hospitalization Date of Hospital Admission Mar 16, 2016 at 16:53 Date of Discharge: Mar 21, 2016 Providers: Admitting Physician: Dequan Alas MD Primary Care Physician: Dayne Ayala Attending Physician: Dequan Alas MD Diagnosis at Time of Discharge Diagnosis at Time of Discharge acute on this admission #Acute encephalopathy due to postictal after breakthrough seizure in the setting of med-noncompliance #severe tardive dyskinesia #Intolerability of diet and medication due to severe tardive dyskinesia Chronic issues known prior to admission, present on admission, remained stable nasal sinusitis, continued ocean spray and flonase Seizures Parkinsonian symptoms Essential tremors Restless Leg syndrome/arthritis /back injury Schizophrenia Bipolar disorder PTSD, pt currently denied active SI/HI, defer inpatient psychiatric eval COPD/pneumonia Sleep Apnea hiatal hernia GERD Hypertension Hyperlipidemia Cervical fusion Low back surgery Consultations Neurology Procedures XRay, CTs & MRIs PROCEDURE: CT BRAIN WITHOUT CONTRAST ([id number]) INDICATIONS: 60-year-old male with tardive dyskinesia. TECHNIQUE: Noncontrast 4.5 mm thick angled axial sections acquired from the foramen magnum to the vertex, with coronal reformats. COMPARISON: [facility], CT, CT BRAIN WO CON, 03/07/2016, 19:59. [facility], CT, CT BRAIN WO CON, 03/06/2016, 15:30. [facility], CT, CT BRAIN WO CON, 12/30/2015, 7:28. FINDINGS: Image quality: Excellent. CSF spaces: Basal cisterns are patent. No extra-axial fluid collections. Ventricles are normal in size and shape. Brain: No midline shift. No intracranial masses or hemorrhage. Gutierrez-white matter interface is normal. Skull and face: Calvarium and visualized facial bones are intact, without suspicious lesions. Sinuses: Mild bilateral maxillary sinus mucosal thickening is unchanged. There is persistent moderate ethmoid sinus mucosal thickening. Mastoids appear clear. IMPRESSION: No acute intracranial abnormalities. Findings suggestive of maxillary and ethmoid sinusitis. Dictated by: David Conn M.D. on 03/16/2016 at 20:51 Approved by: David Conn M.D. on 03/16/2016 at 20:55 Other Diagnostics EEG PATIENT: FLAQUITO BIGGS : 1955 MR#: [id number] ADMIT: 03/16/2016 JOB ID: [id number] DATE: 03/18/2016 HISTORY: The patient is a 60-year-old man with a history of tardive dyskinesia, atypical Parkinson's and transient spells as well as generalized tonic-clonic seizures. TECHNICAL DESCRIPTION: This digital EEG was recorded using 25 scalp and ear, and two EKG electrodes. It was reviewed in bipolar and referential montages following reformatting of the 10-20 International Electrode Placement System. During the recording, the patient was noted to be awake, drowsy, and asleep. The background was composed of an 8.5 hertz, 10-20 microvolt symmetrical and reactive posterior dominant rhythm that attenuated with eye opening. The rest of the background was composed of low voltage faster frequencies. There was abundant frontally predominant beta which appeared bilaterally throughout this recording. The tongue and lip movements demonstrated no electrocortical correlation. There were no focal, lateralized or epileptiform discharges noted. There were no seizures seen. There was abundant myogenic movement artifact. Hyperventilation was not performed. Photic stimulation from 1-30 hertz did not elicit any photic driving response. Sleep was characterized by the attenuation of the alpha rhythm and the appearance of symmetrical vertex waves, heralding stage 1 of sleep. This is followed by the development of symmetrical sleep spindles heralding stage 2 of sleep. He did appear restless throughout this study except when asleep. The EKG rhythm strip revealed a heart rate of 60-80 beats per minute with no apparent arrhythmias. IMPRESSION: This EEG performed in the awake, drowsy, and asleep states is abnormal. The frontally predominant bilateral beta activity is suggestive of medication affect. The rest of this electroencephalogram was within normal limits. Clinical correlation is advised. Brief History H&P performed by on 03/16 60-year-old male from adult family home, did not refill his seizure medications (all paper scripts still in [facility] discharge folder) AFTER last admission 03/06/2016 -03/13/2016 and found on bed, brought in today after he was incoherently slurring speech and crying on the phone to his mother who had her fdc home call EMS. EMS noted chewing/oral repetitive movements, s/p benadryl. ER doctor spoke with neurologist/Karin who recommended resuming benztropine for the tardive dyskinesia but while responsive and nods with abdominal tenderness per ER doctor , not safe to swallow, then loaded w/ keppra IV. In the ER, Keppra, 156/91, 90% room air, 36.7, urine tox screen positive for barbiturates, negative for others negative for benzo, urine output 800 mL, straight cath 400 mL, normal saline 250cc In the mensah, incoherent, attempts to talk especially when told that his mother is on the phone, ongoing repetitive oral movements not regular rhythm. Hospital Course #Encephalopathy, recurrent, suspected breakthough seizure due to non-compliance of AEDs, VPA level suggestive of non-compliance. it is thought that severe tardive dyskinesia contribute to limited oral intake, patient was loaded w/ keppra in ER x 1 and fosphenytoin load x 1, patient was seizure-free throughout the hospitalization, eventually AED optimized to keppra 500mg bid, VPA 750mg tid per . VPA level reached therapeutic, repeat EEG was unremarkable. Patient will be followed up by Dr. henderson in the clinic. #Tardive dyskinesia, POA, this is acute on chronic problem, due to from previous long standing anti-psychotics, pt failed s/s test on admission, but responded to [id number] bid IM, later switched to oral once sx subsided, plan is to slowly increment target dose to 3mg bid, increase 0.5mg weekly per , also tried ativan 0.5mg iv tid, later switched to clonazepam 0.5mg tid. Symptoms continued but stable upon d/c #known UTI enterococcus, macrobid 03/13/2016 on dischage, repeat UCX negative. Patient was initially on unasyn on adm, stopped given UCX result. #nasal sinusitis, continued ocean spray and flonase Chronic issues known prior to admission, present on admission, remained stable Seizures Parkinsonian symptoms Essential tremors Restless Leg syndrome/arthritis /back injury Schizophrenia Bipolar disorder PTSD, pt currently denied active SI/HI, defer inpatient psychiatric eval COPD/pneumonia Sleep Apnea hiatal hernia GERD Hypertension Hyperlipidemia Cervical fusion Low back surgery dispo: There was a concern about his facility mistreating patient, pt was appropriate for high level of care given the difficulty all medication compliance, However, pt is going back to same the facility as pt will receive more support, service which help manage his medication. Exam Vital Signs (Last) Date Time Temp Pulse Resp B/P Pulse Ox O2 Delivery O2 Flow Rate FiO2 03/21/16 04:40 36.3 61 20 128/82 94 Room Air Exam NAD, comfortably laying down on the bed no JVD, MMM, no LAD RRR, nl s1, s2 no mrg CTAB, no w,c S,ND,NT,normoactive BS+ warm, no edema, pulses 2/2 Neuro:AAOx3, ambulate with normal gait, persistent involuntary lip/tongue movement, less than prior day. PERRLA, EOMI, symmetric face, no uvulae tongue deviation, able shrug shoulders equally able rotate neck equally on both sides Test 03/16/16 15:40 03/16/16 16:00 03/16/16 22:10 03/17/16 04:55 Levetiracetam (Keppra) Level None detectedug/mL Urine Color Yellow (YELLOW) Urine Appearance Hazy (CLEAR,HAZY) Urine pH 5.5 (5.0-8.0) Urine Specific Panacea 1.031 (1.003-1.035) Urine Protein Negativemg/dL (NEG,TRACE) Urine Glucose (UA) Negativemg/dL (NEGATIVE) Urine Ketones 15mg/dL (NEGATIVE) Urine Occult Blood Trace (NEGATIVE) Urine Nitrite Negative (NEGATIVE) Urine Bilirubin Negative (NEGATIVE) Urine Urobilinogen Normalmg/dL (NORMAL) Urine Leukocyte Esterase Negative (NEGATIVE) Urine RBC 0-2/hpf (0-2) Urine WBC 6-10/hpf (0-5) Urine Epithelial Cells Few/hpf (NONE-MOD) Urine Crystals None seen (NONE SEEN) Urine Bacteria Few/hpf (NONE-FEW) Urine Hyaline Casts None/lpf (NONE) Urine Granular Casts None seen (NONE SEEN) Urine Waxy Casts None seen (NONE SEEN) Urine Red Blood Cell Casts None seen (NONE SEEN) Urine White Blood Cell Casts None seen (NONE SEEN) Urine Mucus Present (None Seen) Urine Trichomonas None seen (NONE SEEN) Urine Yeast None (NONE SEEN) Urinalysis Comment None Urine Culture Reflexed Indicated Total Creatine Kinase 40U/L (21-232) Creatine Kinase MB 1.0ng/mL (0.0-10.4) Creatine Kinase MB % % (0.0-5.0) Troponin T 0.010ug/L (0.0-0.011) Vitamin B12 Level 1078pg/mL (211-946) Salicylates Level 4.6ug/mL (30-250) Alcohol, Quantitative < 10mg/dL (0-10) Test 03/20/16 04:43 03/21/16 05:04 Procalcitonin 0.02ng/mL (0.00-0.08) White Blood Count 12.6th/mm3 (3.8-10.1) Red Blood Count 4.36mil/mm3 (4.40-5.80) Hemoglobin 13.6g/dL (13.8-17.2) Hematocrit 40.3% (41.0-50.0) Mean Corpuscular Volume 92.4fL (81-100) Mean Corpuscular Hemoglobin 31.2pg (27.0-35.0) Mean Corpuscular Hemoglobin Concent 33.7% (32.0-37.0) Red Cell Distribution Width 14.3% (12.3-15.4) Platelet Count 407bil/L (150-400) Neutrophils (%) (Auto) 41.1% (40-74) Lymphocytes (%) (Auto) 33.7% (14-46) Monocytes (%) (Auto) 17.5% (4-12) Eosinophils (%) (Auto) 5.3% (0-5) Basophils (%) (Auto) 0.6% (0-3) Sodium Level 141mEq/L (134-144) Potassium Level 4.4mEq/L (3.5-5.2) Chloride Level 105mEq/L (97-108) Carbon Dioxide Level 21mmol/L (18-29) Blood Urea Nitrogen 6mg/dL (8-27) Creatinine 0.59mg/dL (0.76-1.27) Estimat Glomerular Filtration Rate 149mL/min (>59) Glucose Level 96mg/dL (60-99) Calcium Level 8.0mg/dL (8.5-10.1) Phosphorus Level 3.3mg/dL (2.5-4.9) Magnesium Level 2.0mg/dL (1.6-2.6) Total Bilirubin 0.2mg/dL (0.0-1.2) Aspartate Amino Transf (AST/SGOT) 21U/L (0-50) Alanine Aminotransferase (ALT/SGPT) 16U/L (0-44) Alkaline Phosphatase 76U/L (25-160) Total Protein 5.7g/dL (6.4-8.4) Albumin 3.2g/dL (3.4-5.0) Valproic Acid (Depakene) Level 50ug/mL (50-125) Discharge Medications Discharge Medications Benztropine Mesylate (Benztropine Mesylate) 1 Mg Tablet 1 MG PO BID (Reported) Benztropine Mesylate (Benztropine Mesylate) 1 Mg Tablet 2 MG PO BID Prescribed by: ANNAMARIE BUENROSTRO MD Clonazepam (Clonazepam) 0.5 Mg Tablet 0.5 MG PO TID Prescribed by: ANNAMARIE BUENROSTRO MD Divalproex Sprinkles (Divalproex Sprinkles) 125 Mg Cap.sprink 750 MG PO TID Prescribed by: ANNAMARIE BUENROSTRO MD Fluoxetine (Fluoxetine) 20 Mg Capsule 60 MG PO HS (Reported) Levetiracetam (Keppra) 500 Mg Tablet 500 MG PO BID Prescribed by: ANNAMARIE BUENROSTRO MD Mirtazapine (Mirtazapine) 15 Mg Tablet 7.5 MG PO HS (Reported) Propranolol HCl (Propranolol HCl) 20 Mg Tablet 20 MG PO DAILY (Reported) Ranitidine (Ranitidine) 150 Mg Capsule 150 MG PO BID (Reported) As needed Lorazepam (Lorazepam) 0.5 Mg Tablet 0.5-1 MG PO BID PRN PRN For Seizure ( Reported) Additional med instructions take Cogentin 2mg twice a day take Clonazepam 0.5mg three times a day take Keppra 500mg twice a day take Depakote Sprinkles 750mg three times a day 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 You can also increase Clonazepam to 1mg three times per day. Please avoid rapid increment if patients experience drowsiness or confusion. Further adjustment will be made by Neurology clinic in the future. Followup Plan Disposition: Sorin Chester with [facility] services and [facility] for caregiver services at facility Follow-up plan Please follow up with in 2weeks for further medication adjustment Discharge Diet: No restrictions Discharge Activity: No restrictions Patient Instructions You were hospitalized with confusion, possibly after seizure, found to have severe with oral movement. He remained stable with new anti-seizure medicine regimen. Instruction for caregiver> Please follow medicine instruction as above Please note that patient's oral intake and medication is paramount to prevent future seizure, please control oral movement from tardive dyskinesia so that pt can continue to be compliant to his diet and medication. Please note pt was only safe for puree diet, reassess for general diet only if pt seems more tolerable in the future Follow-up Provider: Dayne Henderson MD Follow-up with PCP in: 2 weeks Time spent 65min Annamarie Buenrostro MD Mar 21, 2016 15:58
--- NOTE | 2016-03-21 16:59 | NUR ---
Discharge Orders for discharge were received. The patient was made aware of the plan to discharge and was agreeable to go. The patient was given information on his diagnosis and treatment, follow up instructions, signs and symptoms to be aware of, diet consistency limitations, instructions and supplies for thickening liquids, medication information and his newly filled medications. The patient signified understanding of this information and his asymptomatic IV was removed intact. The patient was then dressed in his own clothing and his belongings were gathered. The patient then ambulated to a wheelchair, which wheeled him to the main entrance where he ambulated into a private taxi. At the time of discharge the patient was alert and oriented, with no complaints of chest pain, seizures, shortness of breath or other difficulties. Patient advised to call 911 in the event of emergency or other troubles and to consider a [facility] type service if possible. Home health care set up by social worker psychiatric.
--- NOTE | 2016-03-31 14:52 | NUR ---
Social Work Note--Population RN T/C D/A: Pt followed by the [facility]. RN spoke with Home Health who can no longer follow the patient in the community due to safety concerns. Patient has been assessed by Home and Community services with Mary Anne Soria ([phone]) as [facility] assigned Molder Hand. Provided the contact information to the Population Health RN. Informed that pts GH MCR will not cover a SNF. Will have to assess on each admission. Patient qualifies and needs an Adult Family Home. Explained process. PLAN: ORTHOPAEDIC TECHNOLOGIST to coordinate with Population Health RN ext. [phone] upon admission. Discuss with patient the only option being [facility]. RUTH Palma
== END 2016-03-21 16:08 | disposition home health service (06) | DRG 100 ==
LOC: EDBD 15:22 → SED 15:22 → OSC 16:53 → OBSVTOIN 16:53
PROVIDERS: ADMIT Urology; ATTEND Urology
PROC: 4A033R1 Measurement of Arterial Saturation, Peripheral, Percutaneous Approach (ICD-10-PCS; principal; 2016-03-16)
PROC: 4A10X4Z Monitoring of Central Nervous Electrical Activity, External Approach (ICD-10-PCS; 2016-03-18)
DX: G40.909 Epilepsy, unspecified, not intractable, without status epilepticus (principal); G93.40 Encephalopathy, unspecified; G20 Parkinson's disease; F31.9 Bipolar disorder, unspecified; J44.9 Chronic obstructive pulmonary disease, unspecified; I10 Essential (primary) hypertension; E78.5 Hyperlipidemia, unspecified; J32.8 Other chronic sinusitis; F43.10 Post-traumatic stress disorder, unspecified; G25.81 Restless legs syndrome; G24.01 Drug induced subacute dyskinesia; Z87.891 Personal history of nicotine dependence; Z91.19 Patient's noncompliance with other medical treatment and regimen

== ENCOUNTER 2016-03-27 17:05 | Observation (INO) | payer MEDICARE ==
[~2016-03-27] VITALS: Ht 177.8 cm; Wt 91.5 kg
[~2016-03-27 17:05] MED LIST changes: +DIVA125C10 PO; -DIVA250T2 PO; +KLO5T PO; -MELA3TAB35 PO; -NITR100 PO; -TRIH2TAB2 PO
[2016-03-27 17:20] VITALS: BP 133/85; PULSE 64; RESP 15; O2SAT 100
[2016-03-27 17:35] LABS: BASOPHILS % (AUTO) 0.4 % (0-3); EOSINOPHILS % (AUTO) 3.5 % (0-5); MONOCYTES % (AUTO) 12.8 % (4-12); Mean Corpuscular Hemoglobin 31.3 pg (27.0-35.0); Mean Corpuscular Volume 92.3 fL (81-100); NEUTROPHILS % (AUTO) 40.2 % (40-74); Platelet Count 370 bil/L (150-400)
--- NOTE | 2016-03-27 17:35 | ED.REPORT ---
HPI-Seizure Date of Service Mar 27, 2016 ED Provider: Luc Kim MD Patient is a 60 year old male with a history of seizures and Parkinson's who presents to the ED via EMS complaining of dysphagia. He describes his symptoms as a spasm from his belly to his chin. He denies recent falls, trauma, fever, or any other symptoms. He has been taking medications as prescribed. He has been seen in the department for similar symptoms recently. He was discharged 6 days ago after being hospitalized for similar symptoms and altered mental status. He was given 25 mg of Benadryl by paramedics. Nursing Notes Stated Complaint: SWALLOWING DIFFICULTIES Chief Complaint: General Complaint Nursing Notes Reviewed: Yes ([employer], [employer] not reconciled) Allergies: Coded Allergies: haloperidol (Verified Allergy, Severe, Extrapyramidal Symptoms, 09/08/15) diazepam (Verified Adverse Reaction, Intermediate, sedation at low doses. , 09/08/15) Scheduled Benztropine Mesylate (Benztropine Mesylate) 1 Mg Tablet 1 MG PO BID Benztropine Mesylate (Benztropine Mesylate) 1 Mg Tablet 2 MG PO BID Clonazepam (Clonazepam) 0.5 Mg Tablet 0.5 MG PO TID Divalproex Sprinkles (Divalproex Sprinkles) 125 Mg Cap.sprink 750 MG PO TID Fluoxetine (Fluoxetine) 20 Mg Capsule 60 MG PO HS Levetiracetam (Keppra) 500 Mg Tablet 500 MG PO BID Mirtazapine (Mirtazapine) 15 Mg Tablet 7.5 MG PO HS Propranolol HCl (Propranolol HCl) 20 Mg Tablet 20 MG PO DAILY Ranitidine (Ranitidine) 150 Mg Capsule 150 MG PO BID Scheduled PRN Lorazepam (Lorazepam) 0.5 Mg Tablet 0.5-1 MG PO BID PRN PRN For Seizure General Time Seen by Provider: 17:30 Chief Complaint Chief Complaint: Other (Dysphagia) Hx Obtained From: Patient Arrived By: Ambulance Similar Sx Previous: Yes Past Medical History Past Medical History Notes: PCP: Dr. Palm Neurologist: Dr. Henderson Patient March 06 through 03/13/2016, and then again March 16 through 03/21/2016 with a diagnosis of acute encephalopathy secondary to post ictal status following breakthrough seizures in the setting of medication noncompliance, along with a history of severe tardive dyskinesia, and swallowing difficulty, recent enterococcal UTI, treated with negative UA in follow-up Past Medical History Seizures Chronic Tardive dyskinesia Parkinson's Schizophrenia Bipolar disorder PTSD COPD Hypertension Hyperlipidemia Sleep Apnea Essential tremors Restless Leg syndrome Past Surgical History Cervical fusion Low back surgery Tonsillectomy Family History Father, at 82 from emphysema Smoking History Former Smoker Social History Resides at [facility] Alcohol Use: Denies alcohol use Drug Use: Denies drug use Other Social History: Local resident Ambulatory Status Independent Review of Systems +trouble speaking Constitutional: Denies: Fever Neurologic: Denies: Headache Complete sys rev & neg: except as marked. GI: Reports: Dysphagia Physical Exam Initial Vital Signs Vital Signs (First) Date Time Temp Pulse Resp B/P Pulse Ox O2 Delivery O2 Flow Rate FiO2 03/27/16 17:20 36.6 64 15 133/85 100 Room Air Initial VS: Reviewed Head / Eyes: Atraumatic, Normocephalic, PERRL Abdomen / GI: Non-tender Skin: Warm, Dry Psychiatric: Mood/affect normal, Normal thought content General/Constitutional: Awake, Alert, Well developed No trauma. Neck: Atraumatic Respiratory / Chest: No respiratory distress Cardiovascular: Heart rate NL, Regular rhythm, Heart sounds NL Neurologic: Oriented X3 severe tardive dyskinesia and dystonia. answering questions and following commands Interpretation & Diagnostics Lab Results Interpretation Result Diagram: 03/27/16 1732 03/27/16 1732 Test 03/27/16 17:28 03/27/16 17:32 03/27/16 19:56 Hold Purple Top Tube Received (Received) Hold Blue Top Tube Received (Received) Hold Red Top Tube Received (Received) Hold [place] Top Tube Received (Received) White Blood Count 12.1th/mm3 (3.8-10.1) Red Blood Count 4.96mil/mm3 (4.40-5.80) Hemoglobin 15.5g/dL (13.8-17.2) Hematocrit 45.8% (41.0-50.0) Mean Corpuscular Volume 92.3fL (81-100) Mean Corpuscular Hemoglobin 31.3pg (27.0-35.0) Mean Corpuscular Hemoglobin Concent 33.8% (32.0-37.0) Red Cell Distribution Width 14.3% (12.3-15.4) Platelet Count 370bil/L (150-400) Neutrophils (%) (Auto) 40.2% (40-74) Lymphocytes (%) (Auto) 42.8% (14-46) Monocytes (%) (Auto) 12.8% (4-12) Eosinophils (%) (Auto) 3.5% (0-5) Basophils (%) (Auto) 0.4% (0-3) Prothrombin Time 10.6sec (8.1-12.5) Prothromb Time International Ratio 0.99ratio Sodium Level 137mEq/L (134-144) Potassium Level 4.6mEq/L (3.5-5.2) Chloride Level 99mEq/L (97-108) Carbon Dioxide Level 24mmol/L (18-29) Blood Urea Nitrogen 13mg/dL (8-27) Creatinine 0.69mg/dL (0.76-1.27) Estimat Glomerular Filtration Rate 124mL/min (>59) Glucose Level 81mg/dL (60-99) Calcium Level 9.1mg/dL (8.5-10.1) Magnesium Level 2.1mg/dL (1.6-2.6) Total Bilirubin < 0.2mg/dL (0.0-1.2) Aspartate Amino Transf (AST/SGOT) 26U/L (0-50) Alanine Aminotransferase (ALT/SGPT) 18U/L (0-44) Alkaline Phosphatase 85U/L (25-160) Total Protein 7.0g/dL (6.4-8.4) Albumin 3.9g/dL (3.4-5.0) Lipase 30U/L (13-60) Urine Color Yellow (YELLOW) Urine Appearance Clear (CLEAR,HAZY) Urine pH 6.5 (5.0-8.0) Urine Specific [place] <1.005 (1.003-1.035) Urine Protein Negativemg/dL (NEG,TRACE) Urine Glucose (UA) Negativemg/dL (NEGATIVE) Urine Ketones Negativemg/dL (NEGATIVE) Urine Occult Blood Negative (NEGATIVE) Urine Nitrite Negative (NEGATIVE) Urine Bilirubin Negative (NEGATIVE) Urine Urobilinogen Normalmg/dL (NORMAL) Urine Leukocyte Esterase Negative (NEGATIVE) Urine RBC 0-2/hpf (0-2) Urine WBC 0-5/hpf (0-5) Urine Epithelial Cells Occasional/hpf (NONE-MOD) Urine Crystals None seen (NONE SEEN) Urine Bacteria None/hpf (NONE-FEW) Urine Hyaline Casts None/lpf (NONE) Urine Granular Casts None seen (NONE SEEN) Urine Waxy Casts None seen (NONE SEEN) Urine Red Blood Cell Casts None seen (NONE SEEN) Urine White Blood Cell Casts None seen (NONE SEEN) Urine Mucus None seen (None Seen) Urine Trichomonas None seen (NONE SEEN) Urine Yeast None (NONE SEEN) Urinalysis Comment None Urine Culture Reflexed Not indicated Lab Results Interpretation: CBC trace leukocytosis + CMP normal UA negative Re-Eval/Medical Decision Med Decision/Clinical Course This is a 60-year-old male who has chronic tardive dyskinesia, also has a chronic seizure disorder, has been much in the last several weeks in the hospital with seizure activity, and is followed by Dr. henderson. Records indicate that he lives at a "adult family home, but it turns out he lives at the [facility] which is a [place] care [place], and does not have any education paraprofessional R oversight. They can complain of a sense of muscle stiffness and increased mouth movement. He ultimately called EMS, but has been symptomatic and apparently trying to get help for some time before he could figure out how to call for help. Medics administered 25 of Benadryl en route, but he still profoundly symptomatic on arrival, and appears to be having dystonia. He received an additional 25 mg of Benadryl, with resolution of his symptoms. He did not have overt seizure activity clinically for me. He feels it is back to baseline, but he still has some ongoing tardive dyskinesia at baseline. I do not get any additional complaints. Over, I then received a phone call from the mother who indicates that the patient is not safe being discharged back to the facility-she indicates he has no medical oversight, he really cannot take care of himself, and that there is no one watching her supervising him. In upon investigation, this is corrected to [facility] that is resides in, and it certainly seems entirely suboptimal. The mother is adamantly requesting the patient be hospitalized, well better supervisory situation can be identified. History seems to me on evaluation is hard pressed to believe this patient can safely care for herself given his complex medical comorbidities, medication or compartments-is a bit unclear if he is been able to self medicate since his discharge. He told me yes , but is initially under the impression that someone was over sitting medications, but it means I do not know if he is truly been compliant-which might itself argue for the dystonia as a cause of his not been receiving his Cogentin. Not aware of new medicines, and do not have a specific cause for the increase of dystonia otherwise. At this point, the mother is again very insistent, does not think he is safe for discharge, and I to understand the concern about discharging this patient into a non-supervised environment, particularly given multiple [id number] visits, it would explain the noncompliance issue that led to the second visit. The DISPATCH CLERK was consulted. This point the patient is being admitted to the hospitalist service, while placement options are reviewed. Labs are otherwise normal except for trace nonspecific leukocytosis. He has no clinical findings of infection. No findings of trauma. Again the patient thinks he is back to baseline at time of admission. Source of Hx: Old records Re-Evaluation/Progress #1: Time of Eval: 19:20 )( Re-Eval Neurologic Exam: Alert Re-Evaluation/Progress Note: Patient requested that EDMD talk to his mother. She is concerned and wants pt to be admitted because there is not supervision at his adult family home ([facility], [facility]). She has been [facility] because she believes that his living situation is unsafe. She is insistant that he is not safe to be discharged home. Mother is Radha Horowitz [facility] [phone] Mother is 80 year old blind woman and cannot drive up to come get him. Re-Evaluation/Progress #2: Time of Eval: 20:30 )( Re-Eval Neurologic Exam: Alert Re-Evaluation/Progress Note: Discussed plan for admission. Patient understands and agrees with plan. All questions addressed at this time. Consultation : Referral / Consult Name: Abimbola Shaw DO Consulted With: Hospitalist Call Returned at: 20:24 Water Purifier Operator: Will see patient, Agrees with eval, Agrees with plan, Accepts admit Note: Discussed patients case. Accepts admit. Differential Diagnosis: Positive: Tic disorder (chronic tardive dyskinesia), Negative: Anticonvulsant withdrawal, Eclampsia, Hyponatremia, Intracranial bleed, Intracranial mass/lesion, Meningitis Counseled Regarding: Diagnosis, Lab results, Need for admission Safety Concerns: Unable to care for self, Cognitive impairment, No education paraprofessional for patient Discharge & Departure Impression: Primary Impression: Dystonic drug reaction Additional Impression: Tardive dyskinesia Disposition: ADMITTED TO HOSPITAL Referrals: Dayne Ayala (PCP) Scribe Attestation Portions of this note were transcribed by Maria Alejandra Antonio. I, Dr. Kim personally performed the history, physical exam and medical decision-making; I reviewed and confirmed the accuracy of the information in the transcribed note. Signed by: Maria Alejandra Antonio 03/28/2016, 0009 copies to: Dayne Ayala Matthew F MD Mar 27, 2016 17:35 MARIA ALEJANDRA ANTONIO Mar 27, 2016 17:52
[2016-03-27 17:50] LABS: INR 0.99 ratio
[2016-03-27 17:55] LABS: Lipase 30 U/L (13-60); Magnesium 2.1 mg/dL (1.6-2.6)
[2016-03-27 18:44] VITALS: BP 120/81; PULSE 66; RESP 15; O2SAT 98
[2016-03-27 19:31] VITALS: BP 120/70; PULSE 96; O2SAT 98
[2016-03-27 20:14] LABS: APPEARANCE,URINE CLEAR (CLEAR,HAZY); COLOR,URINE YELLOW (YELLOW); OCCULT BLOOD,URINE NEGATIVE (NEGATIVE); PH,URINE 6.5 (5.0-8.0); UROBILINOGEN,URINE NORMAL (NORMAL)
[2016-03-27] MEDS ORDERED: Alum-Mag Hydrox-Simeth 30 mL Suspension PO PRN (20:35)
[2016-03-27] MEDS ORDERED: Ondansetron 2 mg/mL 2 mL Inj IVPUSH PRN (20:35)
[2016-03-27] MEDS ORDERED: Polyethylene Glycol (PEG) 17 Gm Powder PO PRN (20:35)
[2016-03-27 21:07] VITALS: BP 117/77; PULSE 56; RESP 12; O2SAT 95
[2016-03-27 21:18] VITALS: BP 117/77; PULSE 56; O2SAT 95
[2016-03-27 21:33] VITALS: BP 125/76; PULSE 62; RESP 20; O2SAT 100
[2016-03-27] MEDS: levETIRAcetam 500 mg Tablet PO SCH (23:30)
--- NOTE | 2016-03-27 23:31 | PCM.HPMED ---
Subjective Date of Service Mar 27, 2016 Primary Provider: Admitting Physician: Abimbola Shaw DO Primary Care Physician: Dayne Ayala Attending Physician: Abimbola Shaw DO Admit Status: From the Emergency Department Chief Complaint: Dysphagia History of Present Illness: Patient is a 60-year-old male with seizures, tardive dyskinesia, Parkinson's, hypertension and dyslipidemia presenting with dysphagia. Of note, the patient was recently hospitalized and discharged on 03/21/[address] [facility] for acute encephalopathy that was suspected to be breakthrough seizures. The patient comes from [facility] and reports a possible seizure earlier today but was unable to get assistance from his roommate who was not aware of the patient's plight. Patient reports he was able to crawl his way to the telephone and contact his mother, whom then summoned EMS. Patient states he has been taking the medications he has available to him and admits that he may miss some of his medications as obtaining them from the pharmacy is difficult. Patient did have complaints of dysphagia in the ED, which resolved with diphenhydramine. Patient reports his movement disorder is currently at its baseline. He reports constipation, chronic neck and back pain, and some lightheadedness upon standing but otherwise denies fever, chills, shortness of breath, chest pain, nausea, emesis, dysuria. In the ED the patient requested that EDMD talk to his mother as she is concerned that the [facility] does not provide sufficient supervision for the level of care he needs. Per report, patient's mother is currently working with someone at [facility] because she believes that his living situation is unsafe. She is insistent that patient is not safe to be discharged home. Patient's mother is Radha Multani ([phone]). Patient's mother is [id number] and blind, thus cannot drive to [place] the patient. In the ED, vitals: temp 36.6, HR 64, RR 15 satting 100% on room air, BP 133/85. Notable labs: WBC 12.1 Review of Systems: A comprehensive review of systems was conducted with the patient and found to be negative except as above in the History of Present Illness. Allergies Coded Allergies: haloperidol (Verified Allergy, Severe, Extrapyramidal Symptoms, 7/30/16) diazepam (Verified Adverse Reaction, Intermediate, sedation at low doses. , 09/08/15) Home Medications Medication list needs to be verified with pharmacy. From prior discharge on 03/21: Benztropine Mesylate (Benztropine Mesylate) 1 Mg Tablet 1 MG PO BID (Reported) Benztropine Mesylate (Benztropine Mesylate) 1 Mg Tablet 2 MG PO BID Prescribed by: BAILEY BUENROSTRO MD Clonazepam (Clonazepam) 0.5 Mg Tablet 0.5 MG PO TID Prescribed by: BAILEY BUENROSTRO MD Divalproex Sprinkles (Divalproex Sprinkles) 125 Mg Cap.sprink 750 MG PO TID Prescribed by: BAILEY BUENROSTRO MD Fluoxetine (Fluoxetine) 20 Mg Capsule 60 MG PO HS (Reported) Levetiracetam (Keppra) 500 Mg Tablet 500 MG PO BID Prescribed by: BAILEY BUENROSTRO MD Mirtazapine (Mirtazapine) 15 Mg Tablet 7.5 MG PO HS (Reported) Propranolol HCl (Propranolol HCl) 20 Mg Tablet 20 MG PO DAILY (Reported) Ranitidine (Ranitidine) 150 Mg Capsule 150 MG PO BID (Reported) As needed Lorazepam (Lorazepam) 0.5 Mg Tablet 0.5-1 MG PO BID PRN PRN For Seizure ( Reported) PMH Schizophrenia with paranoia Parkinson disease Hyperlipidemia Hypertension Sleep Apnea Essential tremors Restless Leg syndrome COPD PTSD . Surgical History Cervical fusion Low back surgery Tonsillectomy Family History Father at [id number] from emphysema Mother with hypertension is alive and well Social History Occupation: Disability Hx Alcohol Use: Yes (NONE IN ABOUT A YEAR) Hx Substance Use: No Hx Tobacco Use: Yes Smoking Status: Former Smoker Living Arrangement: Other ([facility]) Exam Vital Signs Vital Sign - Last Date Time Temp Pulse Resp B/P Pulse Ox O2 Delivery O2 Flow Rate FiO2 03/27/16 21:07 56 12 117/77 95 Room Air 03/27/16 17:20 36.6 Exam General: Patient lying in bed. No acute distress, well-developed, well-nourished , appropriately interactive HEENT: Normocephalic, atraumatic. External ears without defect. Pupils equal, round, and reactive to light. Anicteric sclerae, moist conjunctivae, and no lid lag. Oropharynx free of erythema and cobble stoning with moist mucosa. Endentulous. Involuntary movement of mouth and tongue from his tardive dyskinesia. Neck: Supple. No lymphadenopathy or thyromegaly. Cardiovascular: Regular rate and rhythm with no murmurs, rubs, or gallops appreciated Pulmonary: Clear to auscultation bilaterally. Normal respiratory effort with no use of accessory muscles. Abdomen: Bowel tones present. Soft, nontender, nondistended. Extremities: No clubbing, cyanosis, edema, or lymphadenopathy appreciated. Skin: Normal temperature, turgor, and texture; no rash, ulcers, or subcutaneous nodules appreciated. Neurological: Cranial nerves grossly intact. Psychiatric: Normal mood and affect. Alert and oriented to person, place, and time. Lab and Diagnostics Result Diagram: 03/27/16173103/27/161731 Assessment & Plan Patient is a 60-year-old male with seizures, tardive dyskinesia, Parkinson's, hypertension and dyslipidemia presenting via EMS with dysphagia. 1. Acute dysphagia. Present on admission. Resolved -Resolved with diphenhydramine -Swallow evaluation 2. Seizure disorder with possible seizure episode. Present on admission -Patient reports possible seizure episode today -Likely due to medication non-compliance -Patient likely needs more assistance with medication administration. Social Work referral -Seizure precautions -Keppra and Depakote levels -Continue home dose Keppra, Depakote 3. Tardive dyskinesia, chronic. Present on admission -Continue home dose clonazepam 0.5mg TID 4. Acute leukocytosis. Present on admission -No obvious focus of infection clinically -Likely reactive to stress -Follow with CBC 5. Parkinson's disease, chronic. Present on admission -Followed by Dr. Frazier of Neurology -Continue home dose Cogentin 6. h/o prolonged qt, chronic -avoid qt prolonging medication Patient Status: Patient is admitted under observation status with expected length of stay less than 2 midnights due to risk of adverse event. VTE Prophylaxis: SCDs Resuscitation Status: DNR/DNI:Do Not Resuscitate/Intubate Attending Statement The patient was seen and examined together with house staff on 03/27/2016 and I agree with the history, exam and plan as outlined in the note above. Liu Burt DO Mar 27, 2016 21:59 Abimbola Shaw DO Mar 28, 2016 01:40
--- NOTE | 2016-03-28 02:15 | NUR ---
Arrival to unit Patient arrived to unit at 2130 via ED [facility]. Patient was able to ambulate from [facility] to hospital bed. Complains of 4/10 leg pain due to previous injury. IV field start in right arm is patent, intact, and asymptomatic. Patient is maintaining O2 sats > 92% on room air. DIESEL MECHANIC APPRENTICE has been applied due to ALECIA score this evening. Seizure pads are being used due to patients history of seizures and current condition. MD aware. SCDs and yellow socks are being worn, bed is locked, in low position, and [place] alarm is on. Was unable to complete med rec due to patient being unaware of what medications he takes. Will share this with day shift nurse.Will continue to monitor, and continue Q 1 hour checks.
[2016-03-28 03:49] VITALS: BP 120/78; PULSE 74; RESP 18; O2SAT 97
[2016-03-28 06:16] LABS: BASOPHILS % (AUTO) 0.6 % (0-3); EOSINOPHILS % (AUTO) 6.4 % (0-5); MONOCYTES % (AUTO) 15.2 % (4-12); Mean Corpuscular Volume 92.5 fL (81-100); NEUTROPHILS % (AUTO) 39.9 % (40-74); Platelet Count 294 bil/L (150-400)
[2016-03-28 07:21] VITALS: BP 107/69; PULSE 59; RESP 18; O2SAT 96
--- NOTE | 2016-03-28 09:00 | NUR ---
Falls Per pt he has been falling multiple times daily since last discharge. He states that he does not feel safe at the [facility] as he needs more help. He also states that he has been having seizures again and states that this is sometimes why he falls but not always. States that sometimes he has 1 seizure a day and other times he has 5 or even more a day. Concerns regarding safe living situation were discussed and will be passed on to and EMMANUELLE. Care continues
[2016-03-28] MEDS: levETIRAcetam 500 mg Tablet PO SCH ×2 (09:32→20:51)
[2016-03-28] MEDS: Divalproex Sprinkles 125 mg ER12 Capsule PO SCH ×2 (09:34→20:49)
--- NOTE | 2016-03-28 12:00 | NUR ---
family concerns Spoke with mother regarding pts discharge. States that he is not safe at the [facility] and she is concerned about him being discharged there again. Advised mother that I would pass this along to the doctors and SWs and were will continue to assess Darshan and help to place him appropriately. Mother very concerned for Sons safety. Care continues
[2016-03-28 12:18] VITALS: BP 93/56; PULSE 62; RESP 16; O2SAT 98
--- NOTE | 2016-03-28 13:23 | NUR ---
Case Management- SANTOS explained and signed by patient at 1030AM. Alla Daugherty RN
--- NOTE | 2016-03-28 14:26 | NUR ---
Evaluation completed. Please go to "Notes" then click on "Assessments and Notes" (bottom left corner of screen). Then select appropriate discipline tab on top of screen.
--- NOTE | 2016-03-28 15:15 | NUR ---
Seizure Pt showed signs of a seizure about 30seconds. Some slight jerking in arms but nothing severe, head pulled back, mouth closed and deep breathing. Pt did not loose control of bowels at this time. CPOx was on and oxygen remained at normal level with HR 80s. Once stopped pt was oriented and able to answer questions but did have increased slurring of words. Pts tardive dyskinesia does seem worse at this time. Care continues
--- NOTE | 2016-03-28 16:53 | PCM.PNMED ---
Subjective Date of Service Mar 28, 2016 Subjective no further episodes of seizure. No further episode of dystonia . Valproic acid level subtherapeutic. Keppra level pending Exam Vital Signs Vital Sign - Last Date Time Temp Pulse Resp B/P Pulse Ox O2 Delivery O2 Flow Rate FiO2 03/28/16 12:18 35.6 62 16 93/56 98 Room Air Intake and Output 03/27/16 03/27/16 03/28/16 Cumulative From/Thru 15:00 23:00 07:00 03/27/16 17:20 - 03/28/16 05:30 Intake Total 576 ml 576 ml Output Total 600 ml 600 ml Balance -24 ml -24 ml Intake Oral 576 ml 576 ml Output Urine Total 600 ml 600 ml # Bowel Movements 0 0 Exam General: Patient lying in bed. No acute distress, well-developed, well-nourished , appropriately interactive HEENT: Normocephalic, atraumatic. External ears without defect. Pupils equal, round, and reactive to light. Anicteric sclerae, moist conjunctivae, and no lid lag. Oropharynx free of erythema and cobble stoning with moist mucosa. Neck: Supple. No lymphadenopathy or thyromegaly. Cardiovascular: Regular rate and rhythm with no murmurs, rubs, or gallops appreciated Pulmonary: Clear to auscultation bilaterally. Normal respiratory effort with no use of accessory muscles. Abdomen: Bowel tones present. Soft, nontender, nondistended. Extremities: No clubbing, cyanosis, edema, or lymphadenopathy appreciated. Skin: Normal temperature, turgor, and texture; no rash, ulcers, or subcutaneous nodules appreciated. Neurological: Cranial nerves grossly intact. Psychiatric: Normal mood and affect. Alert and oriented to person, place, and time. IVs and Medications Medications Reviewed: Medications were reviewed in detail Lab and Diagnostics Result Diagram: 03/28/16 0545 03/27/16 1732 Assessment & Plan Patient is a 60-year-old male with seizures, tardive dyskinesia, Parkinson's, hypertension and dyslipidemia presenting via EMS with dysphagia. 1. Breakthrough seizure yesterday 03/27. Present on admission -Patient reports possible seizure episode yesterday -Likely due to medication non-compliance -Valproic acid level subtherapeutic, most likely due to noncompliance. Will not increase dose . Keep relatively little pending -Patient likely needs more assistance with medication administration. Social Work referral -Seizure precautions -Continue home dose Anna Hull 2. Acute dysphagia. Present on admission. Resolved -Resolved with diphenhydramine -Swallow evaluation 3. Tardive dyskinesia, chronic. Present on admission -Continue home dose clonazepam 0.5mg TID 4. Acute leukocytosis. Present on admission -No obvious focus of infection clinically -Likely reactive to stress -Follow with CBC 5. Parkinson's disease, chronic. Present on admission -Followed by Dr. Frazier of Neurology -Continue home dose Cogentin 6. h/o prolonged qt, chronic -avoid qt prolonging medication Discharge tomorrow pending physical therapy evaluation given frequent recent falls VTE Prophylaxis: SCDs VTE Mechanical Devices: Intermittant Pneumatic CD Resuscitation Status: DNR/DNI:Do Not Resuscitate/Intubate Wes Edwards MD Mar 28, 2016 16:53
--- NOTE | 2016-03-28 17:14 | NUR ---
Social Work Initial Assessment: SW met with patient at bedside to discuss discharge plan. Patient is a 60 year old male admitted under observation status on 03/27/16 for dystonia. Patient payer as [employer]. Patient PCP as MD Ayala. Patient resides at the [facility], . Patient's does not have VA or LTC benefits. Patient denied any previous SNF history. Patient denied AD at this time. SW discussed discharge options with patient as a result to recurrent readmission. At this time denial obtained and patient not eligible for SNF transfer via [facility] approval. MIN referral initiated to patient behalf upon previous admission. SW contacted MIN Chow who states that patient MIN Ayers, assigned to case. SW spoke to MIN Ayers discussing recurrent readmissions and safety concerns. Rep aware and determine [facility] placement. Rep advised director social service that AFH placement is an arrangement of service that will takes weeks to process. SW met with patient at bedside to discuss available funds for motel. Patient states having no available funds. SW contacted patient mother to inquire about available funds for motel and mother has no available funds. Patient mother states that patient obtains SSI on the first of the month of $1200. EMMANUELLE spoke to [facility] rep who has been in communication with MIN Sanches and he too was advised of 4-6 week process for [facility] placement. EMMANUELLE spoke to [facility] rep Daniel to inquire about HHC services. Rep states that patient was contacted on previous admission on for STOC of services but patient refused HHC assessment on . SW advised rep that discussion with patient to be made as he will be educated on need to not to refuse HHC services arranged on his behalf. STOC of services to begin earliest on Thursday. EMMANUELLE contacted and left voice mail message for APS, [phone] with mention of reference number:[id number] to discuss readmission. EMMANUELLE please follow up with APS with mentioned reference number who t PLAN: Return to the [facility] via [facility] and [facility]. COPELAND to follow for AFH placement. EMMANUELLE to follow. Mark NAVARRO Addendum: 03/28/16 at 1732 by DAVID MCCLELLAN SS Amended: Links added. Addendum: 03/28/16 at 1837 by DAVID MCCLELLAN SS ST and PT discussed concerns with returning back to [facility]. ST states patient requires daily senior talent acquisition specialist for nutrition and swallowing. Case discussed with CM fuel manager. [employer] aware of case. SW will continue to follow up with MIN for expedited AFH placement. Patient expressed willingness to obtain alterative housing. SNF placement unable to be established via [facility]. [facility] rep to accept patient back tomorrow. SW to follow up with [facility] to ensure possible earlier [facility] assessment tomorrow. SW to follow. Mark NAVARRO
[2016-03-28 18:51] VITALS: BP 106/72; PULSE 74; RESP 18; O2SAT 98
[2016-03-28 21:14] VITALS: BP 102/69; PULSE 61; RESP 16; O2SAT 99
--- NOTE | 2016-03-29 03:56 | NUR ---
Mobility Able to safely ambulate to BR with FWW and CGA. Using call light appropriately. Bed and chair alarms engaged for safety. Hourly rounding ongoing.
[2016-03-29 05:01] VITALS: BP 101/66; PULSE 57; RESP 16; O2SAT 100
--- NOTE | 2016-03-29 11:23 | PCM.DIMED ---
Discharge Instructions Date of Service Mar 29, 2016 Dates of Hospitalization Mar 27, 2016 at 20:20 Discharge Diagnosis Discharge Diagnosis 1. Breakthrough seizure on 03/27/16. Present on admission -Likely due to medication non-compliance 3. Tardive dyskinesia, chronic. Present on admission,resolved 4. Acute leukocytosis. Present on admission 5. Parkinson's disease, chronic. Present on admission,chronic 6. h/o prolonged qt, chronic 7.Dysphagia,chronic and intermittent Diet Other (patient has intermittent dysphagia and needs close outpatient speech therapy followup) Activity Outpatient Physical Therapy Call your provider Fever or Chills, Shortness of breath, Bleeding, Chest pain, Vomitting, Excessive diarrhea, Weakness (unilateral) Patient Instructions You were hospitalized a due to breakthrough seizure. Medication levels are subtherapeutic. Most likely due to noncompliance. Please take his seizure medications as prescribed. Please follow-up with neurologist Dr hnederson. Follow-up plan Please follow-up with PCP in 1 week. Please follow-up with neurologist dr Henderson in 1-2 weeks. Please follow-up speech therapy outpatient. Follow-up Provider: Dayne Ayala Follow-up with PCP in: 1 week Provider: MARTIN,PHYSICIAN Follow-up in: 1 week (speech therapy outpatient ) Wes Edwards MD Mar 29, 2016 11:23
--- NOTE | 2016-03-29 11:49 | NUR ---
Social Work Note - Discharge Darshan Horowitz is able to d/c home today. PRINTING PLATE CLERK spoke with pt's mother - Shalini who voiced concerns that pt needs more care than what [facility] can provide. PRINTING PLATE CLERK shared that [facility], [facility] and [facility] are going to be involved. She understands that finding new placement will take time and Pt is medically stable for d/c today. PRINTING PLATE CLERK spoke with Asim at [facility] - owner oral surgeon. He too identifies that pt will need higher level of care. He will talk with Geraldo COPELAND and states that pt can come home if [facility] and [facility] will continue to work with him. PRINTING PLATE CLERK spoke with Daniel from [facility] who has appointment for services on Thursday. Pt will transfer home with [facility] as pt's family can not drive him and [facility] provides no transportation. Plan; home via [employer] and [facility] RN PT. RUTH Alexander
[2016-03-29] MEDS ORDERED: Divalproex Sprinkles 125 mg ER12 Capsule PO SCH (12:15)
[2016-03-29] MEDS: levETIRAcetam 500 mg Tablet PO SCH (12:23)
--- NOTE | 2016-03-29 13:40 | PCM.DC.MED ---
Discharge Summary Date of Service Mar 29, 2016 Dates of Hospitalization Date of Hospital Admission Mar 27, 2016 at 20:20 Date of Discharge: Mar 29, 2016 Providers: Admitting Physician: Abimbola Shaw DO Primary Care Physician: Dayne Ayala Attending Physician: Abimbola Shaw DO Diagnosis at Time of Discharge Diagnosis at Time of Discharge 1. Breakthrough seizure on 03/27/16. Present on admission -Likely due to medication non-compliance 3. Tardive dyskinesia, chronic. Present on admission,resolved 4. Acute leukocytosis. Present on admission 5. Parkinson's disease, chronic. Present on admission,chronic 6. h/o prolonged qt, chronic 7.Dysphagia,chronic and intermittent Consultations none Brief History as per HPI performed by Dr Shaw on 03/27/16 Patient is a 60-year-old male with seizures, tardive dyskinesia, Parkinson's, hypertension and dyslipidemia presenting with dysphagia. Of note, the patient was recently hospitalized and discharged on 03/21/2016 from [facility] for acute encephalopathy that was suspected to be breakthrough seizures. The patient comes from [facility] and reports a possible seizure earlier today but was unable to get assistance from his roommate who was not aware of the patient's plight. Patient reports he was able to crawl his way to the telephone and contact his mother, whom then summoned EMS. Patient states he has been taking the medications he has available to him and admits that he may miss some of his medications as obtaining them from the pharmacy is difficult. Patient did have complaints of dysphagia in the ED, which resolved with diphenhydramine. Patient reports his movement disorder is currently at its baseline. He reports constipation, chronic neck and back pain, and some lightheadedness upon standing but otherwise denies fever, chills, shortness of breath, chest pain, nausea, emesis, dysuria. In the ED the patient requested that EDRI talk to his mother as she is concerned that the [facility] does not provide sufficient supervision for the level of care he needs. Per report, patient's mother is currently working with someone at [facility] because she believes that his living situation is unsafe. She is insistent that patient is not safe to be discharged home. Patient's mother is Radha Multani ([phone]). Patient's mother is [id number] and blind, thus cannot drive to fish bait picker the patient. In the ED, vitals: temp 36.6, HR 64, RR 15 satting 100% on room air, BP 133/85. Notable labs: WBC 12.1 Hospital Course Patient is a 60-year-old male with seizures, tardive dyskinesia, Parkinson's, hypertension and dyslipidemia presenting via EMS with dysphagia. 1. Breakthrough seizure yesterday 03/27. Present on admission -Patient reports possible seizure episode yesterday -Likely due to medication non-compliance -Valproic acid level subtherapeutic, most likely due to noncompliance. Will not increase dose . Keep relatively little pending -Patient likely needs more assistance with medication administration. Social Work referral outpatient. -Seizure precautions -Continue home dose Keppra Depakote 2. Acute dysphagia. Present on admission. Resolved -Resolved with diphenhydramine -Swallow evaluation recommended ongoing swallow eval and treatment outpatient given dysphagia is intermittent and episodic. Needs to follow with speech therapist outpatient very closely 3. Tardive dyskinesia, chronic. Present on admission -Continue home dose clonazepam 0.5mg TID 4. Acute leukocytosis. Present on admission -No obvious focus of infection clinically -Likely reactive to stress 5. Parkinson's disease, chronic. Present on admission -Followed by Dr. Henderson of Neurology -Continue home dose Cogentin 6. h/o prolonged qt, chronic -avoid qt prolonging medication Discharge to custodial Patient to follow with outpatient social security benefits interviewer about placement to another facility. Updated his mother about the plan for outpatient follow-up on placement. Exam Vital Signs (Last) Date Time Temp Pulse Resp B/P Pulse Ox O2 Delivery O2 Flow Rate FiO2 03/29/16 05:01 35.5 57 16 101/66 100 Room Air Exam General: Patient lying in bed. No acute distress, well-developed, well-nourished , appropriately interactive HEENT: Normocephalic, atraumatic. External ears without defect. Pupils equal, round, and reactive to light. Anicteric sclerae, moist conjunctivae, and no lid lag. Oropharynx free of erythema and cobble stoning with moist mucosa. Neck: Supple. No lymphadenopathy or thyromegaly. Cardiovascular: Regular rate and rhythm with no murmurs, rubs, or gallops appreciated Pulmonary: Clear to auscultation bilaterally. Normal respiratory effort with no use of accessory muscles. Abdomen: Bowel tones present. Soft, nontender, nondistended. Extremities: No clubbing, cyanosis, edema, or lymphadenopathy appreciated. Skin: Normal temperature, turgor, and texture; no rash, ulcers, or subcutaneous nodules appreciated. Neurological: Cranial nerves grossly intact. Psychiatric: Normal mood and affect. Alert and oriented to person, place, and time. Test 03/27/16 17:28 03/27/16 17:32 03/27/16 19:56 03/28/16 05:45 Hold Purple Top Tube Received (Received) Hold Blue Top Tube Received (Received) Hold Red Top Tube Received (Received) Hold Kila Top Tube Received (Received) Prothrombin Time 10.6sec (8.1-12.5) Prothromb Time International Ratio 0.99ratio Sodium Level 137mEq/L (134-144) Potassium Level 4.6mEq/L (3.5-5.2) Chloride Level 99mEq/L (97-108) Carbon Dioxide Level 24mmol/L (18-29) Blood Urea Nitrogen 13mg/dL (8-27) Creatinine 0.69mg/dL (0.76-1.27) Estimat Glomerular Filtration Rate 124mL/min (>59) Glucose Level 81mg/dL (60-99) Calcium Level 9.1mg/dL (8.5-10.1) Magnesium Level 2.1mg/dL (1.6-2.6) Total Bilirubin < 0.2mg/dL (0.0-1.2) Aspartate Amino Transf (AST/SGOT) 26U/L (0-50) Alanine Aminotransferase (ALT/SGPT) 18U/L (0-44) Alkaline Phosphatase 85U/L (25-160) Total Protein 7.0g/dL (6.4-8.4) Albumin 3.9g/dL (3.4-5.0) Lipase 30U/L (13-60) Urine Color Yellow (YELLOW) Urine Appearance Clear (CLEAR,HAZY) Urine pH 6.5 (5.0-8.0) Urine Specific [place] <1.005 (1.003-1.035) Urine Protein Negativemg/dL (NEG,TRACE) Urine Glucose (UA) Negativemg/dL (NEGATIVE) Urine Ketones Negativemg/dL (NEGATIVE) Urine Occult Blood Negative (NEGATIVE) Urine Nitrite Negative (NEGATIVE) Urine Bilirubin Negative (NEGATIVE) Urine Urobilinogen Normalmg/dL (NORMAL) Urine Leukocyte Esterase Negative (NEGATIVE) Urine RBC 0-2/hpf (0-2) Urine WBC 0-5/hpf (0-5) Urine Epithelial Cells Occasional/hpf (NONE-MOD) Urine Crystals None seen (NONE SEEN) Urine Bacteria None/hpf (NONE-FEW) Urine Hyaline Casts None/lpf (NONE) Urine Granular Casts None seen (NONE SEEN) Urine Waxy Casts None seen (NONE SEEN) Urine Red Blood Cell Casts None seen (NONE SEEN) Urine White Blood Cell Casts None seen (NONE SEEN) Urine Mucus None seen (None Seen) Urine Trichomonas None seen (NONE SEEN) Urine Yeast None (NONE SEEN) Urinalysis Comment None Urine Culture Reflexed Not indicated White Blood Count 8.4th/mm3 (3.8-10.1) Red Blood Count 4.67mil/mm3 (4.40-5.80) Hemoglobin 14.5g/dL (13.8-17.2) Hematocrit 43.2% (41.0-50.0) Mean Corpuscular Volume 92.5fL (81-100) Mean Corpuscular Hemoglobin 31.0pg (27.0-35.0) Mean Corpuscular Hemoglobin Concent 33.6% (32.0-37.0) Red Cell Distribution Width 14.4% (12.3-15.4) Platelet Count 294bil/L (150-400) Neutrophils (%) (Auto) 39.9% (40-74) Lymphocytes (%) (Auto) 37.4% (14-46) Monocytes (%) (Auto) 15.2% (4-12) Eosinophils (%) (Auto) 6.4% (0-5) Basophils (%) (Auto) 0.6% (0-3) Valproic Acid (Depakene) Level 29ug/mL (50-125) Test 03/28/16 07:20 Discharge Medications Discharge Medications Benztropine Mesylate (Benztropine Mesylate) 1 Mg Tablet 2 MG PO BID Prescribed by: BAILEY BUENROSTRO MD Clonazepam (Clonazepam) 0.5 Mg Tablet 0.5 MG PO TID Prescribed by: BAILEY BUENROSTRO MD Divalproex Sprinkles (Divalproex Sprinkles) 125 Mg Cap.sprink 750 MG PO TID Prescribed by: BAILEY BUENROSTRO MD Fluoxetine (Fluoxetine) 20 Mg Capsule 60 MG PO HS (Reported) Levetiracetam (Keppra) 500 Mg Tablet 500 MG PO BID Prescribed by: BAILEY BUENROSTRO MD Mirtazapine (Mirtazapine) 15 Mg Tablet 7.5 MG PO HS (Reported) Propranolol HCl (Propranolol HCl) 20 Mg Tablet 20 MG PO DAILY (Reported) Ranitidine (Ranitidine) 150 Mg Capsule 150 MG PO BID (Reported) As needed Lorazepam (Lorazepam) 0.5 Mg Tablet 0.5-1 MG PO BID PRN PRN For Seizure ( Reported) Followup Plan Disposition: custodial Follow-up plan Please follow-up with PCP in 1 week. Please follow-up with neurologist dr Henderson in 1-2 weeks. Please follow-up speech therapy outpatient. Discharge Diet: Other (patient has intermittent dysphagia and needs close outpatient speech therapy followup) Discharge Activity: Outpatient Physical Therapy Patient Instructions You were hospitalized a due to breakthrough seizure. Medication levels are subtherapeutic. Most likely due to noncompliance. Please take his seizure medications as prescribed. Please follow-up with neurologist Dr henderson. Follow-up Provider: Dayne Ayala Follow-up with PCP in: 1 week Provider: OTHER,PHYSICIAN Follow-up in: 1 week (speech therapy outpatient ) copies to: Dayne Ayala Melaku MD Mar 29, 2016 13:40
--- NOTE | 2016-03-29 15:31 | NUR ---
Discharge Patient discharged back to the [facility]. IV DC'd and intact. Discharge instructions given with no questions. No RX sent with patient. Patient denied any pain and nausea at time of discharge. MANAGER RESEARCH gathered all patient belongings. MANAGER RESEARCH escorted patient out via W/C.
== END 2016-03-29 15:00 | disposition home health service (06) ==
LOC: EDBD 17:05 → SED 17:05 → OSC 20:20
PROVIDERS: ADMIT Internal Medicine; ATTEND Internal Medicine
DX: G40.909 Epilepsy, unspecified, not intractable, without status epilepticus (principal); G24.01 Drug induced subacute dyskinesia; D72.829 Elevated white blood cell count, unspecified; G20 Parkinson's disease; I45.81 Long QT syndrome; R13.10 Dysphagia, unspecified; F31.9 Bipolar disorder, unspecified; F20.0 Paranoid schizophrenia; F43.10 Post-traumatic stress disorder, unspecified; J44.9 Chronic obstructive pulmonary disease, unspecified; I10 Essential (primary) hypertension; E78.5 Hyperlipidemia, unspecified; G47.30 Sleep apnea, unspecified; Z87.891 Personal history of nicotine dependence
CPT/HCPCS: 36415; 80053; 80164; 80299; 81000; 83690; 83735; 85025; 85610; 92526; 92610; 96374; 97162; 99285; G0378; G8978; G8979; J1200

== ENCOUNTER 2016-04-18 05:06 | Emergency (ER) | payer MEDICARE ==
[~2016-04-18] VITALS: Ht 177.8 cm; Wt 92.7 kg
[2016-04-18 05:26] VITALS: BP 119/82; PULSE 76; RESP 14; O2SAT 97
[2016-04-18] MEDS ORDERED: Benztropine 1 mg/mL 2 mL Inj IM ONE (05:30)
--- NOTE | 2016-04-18 05:30 | ED.REPORT ---
HPI-General Illness Date of Service Apr 18, 2016 ED Provider: Lew Abdalla MD Patient is a 60 year old male with a history of Parkinson's disease, seizure disorder, schizophrenia, COPD, hypertension, and chronic tardive dyskinesia who presents to the ED via EMS after he developed dystonic movements of his mouth this morning. The patient lives at a sober living alf house, with one of his roommates noticing the movement of his mouth. He reports having symptoms like this previously, but that usually it takes some time for them to resolve. Patient takes several medications which could cause this reaction. The patient is able to speak, but his speech is severely limited by the abnormal movements. History is limited by his current condition. Nursing Notes Stated Complaint: UNCONTROLLABLE MOTOR MOVEMENT Chief Complaint: General Complaint Nursing Notes Reviewed: Yes Allergies: Coded Allergies: haloperidol (Verified Allergy, Severe, Extrapyramidal Symptoms, 04/18/16) diazepam (Verified Adverse Reaction, Intermediate, sedation at low doses. , 04/18/16) Scheduled Benztropine Mesylate (Benztropine Mesylate) 1 Mg Tablet 2 MG PO BID Clonazepam (Clonazepam) 0.5 Mg Tablet 0.5 MG PO TID Divalproex Sprinkles (Divalproex Sprinkles) 125 Mg Cap.sprink 750 MG PO TID Fluoxetine (Fluoxetine) 20 Mg Capsule 60 MG PO HS Levetiracetam (Keppra) 500 Mg Tablet 500 MG PO BID Mirtazapine (Mirtazapine) 15 Mg Tablet 7.5 MG PO HS Propranolol HCl (Propranolol HCl) 20 Mg Tablet 20 MG PO DAILY Ranitidine (Ranitidine) 150 Mg Capsule 150 MG PO BID Scheduled PRN Lorazepam (Lorazepam) 0.5 Mg Tablet 0.5-1 MG PO BID PRN PRN For Seizure General Time Seen by MD: 05:28 Chief Complaint Other (dystonic movements of mouth) Hx Obtained From: Patient Unable to Obtain Hx: Patient condition (limited) Arrived By: Ambulance Sudden in Onset?: No Onset Occurred: Just prior to arrival Symptom Duration: Since onset Recent Healthcare: No recent doctor visit, No recent hospitalization Similar Sx Previous: Yes Past Medical History Past Medical History Notes: PCP: Dr. Palm Neurologist: Dr. Frazier Patient March 06 through 03/13/2016, and then again March 16 through 03/21/2016 with a diagnosis of acute encephalopathy secondary to post ictal status following breakthrough seizures in the setting of medication noncompliance, along with a history of severe tardive dyskinesia, and swallowing difficulty, recent enterococcal UTI, treated with negative UA in follow-up Past Medical History Seizures Chronic Tardive dyskinesia Parkinson's Schizophrenia Bipolar disorder PTSD COPD Hypertension Hyperlipidemia Sleep Apnea Essential tremors Restless Leg syndrome Past Surgical History Cervical fusion Low back surgery Tonsillectomy Family History Father, at 82 from emphysema Smoking History Former Smoker Social History Resides at [facility] Alcohol Use: Denies alcohol use Drug Use: Denies drug use Other Social History: Local resident Ambulatory Status Independent Review of Systems + abnormal movements of mouth Unable to Obtain ROS Patient condition (limited) Physical Exam Vital Signs Vital Signs Date Time Temp Pulse Resp B/P Pulse Ox O2 Delivery O2 Flow Rate FiO2 04/18/16 05:26 36.6 76 14 119/82 97 Room Air Initial VS: Reviewed Skin: Warm, Dry, No cyanosis Psychiatric: Mood/affect normal, Behavior normal, Normal thought content General/Constitutional: Awake, Alert Appearance / Presentation: Positive: Obese Head / Eyes: Normocephalic, PERRL (6mm pupils) ENT: Airway patent Neck: Supple, No adenopathy Respiratory / Chest: Breath sounds NL, Breath sounds = bilat, No respiratory distress, No rales, No rhonchi, No wheezing Cardiovascular: Heart rate NL, Regular rhythm, Heart sounds NL, No murmurs Abdomen: Soft, Non-tender Neurologic: Oriented X3 Movement Abnormality: Positive: Dystonia (typical facial dystonia) no extraneous movements of arms and legs Interpretation & Diagnostics Lab Results Interpretation Test 04/18/16 05:15 Re-Eval/Medical Decision Source of Hx: Old records Discharge & Departure Shift Change Sign-Out Patient Care Transferred: Yes Discussed Complaint(s): Yes Primary Impression: Dystonia Referrals: Dayne Ayala (PCP) Care Transferred to: Dr. Allen Care Transferred at: 06:00 Bryson Attestation Portions of this note were transcribed by Kellen Montelongo. I, Dr. Abdalla personally performed the history, physical exam and medical decision-making; I reviewed and confirmed the accuracy of the information in the transcribed note. Signed by: Bryson Garzon, 04/18/2016 0585 copies to: Dayne Ayala Howard L MD Apr 18, 2016 05:30 Kellen Montelongo Apr 18, 2016 05:38
[2016-04-18 08:18] VITALS: BP 127/80; PULSE 70; RESP 14
[2016-04-18 11:04] VITALS: BP 141/103; PULSE 74; RESP 20; O2SAT 98
[2016-04-18] MEDS ORDERED: Benztropine 1 mg/mL 2 mL Inj IV ONE (11:05)
[2016-04-18 15:17] VITALS: BP 139/103; PULSE 83; O2SAT 96
[2016-04-18] MEDS ORDERED: KLO5T PO (15:42)
[2016-06-30] MEDS ORDERED: NitroPRUSSIDE Inj 50,000 MCG in Dextrose 5% 248 ML IV ONE (22:30)
== END 2016-04-18 16:00 | disposition home or self-care (01) ==
LOC: SED 05:06 → EDBD 05:06 → SED 16:00
DX: G24.8 Other dystonia (principal); J44.9 Chronic obstructive pulmonary disease, unspecified; I10 Essential (primary) hypertension; F31.9 Bipolar disorder, unspecified; F20.9 Schizophrenia, unspecified; E78.5 Hyperlipidemia, unspecified; G20 Parkinson's disease; Z87.891 Personal history of nicotine dependence; Z88.5 Allergy status to narcotic agent
CPT/HCPCS: 96372; 96374; 96375; 96376; 99284; J0515; J1200; J2060

== ENCOUNTER 2016-06-30 19:33 | Emergency (ER) | payer MEDICARE, OTHER ==
[2016-06-30 19:33] VITALS: BP 115/69; PULSE 72; RESP 13; O2SAT 96
[2016-06-30] MEDS ORDERED: 0.9% Sodium Chloride 1,000 ML IV ONE (19:56)
--- NOTE | 2016-06-30 19:56 | ED.REPORT ---
HPI-General Illness Date of Service June 30, 2016 ED Provider: Stan Flores DO Patient is a 70 year old male with a history of Parkinson's disease, tardive dyskinesia and seizure disorder who presents to the ED via EMS from a care facility following a seizure that occurred just prior to arrival. EMS state that the seizure was focalized and he was given Versed en route. Glucose was 70 in the field. Patient was recently admitted for breakthrough seizure on 03/27/16. Nursing Notes Stated Complaint: SEIZURE Chief Complaint: Seizure Nursing Notes Reviewed: Yes Allergies: Coded Allergies: No Known Allergies (Unverified , 06/30/16) Scheduled Levetiracetam (Keppra) 1,000 Mg Tablet 1,000 MG PO BID General Time Seen by MD: 19:46 Chief Complaint Seizure Hx Obtained From: EMS Unable to Obtain Hx: Patient condition (Limited due to post ictal state) Arrived By: Ambulance Sudden in Onset?: Yes Onset Occurred: Just prior to arrival Symptom Duration: Since onset Pertinent Negative: Pt denies other symptoms Recent Healthcare: No recent doctor visit, No recent hospitalization Past Medical History Past Medical History Notes: Neurologist: Dr. Dayne Stokes MD PCP: Dayne GOMEZ Past Medical History Seizures Parkinson's Schizophrenia Bipolar disorder PTSD COPD Chronic dysphagia Tardive dyskinesia Past Surgical History Neck Smoking History Unknown if Ever Smoker Social History Other Social History: Local resident Review of Systems Unable to Obtain ROS Patient condition (Limited ROS due to pt condition ) Full Review of Systems Neurologic: Reports: Seizure Complete sys rev & neg: except as marked. Physical Exam Vital Signs Vital Signs Date Time Temp Pulse Resp B/P Pulse Ox O2 Delivery O2 Flow Rate FiO2 06/30/16 19:33 36.8 72 13 115/69 96 Room Air Initial VS: Reviewed Neck: Supple, Non-tender, Full range of motion Extremities: Vascular intact, Neuro intact, No swelling, No tenderness Skin: Warm, Dry, No cyanosis Alertness: Positive: Responds to verb stimuli, Sedated Head / Eyes: Atraumatic, Normocephalic, PERRL Respiratory / Chest: Atraumatic, Breath sounds NL, Breath sounds = bilat, No respiratory distress Cardiovascular: Heart rate NL, Regular rhythm, Heart sounds NL, Peripheral circulation NL, Pulses = bilaterally Abdomen: Atraumatic, Soft, Non-tender, No distention Neurologic: No motor deficits, No sensory deficits, CN II - XII intact, Reflexes equal bilat NEURO: Symmetric Slow to respond Interpretation & Diagnostics Lab Results Interpretation Result Diagram: 06/30/16200406/30/162004 Test 06/30/16 20:05 White Blood Count 11.8th/mm3 (3.8-10.1) Red Blood Count 4.89mil/mm3 (4.40-5.80) Hemoglobin 15.8g/dL (13.8-17.2) Hematocrit 44.9% (41.0-50.0) Mean Corpuscular Volume 91.8fL (81-100) Mean Corpuscular Hemoglobin 32.3pg (27.0-35.0) Mean Corpuscular Hemoglobin Concent 35.2% (32.0-37.0) Red Cell Distribution Width 14.1% (12.3-15.4) Platelet Count 220bil/L (150-400) Neutrophils (%) (Auto) 28.8% (40-74) Lymphocytes (%) (Auto) 46.8% (14-46) Monocytes (%) (Auto) 19.0% (4-12) Eosinophils (%) (Auto) 4.8% (0-5) Basophils (%) (Auto) 0.3% (0-3) Prothrombin Time 10.8sec (8.1-12.5) Prothromb Time International Ratio 1.01ratio Sodium Level 136mEq/L (134-144) Potassium Level 4.9mEq/L (3.5-5.2) Chloride Level 99mEq/L (97-108) Carbon Dioxide Level 20mmol/L (18-29) Blood Urea Nitrogen 10mg/dL (8-27) Creatinine 0.72mg/dL (0.76-1.27) Estimat Glomerular Filtration Rate 118mL/min (>59) Glucose Level 98mg/dL (60-99) Calcium Level 9.1mg/dL (8.5-10.1) Total Bilirubin 0.2mg/dL (0.0-1.2) Aspartate Amino Transf (AST/SGOT) 34U/L (0-50) Alanine Aminotransferase (ALT/SGPT) 18U/L (0-44) Alkaline Phosphatase 66U/L (25-160) Troponin T < 0.010ug/L (0.0-0.011) Total Protein 7.1g/dL (6.4-8.4) Albumin 3.9g/dL (3.4-5.0) Valproic Acid (Depakene) Level 113ug/mL (50-125) ECG Interpretation ECG Interpretation: Sinus Rhythm Abnormal R wave progression Time: 20:20 Interpreted by: ED physician X-Ray Chest Interpretation Chest Xray Interpretation: IMPRESSION: No acute process. Dictated by: Benson Plummer M.D. on 06/30/2016 at 21:29 Interpretation / Wet Read by: Interpret - Radiologist CT Head Interpretation IMPRESSION: 1. No acute intracranial abnormality. 2. Sinus disease. Dictated by: Benson Plummer M.D. on 06/30/2016 at 20:16 Study: Head CT no contrast Interpretation / Wet Read by: Interpret - Radiologist Re-Eval/Medical Decision Med Decision/Clinical Course Overall symptoms sound like a breakthrough seizure, he has been observed for several hours in the ER with no recurrence. Recommend increasing his Keppra dose and following up closely with his neurologist. Strict return and follow-up precautions given. Time of Eval: 21:35 Patient Status: Condition improved Re-Evaluation/Progress Note: Patient is given Keppra. His symptoms have improved and he is more awake and alert. Time of Eval: 22:03 Patient Status: Condition improved Re-Evaluation/Progress Note: Patient is rechecked. He is informed of his results and diagnosis. All questions are addressed. He understands and agrees with the intended treatment plan. Counseled Regarding: Diagnosis, Lab results, Need for follow-up, When/why to return to ED Discharge & Departure Primary Impression: Breakthrough seizure Disposition: Home Discharge Condition All VS Reviewed: Yes Condition: Stable Patient Instructions: Generalized Tonic Clonic Seizures (ED) Additional Instructions: Increase your Keppra 1000 mg twice daily. Call your neurologist and primary care doctor in the morning for close follow-up. Return to the ER for persistent seizures without return to normal mental baseline, signs or symptoms of stroke, high fever, or other concerns. Referrals: Dayne Frazier MD, Peter G. ARNP Scribe Attestation Portions of this note were transcribed by Maikol Melton. I, Dr. Flores personally performed the history, physical exam and medical decision-making; I reviewed and confirmed the accuracy of the information in the transcribed note. Signed by: Bryson Herrera, 06/30/16 [id number]. Stan Flores DO June 30, 2016 19:56 MAIKOL MELTON June 30, 2016 20:00
[2016-06-30 20:09] LABS: BASOPHILS % (AUTO) 0.3 % (0-3); EOSINOPHILS % (AUTO) 4.8 % (0-5); Mean Corpuscular Hemoglobin 32.3 pg (27.0-35.0); Mean Corpuscular Volume 91.8 fL (81-100); NEUTROPHILS % (AUTO) 28.8 % (40-74); Platelet Count 220 bil/L (150-400)
[2016-06-30 20:15] LABS: INR 1.01 ratio
--- NOTE | 2016-06-30 20:18 | DRSVH ---
PROCEDURE: CT BRAIN WITHOUT CONTRAST ([id number]) INDICATIONS: Stroke TECHNIQUE: Noncontrast 4.5 mm thick angled axial sections acquired from the foramen magnum to the vertex, with c oronal reformats. COMPARISON: None. FINDINGS: Image quality: Excellent. CSF spaces: Basal cisterns are patent. No extra-axial fluid collections. The ventricles are symmet betty in size and shape. Brain: No intracranial bleeds or masses. There is cerebral volume loss for age, with resultant vent ricular and sulcal prominence. There are periventricular and deep white matter chronic small vessel ischemic changes. There is intracranial internal carotid artery atherosclerosis. Skull and face: Calvarium and visualized facial bones appear intact, without suspicious lesions. Sinuses: Mild right greater than left maxillary sinus mucosal thickening. Moderate bilateral ethmoid air cell mucosal thickening. Mastoids clear. IMPRESSION: 1. No acute intracranial abnormality. 2. Sinus disease. Dictated by: Benson Plummer M.D. on 06/30/2016 at 20:16 Approved by: Benson Plummer M.D. on 06/30/2016 at 20:17
[2016-06-30 20:29] LABS: TROPONIN T < 0.010 ug/L (0.0-0.011)
[2016-06-30] MEDS ORDERED: levETIRAcetam 500 mg Tablet PO ONE (21:00)
--- NOTE | 2016-06-30 21:31 | DRSVH ---
PROCEDURE: X-RAY CHEST ONE VIEW, PORTABLE ([id number]) INDICATIONS: seizure like activity TECHNIQUE: One view of the chest was acquired. COMPARISON: None. FINDINGS: Surgical changes and devices: None. Lungs and pleura: No pleural effusions or pneumothorax. Lungs are clear. Mediastinum: Mediastinal contours appear normal. Heart size is normal. Bones and chest wall: No suspicious bony lesions. Overlying soft tissues appear unremarkable. IMPRESSION: No acute process. Dictated by: Benson Plummer M.D. on 06/30/2016 at 21:29 Approved by: Benson Plummer M.D. on 06/30/2016 at 21:29
[2016-06-30] MEDS ORDERED: LEVE100014 PO (21:41)
[2016-06-30 23:19] VITALS: BP 130/94; PULSE 66; RESP 16; O2SAT 99
== END 2016-06-30 23:16 | disposition home or self-care (01) ==
LOC: MERGE 19:33 → EDBD 19:33 → SED 19:33
DX: R56.9 Unspecified convulsions (principal); J44.9 Chronic obstructive pulmonary disease, unspecified; G20 Parkinson's disease; F31.9 Bipolar disorder, unspecified; F20.9 Schizophrenia, unspecified
CPT/HCPCS: 36415; 70450; 71010; 80053; 80164; 82948; 84484; 85025; 85610; 93005; 96360; 99285; J7030